=== PATIENT | male | born 1965 | race Caucasian/White ===

== ENCOUNTER 2016-05-02 14:04 | Inpatient (IN) | payer MEDICAID ==
[2016-05-02] VITALS (13 sets, daily range): BP systolic 73–164; BP diastolic 49–94
[~2016-05-02] VITALS: Ht 182.9 cm; Wt 73.3 kg
[~2016-05-02 14:04] MED LIST: ACID1TAB5 PO; ALB0.5V; ALPR.5T PO; ASPI-892; ASPI-933 PO; BACL20TA PO; BUDE6HFA IH; COLL30OI TOP; DOXY100C49 PO; FLC100T1 PO; FLDR.1T PO; FLUT1DIS27; FURO80TA; INSU100V6; LEVO500T69 PO; LEXAPRO; LNS30CCR; LNS30CCR PO; MELO-198 PO; METR500T PO; MULT-608; NF-METANX; NF-METANX PO; PIOG1TAB PO; ROSI1TAB; SITA100T PO; SLMFT1E; TIOT18CA; VITAMIN C; [UNRECOGNIZED DRUG - CODE]
[2016-05-02] MEDS ORDERED: NS IV 1000 ML 1,000 ML IV PRN (14:14)
[2016-05-02] MEDS ORDERED: PHARMACY TO DOSE IV SCH (14:15)
[2016-05-02] MEDS ORDERED: cefTRIAXone INJECTION 1,000 MG in NORMAL SALINE (BAXTER MINI) 50 ML IV SCH (14:30)
--- OUTSIDE RECORDS SUMMARY | 2016-05-02 14:31 | XMS REPORT | Continuity of Care Document ---
Author Author [facility] Organization [facility] Address Unknown Phone Unavailable Care Team Providers Care Soil Expert Name Role Phone CHELA PISANO DO PCP Insurance Providers Payer Name Policy Number Subscriber Name Relationship [facility] [employer] [id number] Abner Hancock 18 Self / Same As Patient Advance Directives Directive Response Recorded Date/Time Advance Directives No 06/30/10 7:08pm Health Care Power of Security Monitor No 06/30/10 7:08pm Organ Donor No 06/30/10 7:08pm Problems No known problems or medical conditions. Medications Medication Dose Route Sig Days/Qty Instructions Order Date Discontinued Date Status Insulin Glargine 08/14/08 01/10/09 Discontinued Salmeterol Xinafoate/Fluticasone 08/14/08 01/10/09 Discontinued Tiotropium [place] 08/14/08 09/02/08 Discontinued Albuterol 08/14/08 01/10/09 Discontinued Furosemide 08/14/08 09/02/08 Discontinued Papaverine Hcl 08/14/08 01/10/09 Discontinued Baclofen (Lioresal) 20 Mg PO THREE TIMES A DAY 08/14/08 Active Me-Cobalam/Lm-Folate/Pyridoxal 08/14/08 01/10/09 Discontinued Rosiglitazone/Metformin Hcl 08/14/08 01/10/09 Discontinued Aspirin 08/14/08 01/10/09 Discontinued Lansoprazole 08/14/08 09/02/08 Discontinued Alprazolam 1 Tab PO TWICE A DAY 30 Qty 08/14/08 Active Me-Cobalam/Lm-Folate/Pyridoxal 1 Tab PO 2XDAILY 09/02/08 Active Lansoprazole 30 Mg PO DAILY 09/02/08 Active Salmeterol Xinafoate/Fluticasone 09/02/08 01/10/09 Discontinued Tiotropium [place] 09/02/08 01/10/09 Discontinued [Lexapro] 09/02/08 01/10/09 Discontinued Doxycycline Hyclate 100 Mg PO bid 14 Qty 10/15/08 07/12/10 Discontinued Meloxicam (Mobic) 1 Each PO bidpc 10 Qty 10/15/08 07/12/10 Discontinued Multivitamins 01/10/09 06/30/10 Discontinued [Vitamin C] 01/10/09 06/30/10 Discontinued Rosiglitazone/Metformin Hcl 01/10/09 06/30/10 Discontinued Fludrocortisone Acetate 0.05 Mg PO DAILY 06/30/10 07/12/10 Discontinued Sitagliptin Phosphate 1 Each PO DAILY 06/30/10 Active Levofloxacin 1 Each PO DAILY STARTED ON 06/27/10 06/30/10 07/12/10 Discontinued Aspirin 81 Mg PO DAILY 06/30/10 Active Pioglitazone Hcl/Metformin Hcl 1 Each PO 06/30/10 Active Fluconazole 1 Each PO TWICE A DAY 10 Days 07/12/10 Active Metronidazole (Flagyl) 1 Each PO THREE TIMES A DAY 10 Days 07/12/10 Active Budesonide/Formoterol Fumarate 2 Puff IH TWICE A DAY 07/12/10 Active Collagenase 0 TOP TWICE A DAY 07/12/10 Active Acidophilus 2 Each PO TWICE A DAY 07/12/10 Active Social History No social history. Hospital Discharge Instructions No hospital discharge instructions. Plan of Care No plan of care. Functional Status No functional status results. Allergies, Adverse Reactions, Alerts Allergen Type Severity Reaction Status Last Updated Soap Allergy Unknown Active 05/25/08 povidone-iodine ([id number]) Allergy Unknown Active 05/25/08 Immunizations No immunization records. Vital Signs No known vital signs results. Results Laboratory Results Test Name Result Units Flags Reference Collection Date/Time Result Date/ Time Comments Urine Color YELLOW 07/15/2014 4:00pm 07/15/2014 5:06pm Urine Clarity SLIGHTLY CLOUDY 07/15/2014 4:00pm 07/15/2014 5:06pm Urine pH 6 5-9 07/15/2014 4:00pm 07/15/2014 5:06pm Urine Specific [place] 1.010 * 1.016-1.022 07/15/2014 4:00pm 2014 5:06pm Urine Protein NEGATIVE NEGATIVE 07/15/2014 4:00pm 07/15/2014 5:06pm Urine Glucose (UA) 3+ * NEGATIVE 07/15/2014 4:00pm 07/15/2014 5:06pm Urine RBC (Auto) 1+ * NEGATIVE 07/15/2014 4:00pm 07/15/2014 5:06pm Urine Ketones NEGATIVE NEGATIVE 07/15/2014 4:00pm 07/15/2014 5:06pm Urine Nitrite POSITIVE * NEGATIVE 07/15/2014 4:00pm 07/15/2014 5:06pm Urine Bilirubin NEGATIVE NEGATIVE 07/15/2014 4:00pm 07/15/2014 5: 06pm Urine Urobilinogen NORMAL MG/DL NORMAL 07/15/2014 4:00pm 07/15/2014 5: 06pm Urine Leukocyte Esterase 3+ * NEGATIVE 07/15/2014 4:00pm 07/15/2014 5: 06pm Urine RBC 2-5 /HPF * 07/15/2014 4:00pm 07/15/2014 5:06pm Urine WBC TNTC /HPF * 07/15/2014 4:00pm 07/15/2014 5:06pm Urine Bacteria LARGE /HPF * 07/15/2014 4:00pm 07/15/2014 5:06pm Urine Crystals NONE /LPF 07/15/2014 4:00pm 07/15/2014 5:06pm Urine Casts NONE /LPF 07/15/2014 4:00pm 07/15/2014 5:06pm Urine Mucus NEGATIVE /LPF 07/15/2014 4:00pm 07/15/2014 5:06pm Urine Culture Indicated YES 07/15/2014 4:00pm 07/15/2014 5:06pm Microbiology Results Procedure Source Result Collection Date/Time Result Date/Time Urine Culture Urine, Clean Catch ESCHERICHIA COLI 07/15/2014 4:00pm 2014 7:39am Procedures No known history of procedures. Encounters Encounter Location Date/Time Discharged Recurring [facility] 07/15/14 12:00pm Registered Clinic [facility] 07/08/14 12:01pm
[2016-05-02] MEDS ORDERED: FLUCONAZOLE 100 MG/50 ML 50 ML IV NR (14:44)
[2016-05-02] MEDS ORDERED: BISA10SU6 RC (15:03)
[2016-05-02] MEDS ORDERED: BACL20TA PO (15:03)
[2016-05-02] MEDS ORDERED: PIOG1TAB34 PO (15:03)
[2016-05-02] MEDS ORDERED: CIPR250T3 PO (15:03)
[2016-05-02] MEDS ORDERED: SITA100T12 PO (15:03)
[2016-05-02] MEDS ORDERED: ALPR0.5T7 PO (15:03)
--- NOTE | 2016-05-02 15:09 | Diagnostic Imaging Report ---
INDICATION: Sepsis. COMPARISON: 10/15/2008. FINDINGS: Air trapping is a symmetric chronic finding. Some mild prominence of the left lower lobe interstitial markings reflects a subtle change from the prior exam and the possibility of early changes of pneumonia could not be excluded. No effusion or pneumothorax. The heart size and vascularity are within normal limits and unchanged. IMPRESSION: While there are chronic features of COPD present, subtle increased parenchymal density in the left lower lobe has developed and the change itself raises the question of early subtle features of left lower lobe pneumonia. Dictated by: Dictated on workstation # [id number]
[2016-05-02] MEDS ORDERED: LACT1CAP61 PO (15:21)
[2016-05-02] MEDS ORDERED: ASCO-262 PO (15:21)
[2016-05-02] MEDS ORDERED: CRAN1CAP7 PO (15:21)
[2016-05-02] MEDS ORDERED: DOCU100C37 PO (15:21)
[2016-05-02] MEDS ORDERED: LANS30CA PO (15:21)
[2016-05-02 16:00] LABS: BASOPHILS % (AUTO) 0 % (0-10); EOSINOPHILS # (AUTO) 0.1 10^3/uL (0.0-0.3); EOSINOPHILS % (AUTO) 0 % (0-10); LYMPHOCYTES # (AUTO) 0.9 X 10^3 (1.0-4.0); LYMPHOCYTES % (AUTO) 5 % (12-44); MEAN CORPUSCULAR HEMOGLOBIN 28 PG (25-34); MEAN CORPUSCULAR HGB CONC 33 G/DL (32-36); MEAN CORPUSCULAR VOLUME 83 FL (80-99); MONOCYTES # (AUTO) 1.1 X 10^3 (0.0-1.0); MONOCYTES % (AUTO) 6 % (0-12); NEUTROPHILS # (AUTO) 15.6 X 10^3 (1.8-7.8); NEUTROPHILS % (AUTO) 89 % (42-75); PLATELET COUNT 174 10^3/uL (130-400); RED BLOOD COUNT 5.53 10^6/uL (4.35-5.85); RED CELL DISTRIBUTION WIDTH 14.9 % (10.0-14.5); WHITE BLOOD COUNT 17.7 10^3/uL (4.3-11.0)
[2016-05-02 16:18] LABS: ALANINE AMINOTRANSFERASE 18 U/L (0-55); ALBUMIN 4.2 G/DL (3.2-4.5); ANION GAP 14 MMOL/L (5-14); ASPARTATE AMINO TRANSFERASE 18 U/L (5-34); BAND NEUTROPHILS 1 %; BASOPHILS % (MANUAL) 0 %; BILIRUBIN,TOTAL 0.8 MG/DL (0.1-1.0); BLOOD UREA NITROGEN 10 MG/DL (7-18); BUN/CREATININE RATIO 14; CALCIUM 9.1 MG/DL (8.5-10.1); CARBON DIOXIDE 21 MMOL/L (21-32); CHLORIDE 103 MMOL/L (98-107); CREATININE SERUM 0.69 MG/DL (0.60-1.30); EOSINOPHILS % (MANUAL) 2 %; GFR ESTIMATED > 60; GLUCOSE 152 MG/DL (70-105); INR 1.1 (0.8-1.4); LYMPHOCYTES % (MANUAL) 6 %; METAMYELOCYTES % 1 %; NEUTROPHILS % (MANUAL) 84 %; POTASSIUM 3.8 MMOL/L (3.6-5.0); SODIUM 138 MMOL/L (135-145); TOTAL PROTEIN 7.8 G/DL (6.4-8.2)
[2016-05-02] MEDS: NS IV 1000 ML 1,000 ML IV SCH ×4 (16:39→21:32)
[2016-05-02] MEDS: NOREPINEPHRINE FOR DRIPS 4 MG in D5W 250 ML (IVPB) 250 ML IV SCH ×3 (16:40→22:37)
[2016-05-02] MEDS ORDERED: ACETAMINOPHEN 325 MG TABLET/CAPLET (TYLENOL) ONE (17:15)
[2016-05-02] MEDS ORDERED: ACETAMINOPHEN 325 MG TABLET/CAPLET (TYLENOL) PO PRN (17:30)
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
[2016-05-02] MEDS ORDERED: ACETAMINOPHEN 500 MG TAB (TYLENOL) PO PRN (19:00)
[2016-05-02] MEDS ORDERED: RT-ALBUTEROL/IPRATROPIUM 3 ML (DUONEB) VIAL INH PRN (20:45)
[2016-05-02] MEDS ORDERED: [UNRECOGNIZED DRUG - OTHER] PO SCH (21:00)
[2016-05-02] MEDS ORDERED: LACTOBACILLUS RHAMNOSUS R11 PO SCH (21:00)
[2016-05-02] MEDS ORDERED: METFORMIN HCL PO SCH (21:00)
[2016-05-02] MEDS ORDERED: NON-FORMULARY MEDICATION 1 EA EA (Baclofen 20 MG) PO SCH (21:00)
[2016-05-02] MEDS ORDERED: PIOGLITAZONE HCL PO SCH (21:00)
[2016-05-02] MEDS: RT-ALBUTEROL/IPRATROPIUM 3 ML (DUONEB) VIAL INH SCH (21:40)
[2016-05-02] MEDS: DOCUSATE SODIUM 100 MG (COLACE) CAP PO SCH (22:04)
[2016-05-02] MEDS: LACTOBACILLUS Acidoph/Bulgar (LACTINEX/FLORANEX) TAB PO SCH (22:04)
[2016-05-02] MEDS: BACLOFEN 10 MG (LIORESAL) TAB PO SCH (22:05)
[2016-05-03] VITALS (24 sets, daily range): BP systolic 88–147; BP diastolic 48–96
[2016-05-03] MEDS: NS IV 1000 ML 1,000 ML IV SCH ×6 (01:42→22:14)
[2016-05-03] MEDS: RT-ALBUTEROL/IPRATROPIUM 3 ML (DUONEB) VIAL INH SCH ×4 (02:36→19:54)
[2016-05-03] MEDS: NOREPINEPHRINE FOR DRIPS 4 MG in D5W 250 ML (IVPB) 250 ML IV SCH ×4 (03:34→23:34)
[2016-05-03 04:56] LABS: BASOPHILS % (AUTO) 0 % (0-10); EOSINOPHILS # (AUTO) 0.2 10^3/uL (0.0-0.3); EOSINOPHILS % (AUTO) 2 % (0-10); LYMPHOCYTES # (AUTO) 1.6 X 10^3 (1.0-4.0); LYMPHOCYTES % (AUTO) 10 % (12-44); MEAN CORPUSCULAR HEMOGLOBIN 28 PG (25-34); MEAN CORPUSCULAR HGB CONC 34 G/DL (32-36); MEAN CORPUSCULAR VOLUME 83 FL (80-99); MEAN PLATELET VOLUME 12.8 FL (7.4-10.4); MONOCYTES # (AUTO) 0.9 X 10^3 (0.0-1.0); MONOCYTES % (AUTO) 6 % (0-12); NEUTROPHILS # (AUTO) 12.4 X 10^3 (1.8-7.8); NEUTROPHILS % (AUTO) 82 % (42-75); PLATELET COUNT 175 10^3/uL (130-400); RED CELL DISTRIBUTION WIDTH 14.9 % (10.0-14.5); WHITE BLOOD COUNT 15.2 10^3/uL (4.3-11.0)
[2016-05-03 05:06] LABS: INR 1.2 (0.8-1.4); PROTHROMBIN TIME PATIENT 14.5 SEC (12.2-14.7)
[2016-05-03 05:16] LABS: ANION GAP 11 MMOL/L (5-14); BLOOD UREA NITROGEN 6 MG/DL (7-18); BUN/CREATININE RATIO 10; CARBON DIOXIDE 19 MMOL/L (21-32); CHLORIDE 111 MMOL/L (98-107); CREATININE SERUM 0.61 MG/DL (0.60-1.30); GFR ESTIMATED > 60; GLUCOSE 191 MG/DL (70-105); MAGNESIUM 1.7 MG/DL (1.8-2.4); PHOSPHORUS 2.5 MG/DL (2.3-4.7); POTASSIUM 3.3 MMOL/L (3.6-5.0); SODIUM 141 MMOL/L (135-145)
[2016-05-03 05:54] LABS: ALANINE AMINOTRANSFERASE 15 U/L (0-55); ALBUMIN 3.5 G/DL (3.2-4.5); ANION GAP 11 MMOL/L (5-14); ASPARTATE AMINO TRANSFERASE 14 U/L (5-34); BILIRUBIN,TOTAL 0.6 MG/DL (0.1-1.0); BLOOD UREA NITROGEN 6 MG/DL (7-18); BUN/CREATININE RATIO 10; CARBON DIOXIDE 19 MMOL/L (21-32); CHLORIDE 111 MMOL/L (98-107); CREATININE SERUM 0.62 MG/DL (0.60-1.30); GFR ESTIMATED > 60; GLUCOSE 194 MG/DL (70-105); POTASSIUM 3.2 MMOL/L (3.6-5.0); SODIUM 141 MMOL/L (135-145); TOTAL PROTEIN 6.6 G/DL (6.4-8.2)
[2016-05-03] MEDS: POTASSIUM CL 10MEQ/50ML IVPB 50 ML IV SCH (06:00)
[2016-05-03] MEDS: MAGNESIUM 1 GM/100 ML IVPB 100 ML IV SCH ×3 (06:00→08:58)
[2016-05-03] MEDS: KCL 20 MEQ TAB (K-DUR) PO SCH (06:00)
[2016-05-03] MEDS: metFORMIN 850 MG (GLUCOPHAGE) TAB PO SCH ×2 (06:51→17:38)
[2016-05-03] MEDS: PIOGLITAZONE 30MG (ACTOS) TAB PO SCH ×2 (06:51→17:39)
[2016-05-03] MEDS: sitaGLIPtin 50 MG (JANUVIA) TAB PO SCH (06:52)
[2016-05-03] MEDS: PANTOPRAZOLE 40 MG (PROTONIX) TAB PO SCH (06:52)
[2016-05-03] MEDS ORDERED: KCL 20 MEQ TAB (K-DUR) PO ONE ×2 (07:00→09:00)
[2016-05-03] MEDS ORDERED: MEROPENEM 1,000 MG in NORMAL SALINE (BAXTER MINI) 100 ML IV ONE (09:00)
[2016-05-03] MEDS ORDERED: NON-FORMULARY MEDICATION 1 EA EA (Sitagliptin Phosphate (Januvia) 100 MG) PO SCH (09:00)
--- NOTE | 2016-05-03 10:17 | Diagnostic Imaging Report ---
INDICATION: Dyspnea. TECHNIQUE: Single view chest at 4:51 a.m. CORRELATION STUDY: 05/02/2016. FINDINGS: The patient is significantly rotated on this study. There is also incomplete visualization of the left lung base. Given this, the heart size is enlarged. Vasculature is within normal limits. Mediastinum is mildly prominent. Incompletely visualized lung hernandez are overall clear. No infiltrate. Multiple wires over the lower cervical spine. IMPRESSION: 1. Cardiac enlargement without failure or otherwise acute findings of the chest. Dictated by: Dictated on workstation # [id number]
[2016-05-03] MEDS: BACLOFEN 10 MG (LIORESAL) TAB PO SCH ×3 (10:20→20:50)
[2016-05-03] MEDS: MEROPENEM 500 MG in NORMAL SALINE (BAXTER MINI) 100 ML IV SCH ×3 (10:21→20:50)
[2016-05-03] MEDS: FLUCONAZOLE 100 MG/50 ML 50 ML IV SCH (10:21)
--- NOTE | 2016-05-03 12:44 | CONSULTATION REPORT ---
DATE OF CONSULTATION: 05/03/2016 ATTENDING PHYSICIAN: Dr. Barrientos. SUMMARY: After reviewing the patient's record at the office and the hospital, this is a 50-year-old white man paraplegic that I had seen referred by Dr. Barrientos back in June of last year 2015 for recurrent UTI. He was wearing a [place] catheter. Quadriplegic but he had some function of his hands a little though. He has been having recurrent UTIs. At that time I put him on vitamin C daily and cranberry juice and/or tablet. We ordered a CT scan at that time. It was essentially negative except for mild distention of the bladder. We talked at that time about cystoscopy, but because of the difficulty ambulation of the patient and require him to do it in the hospital we held off at that time. He is being admitted by Dr. Barrientos because of UTI and sepsis and was found to have retention so catheter was inserted with recovery of large amount of fluid. It is being covered with proper antibiotic and has been responding well. His urine is clear. IMPRESSION: Neurogenic bladder with retention and history of urinary tract infection and with actual present infection and sepsis. PLAN: The patient said that when the nurse catheterized him she felt some me resistance so the patient may need a cystoscopy, which would be easier to do at the hospital, mostly what while he is here. We will talk to Dr. Barrientos and manage accordingly. This was fully explained to the patient. Job ID: [id number] Dictated Date: 05/03/2016 12:03:19 Efficiency Clerk Date: 05/03/2016 12:37:42/jose c
[2016-05-03] MEDS: DOCUSATE SODIUM 100 MG (COLACE) CAP PO SCH (20:50)
[2016-05-03] MEDS: BISACODYL 10 MG SUPP (DULCOLAX) RC PRN (20:50)
[2016-05-03] MEDS: LACTOBACILLUS Acidoph/Bulgar (LACTINEX/FLORANEX) TAB PO SCH (20:50)
[2016-05-04] VITALS (17 sets, daily range): BP systolic 95–149; BP diastolic 61–97
[2016-05-04] MEDS: NS IV 1000 ML 1,000 ML IV SCH ×3 (00:17→16:37)
[2016-05-04] MEDS: RT-ALBUTEROL/IPRATROPIUM 3 ML (DUONEB) VIAL INH SCH ×4 (02:48→20:20)
[2016-05-04] MEDS: MEROPENEM 500 MG in NORMAL SALINE (BAXTER MINI) 100 ML IV SCH ×4 (02:59→20:27)
[2016-05-04 04:00] LABS: INR 1.1 (0.8-1.4); PROTHROMBIN TIME PATIENT 14.1 SEC (12.2-14.7)
[2016-05-04 04:23] LABS: BASOPHILS # (AUTO) 0.1 10^3/uL (0.0-0.1); BASOPHILS % (AUTO) 1 % (0-10); EOSINOPHILS # (AUTO) 0.3 10^3/uL (0.0-0.3); EOSINOPHILS % (AUTO) 2 % (0-10); LYMPHOCYTES # (AUTO) 1.9 X 10^3 (1.0-4.0); LYMPHOCYTES % (AUTO) 18 % (12-44); MEAN CORPUSCULAR HEMOGLOBIN 28 PG (25-34); MEAN CORPUSCULAR HGB CONC 33 G/DL (32-36); MEAN CORPUSCULAR VOLUME 84 FL (80-99); MEAN PLATELET VOLUME 13.2 FL (7.4-10.4); MONOCYTES # (AUTO) 0.9 X 10^3 (0.0-1.0); MONOCYTES % (AUTO) 8 % (0-12); NEUTROPHILS # (AUTO) 7.6 X 10^3 (1.8-7.8); NEUTROPHILS % (AUTO) 71 % (42-75); PLATELET COUNT 184 10^3/uL (130-400); RED BLOOD COUNT 4.54 10^6/uL (4.35-5.85); WHITE BLOOD COUNT 10.7 10^3/uL (4.3-11.0)
[2016-05-04 04:49] LABS: ANION GAP 9 MMOL/L (5-14); BLOOD UREA NITROGEN 8 MG/DL (7-18); BUN/CREATININE RATIO 13; CALCIUM 8.1 MG/DL (8.5-10.1); CARBON DIOXIDE 18 MMOL/L (21-32); CHLORIDE 113 MMOL/L (98-107); CREATININE SERUM 0.62 MG/DL (0.60-1.30); GFR ESTIMATED > 60; GLUCOSE 148 MG/DL (70-105); MAGNESIUM 1.9 MG/DL (1.8-2.4); PHOSPHORUS 2.8 MG/DL (2.3-4.7); POTASSIUM 4.1 MMOL/L (3.6-5.0); SODIUM 140 MMOL/L (135-145)
[2016-05-04] MEDS: MAGNESIUM 1 GM/100 ML IVPB 100 ML IV SCH (05:00)
[2016-05-04] MEDS: KCL 20 MEQ TAB (K-DUR) PO SCH (05:00)
[2016-05-04] MEDS: POTASSIUM CL 10MEQ/50ML IVPB 50 ML IV SCH (05:00)
[2016-05-04 05:06] LABS: ALANINE AMINOTRANSFERASE 13 U/L (0-55); ALBUMIN 3.4 G/DL (3.2-4.5); ANION GAP 9 MMOL/L (5-14); ASPARTATE AMINO TRANSFERASE 11 U/L (5-34); BILIRUBIN,TOTAL 0.4 MG/DL (0.1-1.0); BLOOD UREA NITROGEN 8 MG/DL (7-18); BUN/CREATININE RATIO 13; CARBON DIOXIDE 18 MMOL/L (21-32); CHLORIDE 113 MMOL/L (98-107); CREATININE SERUM 0.61 MG/DL (0.60-1.30); GFR ESTIMATED > 60; GLUCOSE 148 MG/DL (70-105); POTASSIUM 4.1 MMOL/L (3.6-5.0); SODIUM 140 MMOL/L (135-145); TOTAL PROTEIN 6.4 G/DL (6.4-8.2)
[2016-05-04] MEDS: NOREPINEPHRINE FOR DRIPS 4 MG in D5W 250 ML (IVPB) 250 ML IV SCH (05:28)
[2016-05-04] MEDS: PIOGLITAZONE 30MG (ACTOS) TAB PO SCH ×2 (05:38→16:50)
[2016-05-04] MEDS: PANTOPRAZOLE 40 MG (PROTONIX) TAB PO SCH ×2 (05:39→20:27)
[2016-05-04] MEDS: sitaGLIPtin 50 MG (JANUVIA) TAB PO SCH (05:39)
[2016-05-04] MEDS: metFORMIN 850 MG (GLUCOPHAGE) TAB PO SCH ×2 (05:39→16:50)
--- NOTE | 2016-05-04 07:55 | Diagnostic Imaging Report ---
INDICATION: Followup. Sepsis. COMPARISON: 05/03/2016 FINDINGS: Single frontal radiographic view of the chest was obtained and demonstrates stable cardiac silhouette and pulmonary vasculature. There is minimal blunting of the lateral left costophrenic angle and minimal airspace disease in the left base. Appearance is similar compared to 05/02/2016. Right lung is relatively clear. No pneumothorax is seen on either side. Bony structures are stable. IMPRESSION: 1. Minimal left basilar airspace disease suspicious for effusion with atelectasis and/or infiltrate. Lateral view may be of benefit. 2. Persistent cardiomegaly, but no evidence of overt failure. Dictated by: Dictated on workstation # [id number]
[2016-05-04] MEDS: FLUCONAZOLE 100 MG/50 ML 50 ML IV SCH (08:31)
[2016-05-04] MEDS: BACLOFEN 10 MG (LIORESAL) TAB PO SCH ×3 (08:32→20:27)
--- NOTE | 2016-05-04 09:48 | Progress Note-Urology ---
Progress Note-Urology Progress Notes/Assess & Plan Progress/Assessment & Plan continue better, plan 1. keep you in when discharge 2. needs cysto either in hospital or office later on once UTI resolved plan office appointment in in 1 week Final Diagnosis Urine retention, neurogenic bladder, and UTI BECCA EVANS MD May 04, 2016 09:47
--- NOTE | 2016-05-04 11:34 | Progress Note (SOAP) ---
Subjective Subjective/Events-last exam Late entry for 05/03/16. Fwup UTI with Sepsis, hypotension, early pneumonia, diabetes mellitus type II, COPD, tobacco abuse. Gross Hematuria improved. Does admit to some recent cough. Wants to discuss possible indwelling catheter rather then [place] catheter with urology due to thinks not emptying bladder fully. Objective Exam Vital Signs Date Time Temp Pulse Resp B/P Pulse Ox O2 Delivery O2 Flow Rate FiO2 05/04/16 09:12 92 Room Air 05/04/16 08:00 98.7 Room Air 05/04/16 08:00 96 Room Air 05/04/16 06:00 67 128/72 95 NIV/CPAP 05/04/16 05:00 69 148/97 95 NIV/CPAP 05/04/16 04:05 98.1 05/04/16 04:00 94 Room Air 05/04/16 04:00 77 143/84 94 NIV/CPAP 05/04/16 03:00 87 109/69 95 NIV/CPAP 05/04/16 02:48 94 Room Air 05/04/16 02:00 68 108/77 93 NIV/CPAP 05/04/16 01:00 75 127/80 92 NIV/CPAP 05/04/16 01:00 76 05/04/16 00:00 99.8 80 114/80 94 NIV/CPAP 05/04/16 00:00 94 Room Air 05/03/16 23:00 73 106/70 95 Room Air 05/03/16 22:00 77 147/93 92 Room Air 05/03/16 21:00 82 123/96 92 Room Air 05/03/16 20:05 98.2 05/03/16 20:00 94 Room Air 05/03/16 20:00 78 109/68 99 Room Air 05/03/16 19:55 95 Room Air 05/03/16 19:00 73 92/56 93 Nasal Cannula 3.00 05/03/16 19:00 83 05/03/16 18:00 76 121/82 95 Nasal Cannula 3.00 05/03/16 17:00 77 118/71 95 Nasal Cannula 3.00 05/03/16 16:21 99.7 05/03/16 16:00 96 Room Air 05/03/16 16:00 80 114/76 93 Nasal Cannula 3.00 05/03/16 15:00 87 110/68 93 Nasal Cannula 3.00 05/03/16 14:23 95 Room Air 05/03/16 14:00 81 94/57 92 Nasal Cannula 3.00 05/03/16 13:00 80 88/48 93 Nasal Cannula 3.00 05/03/16 13:00 82 05/03/16 12:00 78 105/86 93 Nasal Cannula 3.00 05/03/16 12:00 98.0 05/03/16 12:00 96 Room Air I & O 05/04/16 07:00 Intake Total 5020 ml Output Total 5000 ml Balance 20 ml Capillary Refill : General Appearance: No Apparent Distress Neck: Supple Respiratory: Lungs Clear Decreased Breath Sounds Cardiovascular: Regular Rate, Rhythm Gallop/S3 Gastrointestinal: normal bowel sounds non tender soft Extremity: Non Tender No Calf Tenderness No Pedal Edema Neurologic/Psychiatric: Alert Oriented x3 Results Lab Laboratory Tests 05/03/16 15:28: Glucometer 177H 05/03/16 18:35: Glucometer 146H 05/04/16 03:24: Activated Partial Thromboplast Time 28, Alanine Aminotransferase (ALT/SGPT) 13, Albumin 3.4, Alkaline Phosphatase 59, Anion Gap 9, Aspartate Amino Transf (AST/ SGOT) 11, BUN/Creatinine Ratio 13, Basophils # (Auto) 0.1, Basophils (%) (Auto) 1, Blood Urea Nitrogen 8, Calcium Level 8.1L, Carbon Dioxide Level 18L, Chloride Level 113H, Creatinine 0.62, Eosinophils # (Auto) 0.3, Eosinophils (%) (Auto) 2, Estimat Glomerular Filtration Rate > 60, Glucose Level 148H, Hematocrit 38L, Hemoglobin 12.6L, INR Comment 1.1, Lymphocytes # (Auto) 1.9, Lymphocytes (%) (Auto) 18, Magnesium Level 1.9, Mean Corpuscular Hemoglobin 28, Mean Corpuscular Hemoglobin Concent 33, Mean Corpuscular Volume 84, Mean Platelet Volume 13.2H, Monocytes # (Auto) 0.9, Monocytes (%) (Auto) 8, Neutrophils # (Auto) 7.6, Neutrophils (%) (Auto) 71, Phosphorus Level 2.8, Platelet Count 184, Potassium Level 4.1, Prothrombin Time 14.1, Red Blood Count 4.54, Red Cell Distribution Width 15.0H, Sodium Level 140, Total Bilirubin 0.4, Total Protein 6.4, White Blood Count 10.7 Microbiology 05/02/16 Blood Culture - Preliminary, Resulted No growth 05/02/16 Gram Stain - Final, Resulted 05/02/16 Sputum Culture - Preliminary, Resulted Usual/normal walter isolated. 05/02/16 Urine Culture - Preliminary, Resulted Escherichia Coli Assessment/Plan Assessment/Plan Assess & Plan/Chief Complaint 1. UTI with Sepsis--growing out E. coli--hx of pseudomonas--continue merrem 2. Early Pneumonia--improving 3. Hypotension--improved 4. Diabetes mellitus--continue SSI 5. COPD--stable 6. Paraplegic with neurogenic bladder--urology consulted to discuss possible catheter change Diagnosis/Problems: Clinical Quality Measures DVT/VTE Risk/Contraindication: Risk Factor Score Per Nursin RFS Level Per Nursing on Admit: 4+=Very High CHELA PISANO DO May 04, 2016 11:34
--- NOTE | 2016-05-04 11:37 | Progress Note (SOAP) ---
Subjective Subjective/Events-last exam Fwup UTI with Sepsis, hypotension, early pneumonia, diabetes mellitus type II, COPD, tobacco abuse. Feeling better. Still with some sweats. Objective Exam Vital Signs Date Time Temp Pulse Resp B/P Pulse Ox O2 Delivery O2 Flow Rate FiO2 05/04/16 09:12 92 Room Air 05/04/16 08:00 98.7 Room Air 05/04/16 08:00 96 Room Air 05/04/16 06:00 67 128/72 95 NIV/CPAP 05/04/16 05:00 69 148/97 95 NIV/CPAP 05/04/16 04:05 98.1 05/04/16 04:00 94 Room Air 05/04/16 04:00 77 143/84 94 NIV/CPAP 05/04/16 03:00 87 109/69 95 NIV/CPAP 05/04/16 02:48 94 Room Air 05/04/16 02:00 68 108/77 93 NIV/CPAP 05/04/16 01:00 75 127/80 92 NIV/CPAP 05/04/16 01:00 76 05/04/16 00:00 99.8 80 114/80 94 NIV/CPAP 05/04/16 00:00 94 Room Air 05/03/16 23:00 73 106/70 95 Room Air 05/03/16 22:00 77 147/93 92 Room Air 05/03/16 21:00 82 123/96 92 Room Air 05/03/16 20:05 98.2 05/03/16 20:00 94 Room Air 05/03/16 20:00 78 109/68 99 Room Air 05/03/16 19:55 95 Room Air 05/03/16 19:00 73 92/56 93 Nasal Cannula 3.00 05/03/16 19:00 83 05/03/16 18:00 76 121/82 95 Nasal Cannula 3.00 05/03/16 17:00 77 118/71 95 Nasal Cannula 3.00 05/03/16 16:21 99.7 05/03/16 16:00 96 Room Air 05/03/16 16:00 80 114/76 93 Nasal Cannula 3.00 05/03/16 15:00 87 110/68 93 Nasal Cannula 3.00 05/03/16 14:23 95 Room Air 05/03/16 14:00 81 94/57 92 Nasal Cannula 3.00 05/03/16 13:00 80 88/48 93 Nasal Cannula 3.00 05/03/16 13:00 82 05/03/16 12:00 78 105/86 93 Nasal Cannula 3.00 05/03/16 12:00 98.0 05/03/16 12:00 96 Room Air I & O 05/04/16 07:00 Intake Total 5020 ml Output Total 5000 ml Balance 20 ml Capillary Refill : General Appearance: No Apparent Distress Neck: Supple Respiratory: Lungs Clear Decreased Breath Sounds Cardiovascular: Regular Rate, Rhythm Systolic Murmur Gallop/S3 Gastrointestinal: normal bowel sounds non tender soft Extremity: Non Tender No Calf Tenderness No Pedal Edema Neurologic/Psychiatric: Alert Oriented x3 Results Lab Laboratory Tests 05/03/16 15:28: Glucometer 177H 05/03/16 18:35: Glucometer 146H 05/04/16 03:24: Activated Partial Thromboplast Time 28, Alanine Aminotransferase (ALT/SGPT) 13, Albumin 3.4, Alkaline Phosphatase 59, Anion Gap 9, Aspartate Amino Transf (AST/ SGOT) 11, BUN/Creatinine Ratio 13, Basophils # (Auto) 0.1, Basophils (%) (Auto) 1, Blood Urea Nitrogen 8, Calcium Level 8.1L, Carbon Dioxide Level 18L, Chloride Level 113H, Creatinine 0.62, Eosinophils # (Auto) 0.3, Eosinophils (%) (Auto) 2, Estimat Glomerular Filtration Rate > 60, Glucose Level 148H, Hematocrit 38L, Hemoglobin 12.6L, INR Comment 1.1, Lymphocytes # (Auto) 1.9, Lymphocytes (%) (Auto) 18, Magnesium Level 1.9, Mean Corpuscular Hemoglobin 28, Mean Corpuscular Hemoglobin Concent 33, Mean Corpuscular Volume 84, Mean Platelet Volume 13.2H, Monocytes # (Auto) 0.9, Monocytes (%) (Auto) 8, Neutrophils # (Auto) 7.6, Neutrophils (%) (Auto) 71, Phosphorus Level 2.8, Platelet Count 184, Potassium Level 4.1, Prothrombin Time 14.1, Red Blood Count 4.54, Red Cell Distribution Width 15.0H, Sodium Level 140, Total Bilirubin 0.4, Total Protein 6.4, White Blood Count 10.7 Microbiology 05/02/16 Blood Culture - Preliminary, Resulted No growth 05/02/16 Gram Stain - Final, Resulted 05/02/16 Sputum Culture - Preliminary, Resulted Usual/normal walter isolated. 05/02/16 Urine Culture - Preliminary, Resulted Escherichia Coli Assessment/Plan Assessment/Plan Assess & Plan/Chief Complaint 1. UTI with Sepsis--growing out E. coli--hx of pseudomonas--continue merrem 2. Early Pneumonia--improving 3. Hypotension--improved 4. Diabetes mellitus--continue SSI 5. COPD--stable 6. Paraplegic with neurogenic bladder--urology consulted to discuss possible catheter change 7. Transfer to medical Diagnosis/Problems: Clinical Quality Measures DVT/VTE Risk/Contraindication: Risk Factor Score Per Nursin RFS Level Per Nursing on Admit: 4+=Very High CHELA PISANO DO May 04, 2016 11:37
--- NOTE | 2016-05-04 15:47 | Physical Therapy Evaluation ---
PT Evaluation-General Medical Diagnosis Admission Date May 02, 2016 at 14:27 Medical Diagnosis: sepsis/UTI Onset Date: May 02, 2016 Therapy Diagnosis Therapy Diagnosis: decreased ROM Height/Weight Height (Feet): 6 Height (Inches): 0.00 Weight (Pounds): 161 Weight (Ounces): 9.0 Precautions Precautions/Isolations: Fall Prevention, Standard Precautions, Pressure Ulcer Referral Physician: Floyd Reason for Referral: Evaluation/Treatment Medical History Pertinent Medical History: COPD, DM, Smoking Additional Medical History paraplegic with neurogenic bladder and chronic UTI's Current History sudden onset hematuria with c/o chills and diaphoresis and hypotensive Reviewed History: Yes Social History Home: Single Level Current Living Status: Spouse Entry Into Home: Ramp uses arash lift Prior/Core FIM Prior Level of Function Functional [place] Measure 0=Not Assessed/NA 4=Minimal Assistance 1=Total Assistance 5=Supervision or Setup 2=Maximal Assistance 6=Modified [place] 3=Moderate Assistance 7=Complete [place] Bed Mobility: 1 Transfers (B,C,W/C) (FIM): 1 arash lift and power chair PT Evaluation-Current Subjective Patient states, "I just need ROM!" Pain Numeric Pain Scale: 0-No Pain Location: No Pain Reported Objective Patient Orientation: Normal For Age Problem Solving: Good Attachments: SCD's, IV ROM/Strength ROM Lower Extremities limited ROM bilateral ankles and hips due to tone and clonus Strenght Lower Extremities NA Neuromuscular (Tone, Coordination, Reflexes) noted clonus bilateral LE and extension tone with movement Sensory Vision: Functional Hearing: Functional Sensation Right Lower Extremit: Impaired Sensation Left Lower Extremity: Impaired Transfers Functional [place] Measure 0=Not Assessed/NA 4=Minimal Assistance 1=Total Assistance 5=Supervision or Setup 2=Maximal Assistance 6=Modified [place] 3=Moderate Assistance 7=Complete [place] Treatment bilateral LE PROM all planes in supine x 15 min Assessment/Needs 50 y.o. male, paraplegic, will benefit from short term skilled PT to address ROM bilateral LE to prevent further diminished function. Patient uses a Arash lift for transfers PLOF. Nursing to perform this task as it is not a skilled function. Rehab Potential: Fair Post Rehab Potential-Barriers: chronic UTIs PT Short Term Goals Short Term Goals Time Frame: May 09, 2016 Additional Short Term Goals bilateral LE PROM all planes PT Plan Problem List Problem List: ROM Treatment/Plan Treatment Plan: Continue Plan of Care Treatment Plan: Education, Other (ROM) Treatment Duration: May 09, 2016 # of days/week 5 Visits Per Week: 5 Pt/Family Agrees w/Plan: Yes Safety Risks/Education Patient Education: Disease Process Teaching Recipient: Patient Teaching Methods: Discussion Response to Teaching: Verbalize Understanding Time/GCodes Time In: 1520 Time Out: 1535 Total Billed Treatment Time: 15 Total Billed Treatment 1 visit [facility] 15 min G Codes Necessary: ERMELINDA Owens PT May 04, 2016 15:47
[2016-05-04] MEDS: LACTOBACILLUS Acidoph/Bulgar (LACTINEX/FLORANEX) TAB PO SCH (20:27)
[2016-05-04] MEDS: ACETAMINOPHEN 325 MG TABLET/CAPLET (TYLENOL) PO PRN (20:27)
[2016-05-04] MEDS: BISACODYL 10 MG SUPP (DULCOLAX) RC PRN (20:27)
[2016-05-04] MEDS: DOCUSATE SODIUM 100 MG (COLACE) CAP PO SCH (20:29)
[2016-05-05] VITALS: BP 100/69
[2016-05-05] MEDS: RT-ALBUTEROL/IPRATROPIUM 3 ML (DUONEB) VIAL INH SCH ×4 (03:14→19:32)
[2016-05-05] MEDS: MEROPENEM 500 MG in NORMAL SALINE (BAXTER MINI) 100 ML IV SCH ×4 (03:53→20:19)
[2016-05-05 04:00] VITALS: BP 146/86
[2016-05-05] MEDS: NS IV 1000 ML 1,000 ML IV SCH ×2 (04:09→08:17)
[2016-05-05 05:34] LABS: BASOPHILS # (AUTO) 0.1 10^3/uL (0.0-0.1); BASOPHILS % (AUTO) 1 % (0-10); EOSINOPHILS # (AUTO) 0.3 10^3/uL (0.0-0.3); EOSINOPHILS % (AUTO) 3 % (0-10); LYMPHOCYTES # (AUTO) 1.4 X 10^3 (1.0-4.0); LYMPHOCYTES % (AUTO) 14 % (12-44); MEAN CORPUSCULAR HEMOGLOBIN 28 PG (25-34); MEAN CORPUSCULAR HGB CONC 34 G/DL (32-36); MEAN CORPUSCULAR VOLUME 84 FL (80-99); MEAN PLATELET VOLUME 12.1 FL (7.4-10.4); MONOCYTES # (AUTO) 0.8 X 10^3 (0.0-1.0); MONOCYTES % (AUTO) 8 % (0-12); NEUTROPHILS # (AUTO) 7.5 X 10^3 (1.8-7.8); NEUTROPHILS % (AUTO) 74 % (42-75); PLATELET COUNT 205 10^3/uL (130-400); RED BLOOD COUNT 4.74 10^6/uL (4.35-5.85); RED CELL DISTRIBUTION WIDTH 14.9 % (10.0-14.5); WHITE BLOOD COUNT 10.1 10^3/uL (4.3-11.0)
[2016-05-05 05:41] LABS: INR 1.1 (0.8-1.4); PROTHROMBIN TIME PATIENT 13.5 SEC (12.2-14.7)
[2016-05-05 05:49] LABS: ALANINE AMINOTRANSFERASE 12 U/L (0-55); ALBUMIN 3.7 G/DL (3.2-4.5); ANION GAP 11 MMOL/L (5-14); ASPARTATE AMINO TRANSFERASE 13 U/L (5-34); BILIRUBIN,TOTAL 0.5 MG/DL (0.1-1.0); BLOOD UREA NITROGEN 7 MG/DL (7-18); BUN/CREATININE RATIO 12; CALCIUM 8.8 MG/DL (8.5-10.1); CARBON DIOXIDE 21 MMOL/L (21-32); CHLORIDE 111 MMOL/L (98-107); CREATININE SERUM 0.57 MG/DL (0.60-1.30); GFR ESTIMATED > 60; GLUCOSE 126 MG/DL (70-105); POTASSIUM 3.9 MMOL/L (3.6-5.0); SODIUM 143 MMOL/L (135-145); TOTAL PROTEIN 6.8 G/DL (6.4-8.2)
[2016-05-05] MEDS: KCL 20 MEQ TAB (K-DUR) PO SCH (06:00)
[2016-05-05] MEDS: MAGNESIUM 1 GM/100 ML IVPB 100 ML IV SCH (06:00)
[2016-05-05] MEDS: POTASSIUM CL 10MEQ/50ML IVPB 50 ML IV SCH (06:00)
[2016-05-05 06:07] LABS: ANION GAP 11 MMOL/L (5-14); BLOOD UREA NITROGEN 6 MG/DL (7-18); BUN/CREATININE RATIO 11; CALCIUM 8.9 MG/DL (8.5-10.1); CARBON DIOXIDE 21 MMOL/L (21-32); CHLORIDE 111 MMOL/L (98-107); CREATININE SERUM 0.57 MG/DL (0.60-1.30); GFR ESTIMATED > 60; GLUCOSE 126 MG/DL (70-105); MAGNESIUM 1.8 MG/DL (1.8-2.4); PHOSPHORUS 3.8 MG/DL (2.3-4.7); POTASSIUM 3.9 MMOL/L (3.6-5.0); SODIUM 143 MMOL/L (135-145)
[2016-05-05] MEDS: sitaGLIPtin 50 MG (JANUVIA) TAB PO SCH (06:46)
[2016-05-05] MEDS: metFORMIN 850 MG (GLUCOPHAGE) TAB PO SCH ×2 (06:46→17:00)
[2016-05-05] MEDS: PIOGLITAZONE 30MG (ACTOS) TAB PO SCH ×2 (06:46→17:00)
[2016-05-05 08:00] VITALS: BP 150/89
[2016-05-05] MEDS: FLUCONAZOLE 100 MG/50 ML 50 ML IV SCH (08:17)
[2016-05-05] MEDS: PANTOPRAZOLE 40 MG (PROTONIX) TAB PO SCH ×2 (09:35→20:19)
[2016-05-05] MEDS: BACLOFEN 10 MG (LIORESAL) TAB PO SCH ×3 (09:35→20:19)
--- NOTE | 2016-05-05 09:45 | Physical Therapy Daily Note ---
PT Daily Note-Current Subjective Patient in bed pre tx, agrees to ROM of legs. Nursing apparently would like to get him into a room with a ceiling lift to make it easier to angel luis him into his wheelchair. Pain Numeric Pain Scale: 0-No Pain Appearance Patient in bed post tx with nurse call, phone, tray, all needs met. Mental Status Patient Orientation: Normal For Age Attachments: Sánchez Catheter, IV Transfers Functional [place] Measure 0=Not Assessed/NA 4=Minimal Assistance 1=Total Assistance 5=Supervision or Setup 2=Maximal Assistance 6=Modified [place] 3=Moderate Assistance 7=Complete IndependenceIRFPAI Quality Coding Scale 6 Independent with activity with or without an assistive device 5 Patient requires set up or clean up by helper. Patient completes activity by themselves 4 Supervision or touching assist (CGA). [place] provide cues , steadying assist 3 The helper provides less than half the effort to complete the activity 2 The helper provides more than half the effort to complete the activity 1 Dependent. The helper does all the effort to complete an activity 7 Patient refused to complete or attempt activity 9 The patient did not perform the activity before the current illness or injury 88 Not attempted due to Medical conditions or safety concerns Exercises bilateral lower extremity ROM in all planes Treatments ROM, repositioning Assessment Patient has bilateral knee contractures, he can get about 20 degrees from full knee extension bilaterally PT Short Term Goals Short Term Goals Time Frame: May 09, 2016 PT Plan Problem List Problem List: Activity Tolerance, Functional Strength, Safety, Balance, Transfer, Bed Mobility, ROM Treatment/Plan Treatment Plan: Continue Plan of Care Treatment Plan: Bed Mobility, Education, Functional Activity Yvonne, Other (ROM) , Therapeutic Exercise Treatment Duration: May 09, 2016 Visits Per Week: 5 Safety Risks/Education Patient Education: Correct Positioning Teaching Recipient: Patient Teaching Methods: Demonstration, Discussion Response to Teaching: Reinforcement Needed Time/GCodes Time In: 915 Time Out: 930 Total Billed Treatment Time: 15 Total Billed Treatment 1 visit EX 15 min ZURDO CHONG PT May 05, 2016 09:45
--- NOTE | 2016-05-05 09:58 | Progress Note (SOAP) ---
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 HE HAS UROSEPSIS, CHRONIC [place] CATHETER. HE HAD URINARY RETENTION AND DR. EVANS IS CONSULTED ON THE PATIENT. PT REPORTS THAT HE IS FEELING BETTER TODAY, STILL HAS SOME SYMPTOMS OF INTERMITTENT ELEVATED TEMPERATURE, BUT HE DOES FEEL BETTER THAN ON ADMISSION. Review of Systems General: Fatigue HEENT: No Head Aches Pulmonary: No Dyspnea, No Cough Cardiovascular: No: Chest Pain, Palpitations Gastrointestinal: : Other (PT DOES REPORTS HE PASSES GAS ON HIS OWN, BUT REQURIES SUPPOSITORIES OR RECTAL STIMULATION FOR BOWEL MOVEMENTS)No: Abdominal Pain, Constipation, Nausea Neurological: : WeaknessNo: Confusion Objective Exam Vital Signs Date Time Temp Pulse Resp B/P Pulse Ox O2 Delivery O2 Flow Rate FiO2 05/05/16 08:00 99.8 72 18 150/89 95 Room Air 05/05/16 07:48 94 Room Air 05/05/16 04:02 98.3 05/05/16 04:00 97.9 63 20 146/86 95 Room Air 05/05/16 03:14 92 Room Air 05/05/16 00:00 99.4 77 18 100/69 95 Room Air 05/04/16 20:30 Room Air 05/04/16 20:23 96 Room Air 05/04/16 20:10 98.5 75 20 121/62 95 Room Air 05/04/16 16:15 99.2 82 20 95/66 93 Room Air 05/04/16 16:00 98.5 Room Air 05/04/16 16:00 96 Room Air 05/04/16 15:00 77 119/70 93 Room Air 05/04/16 14:58 94 Room Air 05/04/16 14:00 99/75 91 Room Air 05/04/16 13:00 69 05/04/16 13:00 97/74 94 Room Air 05/04/16 12:00 98.0 Room Air 05/04/16 12:00 70 119/76 93 Room Air 05/04/16 12:00 96 Room Air 05/04/16 11:00 122/73 93 Room Air I & O 05/05/16 07:00 Intake Total 2600 ml Output Total 5800 ml Balance -3200 ml Capillary Refill : General Appearance: No Apparent Distress WD/WN HEENT: PERRL/EOMI Pharynx Normal Neck: Full Range of Motion Respiratory: Chest Non Tender Decreased Breath Sounds (AT BASES) Cardiovascular: Regular Rate, Rhythm Gastrointestinal: normal bowel sounds non tender soft no organomegaly no pulsatile mass Extremity: No Pedal Edema Neurologic/Psychiatric: Alert Oriented x3 Other (PARAPLEGIA - UNABLE TO CONTROL LOWER LEGS, CAN CONTROL ARMS, BUT FINGERS/HANDS ARE NOT MOBILE, CONTRACTED FINGERS) Skin: Warm/Dry Results Lab Laboratory Tests 05/04/16 18:04: Glucometer 174H 05/05/16 05:17: Alanine Aminotransferase (ALT/SGPT) 12, Albumin 3.7, Alkaline Phosphatase 67, Anion Gap 11, Aspartate Amino Transf (AST/SGOT) 13, BUN/Creatinine Ratio 11, Basophils # (Auto) 0.1, Basophils (%) (Auto) 1, Blood Urea Nitrogen 6L, Calcium Level 8.9, Carbon Dioxide Level 21, Chloride Level 111H, Creatinine 0.57L, Eosinophils # (Auto) 0.3, Eosinophils (%) (Auto) 3, Estimat Glomerular Filtration Rate > 60, Glucose Level 126H, Hematocrit 40, Hemoglobin 13.3, Lymphocytes # (Auto) 1.4, Lymphocytes (%) (Auto) 14, Magnesium Level 1.8, Mean Corpuscular Hemoglobin 28, Mean Corpuscular Hemoglobin Concent 34, Mean Corpuscular Volume 84, Mean Platelet Volume 12.1H, Monocytes # (Auto) 0.8, Monocytes (%) (Auto) 8, Neutrophils # (Auto) 7.5, Neutrophils (%) (Auto) 74, Phosphorus Level 3.8, Platelet Count 205, Potassium Level 3.9, Red Blood Count 4.74, Red Cell Distribution Width 14.9H, Sodium Level 143, Total Bilirubin 0.5, Total Protein 6.8, White Blood Count 10.1 05/05/16 05:18: Activated Partial Thromboplast Time 28, INR Comment 1.1, Prothrombin Time 13.5 05/05/16 05:19: Glucometer 122H Microbiology 05/02/16 Blood Culture - Preliminary, Resulted No growth 05/02/16 Gram Stain - Final, Complete 05/02/16 Sputum Culture - Final, Complete Usual/normal walter isolated. 05/02/16 Urine Culture - Preliminary, Resulted Escherichia Coli Probable Coag Negative Staph Yeast Species Assessment/Plan Assessment/Plan Assess & Plan/Chief Complaint ECOLI URINARY TRACT INFECTION NEUROGENIC BLADDER PARAPLEGIA PNEUMONIA DIABETES MELLITUS COPD Diagnosis/Problems: Clinical Quality Measures DVT/VTE Risk/Contraindication: Risk Factor Score Per Nursin RFS Level Per Nursing on Admit: 4+=Very High JOSLYN INIGUEZ MD May 05, 2016 09:58
[2016-05-05 12:00] VITALS: BP 148/84
[2016-05-05 16:00] VITALS: BP 110/60
[2016-05-05 20:00] VITALS: BP 114/62
[2016-05-05] MEDS: LACTOBACILLUS Acidoph/Bulgar (LACTINEX/FLORANEX) TAB PO SCH (20:19)
[2016-05-05] MEDS: DOCUSATE SODIUM 100 MG (COLACE) CAP PO SCH (20:19)
[2016-05-05] MEDS: BISACODYL 10 MG SUPP (DULCOLAX) RC PRN (22:08)
[2016-05-06] VITALS: BP 153/87
[2016-05-06] MEDS: NS IV 1000 ML 1,000 ML IV SCH ×2 (01:46→14:42)
[2016-05-06] MEDS: MEROPENEM 500 MG in NORMAL SALINE (BAXTER MINI) 100 ML IV SCH ×4 (03:46→21:50)
[2016-05-06] MEDS: ALPRAZolam 0.5 MG (XANAX) TAB PO PRN (04:40)
[2016-05-06 05:28] LABS: BASOPHILS # (AUTO) 0.1 10^3/uL (0.0-0.1); BASOPHILS % (AUTO) 1 % (0-10); EOSINOPHILS # (AUTO) 0.3 10^3/uL (0.0-0.3); EOSINOPHILS % (AUTO) 3 % (0-10); LYMPHOCYTES # (AUTO) 1.6 X 10^3 (1.0-4.0); LYMPHOCYTES % (AUTO) 15 % (12-44); MEAN CORPUSCULAR HEMOGLOBIN 28 PG (25-34); MEAN CORPUSCULAR HGB CONC 34 G/DL (32-36); MEAN CORPUSCULAR VOLUME 83 FL (80-99); MEAN PLATELET VOLUME 12.2 FL (7.4-10.4); MONOCYTES # (AUTO) 0.8 X 10^3 (0.0-1.0); MONOCYTES % (AUTO) 7 % (0-12); NEUTROPHILS # (AUTO) 8.3 X 10^3 (1.8-7.8); NEUTROPHILS % (AUTO) 75 % (42-75); PLATELET COUNT 222 10^3/uL (130-400); RED BLOOD COUNT 5.01 10^6/uL (4.35-5.85); RED CELL DISTRIBUTION WIDTH 14.9 % (10.0-14.5); WHITE BLOOD COUNT 11.2 10^3/uL (4.3-11.0)
[2016-05-06 05:50] LABS: INR 1.1 (0.8-1.4); PROTHROMBIN TIME PATIENT 13.6 SEC (12.2-14.7)
[2016-05-06] MEDS: POTASSIUM CL 10MEQ/50ML IVPB 50 ML IV SCH (06:00)
[2016-05-06] MEDS: KCL 20 MEQ TAB (K-DUR) PO SCH (06:00)
[2016-05-06] MEDS: MAGNESIUM 1 GM/100 ML IVPB 100 ML IV SCH (06:00)
[2016-05-06 06:09] LABS: ALANINE AMINOTRANSFERASE 14 U/L (0-55); ALBUMIN 3.7 G/DL (3.2-4.5); ANION GAP 12 MMOL/L (5-14); ASPARTATE AMINO TRANSFERASE 12 U/L (5-34); BILIRUBIN,TOTAL 0.5 MG/DL (0.1-1.0); BLOOD UREA NITROGEN 8 MG/DL (7-18); BUN/CREATININE RATIO 13; CALCIUM 8.9 MG/DL (8.5-10.1); CARBON DIOXIDE 22 MMOL/L (21-32); CHLORIDE 107 MMOL/L (98-107); CREATININE SERUM 0.64 MG/DL (0.60-1.30); GFR ESTIMATED > 60; GLUCOSE 155 MG/DL (70-105); POTASSIUM 3.8 MMOL/L (3.6-5.0); SODIUM 141 MMOL/L (135-145)
[2016-05-06] MEDS: sitaGLIPtin 50 MG (JANUVIA) TAB PO SCH (06:18)
[2016-05-06] MEDS: PIOGLITAZONE 30MG (ACTOS) TAB PO SCH ×2 (06:19→16:31)
[2016-05-06] MEDS: metFORMIN 850 MG (GLUCOPHAGE) TAB PO SCH ×2 (06:19→16:31)
[2016-05-06 06:25] LABS: ANION GAP 13 MMOL/L (5-14); BLOOD UREA NITROGEN 8 MG/DL (7-18); BUN/CREATININE RATIO 13; CARBON DIOXIDE 22 MMOL/L (21-32); CHLORIDE 107 MMOL/L (98-107); CREATININE SERUM 0.64 MG/DL (0.60-1.30); GFR ESTIMATED > 60; GLUCOSE 155 MG/DL (70-105); MAGNESIUM 1.6 MG/DL (1.8-2.4); POTASSIUM 3.8 MMOL/L (3.6-5.0); SODIUM 142 MMOL/L (135-145)
[2016-05-06] MEDS: RT-ALBUTEROL/IPRATROPIUM 3 ML (DUONEB) VIAL INH SCH ×3 (07:30→20:20)
[2016-05-06 08:00] VITALS: BP 128/83
[2016-05-06] MEDS: FLUCONAZOLE 100 MG/50 ML 50 ML IV SCH (08:57)
[2016-05-06] MEDS: BACLOFEN 10 MG (LIORESAL) TAB PO SCH ×3 (08:59→21:50)
[2016-05-06] MEDS: PANTOPRAZOLE 40 MG (PROTONIX) TAB PO SCH ×2 (08:59→21:51)
--- NOTE | 2016-05-06 10:08 | Progress Note (SOAP) ---
Subjective Subjective/Events-last exam PT IS A 50 Y/O MALE WHO IS A CLINIC PATIENT OF DR. 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 THE PATIENT REPORTS THAT HIS SUPPOSITORIES FROM THE HOSPITAL ARE NOT NETTING THE GI RESULTS THAT HE IS USED TO FROM HIS HOME SUPPOSITORIES AND IS WONDERING ABOUT USING HIS HOME MEDICATION FOR BETTER RESULTS. Review of Systems General: Fatigue Malaise Gastrointestinal: : Constipation Genitourinary: Incontinence Retention Neurological: : Weakness Objective Exam Vital Signs Date Time Temp Pulse Resp B/P Pulse Ox O2 Delivery O2 Flow Rate FiO2 05/06/16 08:00 98.0 77 20 128/83 92 Room Air 05/06/16 07:30 92 Room Air 05/06/16 00:00 98.4 72 20 153/87 95 Room Air 05/05/16 20:05 Room Air 05/05/16 20:00 98.7 76 20 114/62 94 Room Air 05/05/16 19:32 95 NIV CPAP 21 05/05/16 16:00 99.4 82 20 110/60 94 Room Air 05/05/16 15:57 96 05/05/16 15:49 96 Room Air 05/05/16 12:00 99.3 70 20 148/84 93 Room Air I & O 05/06/16 07:00 Intake Total 2610 ml Output Total 4575 ml Balance -1965 ml Capillary Refill : General Appearance: WD/WN HEENT: PERRL/EOMI Pharynx Normal Neck: Full Range of Motion Supple Respiratory: Chest Non Tender Decreased Breath Sounds Cardiovascular: Regular Rate, Rhythm Gastrointestinal: normal bowel sounds soft Neurologic/Psychiatric: Alert Oriented x3 Skin: Warm/Dry Lymphatic: No Adenopathy Results Lab Laboratory Tests 05/05/16 11:04: Glucometer 153H 05/05/16 16:20: Glucometer 180H 05/05/16 20:45: Glucometer 130H 05/06/16 05:10: Activated Partial Thromboplast Time 30, Alanine Aminotransferase (ALT/SGPT) 14, Albumin 3.7, Alkaline Phosphatase 67, Anion Gap 13, Aspartate Amino Transf (AST/ SGOT) 12, BUN/Creatinine Ratio 13, Basophils # (Auto) 0.1, Basophils (%) (Auto) 1, Blood Urea Nitrogen 8, Calcium Level 9.0, Carbon Dioxide Level 22, Chloride Level 107, Creatinine 0.64, Eosinophils # (Auto) 0.3, Eosinophils (%) (Auto) 3, Estimat Glomerular Filtration Rate > 60, Glucose Level 155H, Hematocrit 42, Hemoglobin 13.9, INR Comment 1.1, Lymphocytes # (Auto) 1.6, Lymphocytes (%) ( Auto) 15, Magnesium Level 1.6L, Mean Corpuscular Hemoglobin 28, Mean Corpuscular Hemoglobin Concent 34, Mean Corpuscular Volume 83, Mean Platelet Volume 12.2H, Monocytes # (Auto) 0.8, Monocytes (%) (Auto) 7, Neutrophils # ( Auto) 8.3H, Neutrophils (%) (Auto) 75, Phosphorus Level 4.0, Platelet Count 222 , Potassium Level 3.8, Prothrombin Time 13.6, Red Blood Count 5.01, Red Cell Distribution Width 14.9H, Sodium Level 142, Total Bilirubin 0.5, Total Protein 7.0, White Blood Count 11.2H Microbiology 05/02/16 Blood Culture - Preliminary, Resulted No growth 05/02/16 Gram Stain - Final, Complete 05/02/16 Sputum Culture - Final, Complete Usual/normal walter isolated. 05/02/16 Urine Culture - Final, Complete Escherichia Coli Staph, Coag Neg ([facility]) Yeast Species Assessment/Plan Assessment/Plan Assess & Plan/Chief Complaint ECOLI URINARY TRACT INFECTION - PT ON MEROPENEM - CONTINUE WITH CURRENT TREATMENT - DR. EVANS TO SEE PT TOMORROW FOR FURTHER WORK-UP RECOMMENDATIONS. NEUROGENIC BLADDER - FRANKLIN IN PLACE PARAPLEGIA PNEUMONIA - CONTINUE WITH MEROPENEM DIABETES MELLITUS - MONITOR FSBS, ADJUST MEDICATIONS IF NEEDED FOR APPROPRIATE GLUCOSE CONTROL COPD - PT SMOKES, CONTINUE WITH EDUCATION AND SUPPORTIVE CARE. CHRONIC CONSTIPATION DUE TO PARAPLEGIA - DULCOLAX SUPPOSITORIES. Diagnosis/Problems: Clinical Quality Measures DVT/VTE Risk/Contraindication: Risk Factor Score Per Nursin RFS Level Per Nursing on Admit: 4+=Very High JOSLYN INIGUEZ MD May 06, 2016 10:08
[2016-05-06] MEDS ORDERED: BISACODYL 10 MG SUPP (DULCOLAX) PR SCH (14:00)
[2016-05-06] MEDS ORDERED: BISACODYL 10 MG SUPP (DULCOLAX) PR PRN (14:30)
[2016-05-06 16:00] VITALS: BP 95/61
[2016-05-06] MEDS: LACTOBACILLUS Acidoph/Bulgar (LACTINEX/FLORANEX) TAB PO SCH (21:50)
[2016-05-06] MEDS: DOCUSATE SODIUM 100 MG (COLACE) CAP PO SCH (21:51)
[2016-05-07] VITALS: BP 129/71
[2016-05-07] MEDS: MEROPENEM 500 MG in NORMAL SALINE (BAXTER MINI) 100 ML IV SCH ×4 (02:50→21:37)
[2016-05-07 05:17] LABS: BASOPHILS # (AUTO) 0.1 10^3/uL (0.0-0.1); BASOPHILS % (AUTO) 0 % (0-10); EOSINOPHILS # (AUTO) 0.2 10^3/uL (0.0-0.3); EOSINOPHILS % (AUTO) 2 % (0-10); LYMPHOCYTES # (AUTO) 1.7 X 10^3 (1.0-4.0); LYMPHOCYTES % (AUTO) 14 % (12-44); MEAN CORPUSCULAR HEMOGLOBIN 28 PG (25-34); MEAN CORPUSCULAR HGB CONC 34 G/DL (32-36); MEAN CORPUSCULAR VOLUME 83 FL (80-99); MEAN PLATELET VOLUME 12.2 FL (7.4-10.4); MONOCYTES % (AUTO) 8 % (0-12); NEUTROPHILS # (AUTO) 9.8 X 10^3 (1.8-7.8); NEUTROPHILS % (AUTO) 76 % (42-75); PLATELET COUNT 213 10^3/uL (130-400); RED BLOOD COUNT 4.62 10^6/uL (4.35-5.85); RED CELL DISTRIBUTION WIDTH 14.7 % (10.0-14.5); WHITE BLOOD COUNT 12.8 10^3/uL (4.3-11.0)
[2016-05-07 05:27] LABS: INR 1.1 (0.8-1.4); PROTHROMBIN TIME PATIENT 13.5 SEC (12.2-14.7)
[2016-05-07 05:38] LABS: ALANINE AMINOTRANSFERASE 14 U/L (0-55); ALBUMIN 3.6 G/DL (3.2-4.5); ANION GAP 14 MMOL/L (5-14); ASPARTATE AMINO TRANSFERASE 11 U/L (5-34); BILIRUBIN,TOTAL 0.4 MG/DL (0.1-1.0); BLOOD UREA NITROGEN 7 MG/DL (7-18); BUN/CREATININE RATIO 11; CALCIUM 8.8 MG/DL (8.5-10.1); CARBON DIOXIDE 21 MMOL/L (21-32); CHLORIDE 106 MMOL/L (98-107); CREATININE SERUM 0.63 MG/DL (0.60-1.30); GFR ESTIMATED > 60; GLUCOSE 153 MG/DL (70-105); MAGNESIUM 1.7 MG/DL (1.8-2.4); PHOSPHORUS 3.7 MG/DL (2.3-4.7); POTASSIUM 3.5 MMOL/L (3.6-5.0); SODIUM 141 MMOL/L (135-145); TOTAL PROTEIN 6.8 G/DL (6.4-8.2)
[2016-05-07] MEDS: KCL 20 MEQ TAB (K-DUR) PO SCH (06:00)
[2016-05-07] MEDS: MAGNESIUM 1 GM/100 ML IVPB 100 ML IV SCH (06:00)
[2016-05-07] MEDS: POTASSIUM CL 10MEQ/50ML IVPB 50 ML IV SCH (06:00)
[2016-05-07] MEDS: PIOGLITAZONE 30MG (ACTOS) TAB PO SCH ×2 (06:09→16:25)
[2016-05-07] MEDS: metFORMIN 850 MG (GLUCOPHAGE) TAB PO SCH ×2 (06:09→16:25)
[2016-05-07] MEDS: sitaGLIPtin 50 MG (JANUVIA) TAB PO SCH (06:10)
--- NOTE | 2016-05-07 07:05 | Progress Note-Urology ---
Progress Note-Urology Progress Notes/Assess & Plan Progress/Assessment & Plan cysto tomorrow bedside, local Final Diagnosis urine retention BECCA EVANS MD May 07, 2016 07:05
[2016-05-07] MEDS: RT-ALBUTEROL/IPRATROPIUM 3 ML (DUONEB) VIAL INH SCH ×3 (07:15→22:43)
[2016-05-07 08:00] VITALS: BP 143/63
[2016-05-07] MEDS: FLUCONAZOLE 100 MG/50 ML 50 ML IV SCH (08:05)
[2016-05-07] MEDS: PANTOPRAZOLE 40 MG (PROTONIX) TAB PO SCH ×2 (08:06→21:36)
[2016-05-07] MEDS: NS IV 1000 ML 1,000 ML IV SCH (08:06)
[2016-05-07] MEDS: BACLOFEN 10 MG (LIORESAL) TAB PO SCH ×3 (08:06→21:37)
--- NOTE | 2016-05-07 08:51 | Progress Note (SOAP) ---
Subjective Subjective/Events-last exam Fwup UTI with Sepsis, hypotension, early pneumonia, diabetes mellitus type II, COPD, tobacco abuse. Some congestion in the morning but otherwise feeling good. No further sweats. Objective Exam Vital Signs Date Time Temp Pulse Resp B/P Pulse Ox O2 Delivery O2 Flow Rate FiO2 05/07/16 07:15 94 Room Air 05/07/16 00:00 98.7 80 20 129/71 93 Room Air 05/06/16 20:20 94 Room Air 05/06/16 20:05 Room Air 05/06/16 16:00 97.2 86 20 95/61 94 Room Air 05/06/16 15:19 93 Room Air I & O 05/07/16 07:00 Intake Total 3770 ml Output Total 3550 ml Balance 220 ml Capillary Refill : General Appearance: No Apparent Distress Neck: Supple Respiratory: Lungs Clear Decreased Breath Sounds Cardiovascular: Regular Rate, Rhythm Systolic Murmur Gallop/S3 Gastrointestinal: normal bowel sounds non tender soft Extremity: Non Tender No Calf Tenderness No Pedal Edema Neurologic/Psychiatric: Alert Oriented x3 Results Lab Laboratory Tests 05/06/16 11:08: Glucometer 139H 05/06/16 15:38: Glucometer 194H 05/06/16 20:15: Glucometer 126H 05/07/16 04:40: Activated Partial Thromboplast Time 31, Alanine Aminotransferase (ALT/SGPT) 14, Albumin 3.6, Alkaline Phosphatase 68, Anion Gap 14, Aspartate Amino Transf (AST/ SGOT) 11, BUN/Creatinine Ratio 11, Basophils # (Auto) 0.1, Basophils (%) (Auto) 0, Blood Urea Nitrogen 7, Calcium Level 8.8, Carbon Dioxide Level 21, Chloride Level 106, Creatinine 0.63, Eosinophils # (Auto) 0.2, Eosinophils (%) (Auto) 2, Estimat Glomerular Filtration Rate > 60, Glucose Level 153H, Hematocrit 38L, Hemoglobin 12.9L, INR Comment 1.1, Lymphocytes # (Auto) 1.7, Lymphocytes (%) ( Auto) 14, Magnesium Level 1.7L, Mean Corpuscular Hemoglobin 28, Mean Corpuscular Hemoglobin Concent 34, Mean Corpuscular Volume 83, Mean Platelet Volume 12.2H, Monocytes # (Auto) 1.0, Monocytes (%) (Auto) 8, Neutrophils # ( Auto) 9.8H, Neutrophils (%) (Auto) 76H, Phosphorus Level 3.7, Platelet Count 213 , Potassium Level 3.5L, Prothrombin Time 13.5, Red Blood Count 4.62, Red Cell Distribution Width 14.7H, Sodium Level 141, Total Bilirubin 0.4, Total Protein 6.8, White Blood Count 12.8H Microbiology 05/02/16 Blood Culture - Preliminary, Resulted No growth 05/02/16 Gram Stain - Final, Complete 05/02/16 Sputum Culture - Final, Complete Usual/normal walter isolated. 05/02/16 Urine Culture - Final, Complete Escherichia Coli Staph, Coag Neg ([facility]) Yeast Species Assessment/Plan Assessment/Plan Assess & Plan/Chief Complaint 1. UTI with Sepsis--growing out E. coli--hx of pseudomonas--continue merrem, repeat UA due to elevating WBC count 2. Early Pneumonia--improving clinically, will check 2 view CXR 3. Hypotension--improved 4. Diabetes mellitus--continue SSI 5. COPD--stable 6. Paraplegic with neurogenic bladder--urology consulted to discuss possible catheter change Diagnosis/Problems: Clinical Quality Measures DVT/VTE Risk/Contraindication: Risk Factor Score Per Nursin RFS Level Per Nursing on Admit: 4+=Very High CHELA PISANO DO May 07, 2016 08:51
--- NOTE | 2016-05-07 10:04 | Physical Therapy Daily Note ---
PT Daily Note-Current Subjective Patient agrees to ROM bilateral LE Pain Numeric Pain Scale: 0-No Pain Location: No Pain Reported Mental Status Patient Orientation: Normal For Age Attachments: IV Transfers Functional [place] Measure 0=Not Assessed/NA 4=Minimal Assistance 1=Total Assistance 5=Supervision or Setup 2=Maximal Assistance 6=Modified [place] 3=Moderate Assistance 7=Complete IndependenceIRFPAI Quality Coding Scale 6 Independent with activity with or without an assistive device 5 Patient requires set up or clean up by helper. Patient completes activity by themselves 4 Supervision or touching assist (CGA). [place] provide cues , steadying assist 3 The helper provides less than half the effort to complete the activity 2 The helper provides more than half the effort to complete the activity 1 Dependent. The helper does all the effort to complete an activity 7 Patient refused to complete or attempt activity 9 The patient did not perform the activity before the current illness or injury 88 Not attempted due to Medical conditions or safety concerns Transfers (B, C, W/C) (FIM): 1 Scootin Exercises Supine Ex: Ankle pumps, Heel Slides, Straight leg raise, Hip abd/add in supine x 15 min all planes Assessment Patient tolerated treatment and will dismiss to home this week. PT Short Term Goals Short Term Goals Time Frame: May 09, 2016 PT Plan Treatment/Plan Treatment Plan: Continue Plan of Care Treatment Plan: Bed Mobility, Education, Functional Activity Yvonne, Other (ROM) , Therapeutic Exercise Treatment Duration: May 09, 2016 Visits Per Week: 5 Time/GCodes Time In: 915 Time Out: 930 Total Billed Treatment Time: 15 Total Billed Treatment 1 visit EX 15 min ERMELINDA ASCENCIO PT May 07, 2016 10:04
--- NOTE | 2016-05-07 10:19 | Diagnostic Imaging Report ---
CLINICAL INDICATION: Patient with congestion and cough. Patient admitted for UTI. EXAM: Chest x-ray, PA and lateral views. COMPARISON: Chest x-ray dated 05/04/2016. FINDINGS: LUNGS/PLEURA: Again seen is left basilar atelectasis versus infiltrate. There is no pleural effusion. The remaining lungs are clear. There is no pleural effusion. MEDIASTINUM: Unremarkable. PULMONARY VASCULATURE: Unremarkable. HEART: Unremarkable. BONES/EXTRATHORACIC SOFT TISSUE: There are degenerative spurs seen throughout the spine. IMPRESSION: Stable chest x-ray exam with mild left basilar atelectasis versus infiltrate. Dictated by: Dictated on workstation # [id number]
[2016-05-07 11:45] VITALS: BP 100/50
[2016-05-07 12:00] VITALS: BP 90/63
[2016-05-07 12:03] LABS: BILIRUBIN,URINE NEGATIVE (NEGATIVE); KETONES,URINE NEGATIVE (NEGATIVE); LEUKOCYTE ESTERASE ,URINE 3+ (NEGATIVE); NITRITE,URINE NEGATIVE (NEGATIVE); PH,URINE 7 (5-9); PROTEIN,URINE NEGATIVE (NEGATIVE); UROBILINOGEN,URINE NORMAL (NORMAL)
[2016-05-07] MEDS: ACETAMINOPHEN 325 MG TABLET/CAPLET (TYLENOL) PO PRN (12:37)
[2016-05-07] MEDS: ALPRAZolam 0.5 MG (XANAX) TAB PO PRN (14:58)
[2016-05-07 15:56] VITALS: BP 86/56
[2016-05-07 16:00] VITALS: BP 96/62
[2016-05-07] MEDS: LACTOBACILLUS Acidoph/Bulgar (LACTINEX/FLORANEX) TAB PO SCH (21:36)
[2016-05-07] MEDS: DOCUSATE SODIUM 100 MG (COLACE) CAP PO SCH (21:36)
[2016-05-08] VITALS: BP 120/81
[2016-05-08] MEDS: MEROPENEM 500 MG in NORMAL SALINE (BAXTER MINI) 100 ML IV SCH (03:05)
[2016-05-08] MEDS: POTASSIUM CL 10MEQ/50ML IVPB 50 ML IV SCH (06:00)
[2016-05-08] MEDS: KCL 20 MEQ TAB (K-DUR) PO SCH (06:00)
[2016-05-08] MEDS: MAGNESIUM 1 GM/100 ML IVPB 100 ML IV SCH (06:00)
[2016-05-08 06:03] LABS: BASOPHILS # (AUTO) 0.1 10^3/uL (0.0-0.1); BASOPHILS % (AUTO) 1 % (0-10); EOSINOPHILS # (AUTO) 0.3 10^3/uL (0.0-0.3); EOSINOPHILS % (AUTO) 3 % (0-10); LYMPHOCYTES # (AUTO) 1.8 X 10^3 (1.0-4.0); LYMPHOCYTES % (AUTO) 16 % (12-44); MEAN CORPUSCULAR HEMOGLOBIN 28 PG (25-34); MEAN CORPUSCULAR HGB CONC 33 G/DL (32-36); MEAN CORPUSCULAR VOLUME 83 FL (80-99); MEAN PLATELET VOLUME 12.5 FL (7.4-10.4); MONOCYTES # (AUTO) 0.8 X 10^3 (0.0-1.0); MONOCYTES % (AUTO) 8 % (0-12); NEUTROPHILS # (AUTO) 7.9 X 10^3 (1.8-7.8); NEUTROPHILS % (AUTO) 73 % (42-75); PLATELET COUNT 233 10^3/uL (130-400); RED BLOOD COUNT 4.87 10^6/uL (4.35-5.85); RED CELL DISTRIBUTION WIDTH 14.7 % (10.0-14.5); WHITE BLOOD COUNT 10.8 10^3/uL (4.3-11.0)
[2016-05-08] MEDS: sitaGLIPtin 50 MG (JANUVIA) TAB PO SCH (06:06)
[2016-05-08] MEDS: PIOGLITAZONE 30MG (ACTOS) TAB PO SCH (06:06)
[2016-05-08] MEDS: metFORMIN 850 MG (GLUCOPHAGE) TAB PO SCH (06:06)
[2016-05-08 06:16] LABS: INR 1.1 (0.8-1.4); PROTHROMBIN TIME PATIENT 13.4 SEC (12.2-14.7)
[2016-05-08 06:24] LABS: ALANINE AMINOTRANSFERASE 15 U/L (0-55); ANION GAP 13 MMOL/L (5-14); ASPARTATE AMINO TRANSFERASE 16 U/L (5-34); BILIRUBIN,TOTAL 0.4 MG/DL (0.1-1.0); BLOOD UREA NITROGEN 9 MG/DL (7-18); BUN/CREATININE RATIO 13; CALCIUM 9.3 MG/DL (8.5-10.1); CARBON DIOXIDE 22 MMOL/L (21-32); CHLORIDE 106 MMOL/L (98-107); GFR ESTIMATED > 60; GLUCOSE 153 MG/DL (70-105); MAGNESIUM 1.9 MG/DL (1.8-2.4); PHOSPHORUS 3.4 MG/DL (2.3-4.7); POTASSIUM 3.8 MMOL/L (3.6-5.0); SODIUM 141 MMOL/L (135-145); TOTAL PROTEIN 7.9 G/DL (6.4-8.2)
--- NOTE | 2016-05-08 07:12 | Progress Note-Post Operative ---
Post-Operative Progess Note Pre-Operative Diagnosis urine retention Post-Operative Diagnosis same Post-Op Procedure Note Date of Procedure: May 08, 2016 Name of Procedure: cysto Anesthesia Type local BECCA EVANS MD May 08, 2016 07:12
--- NOTE | 2016-05-08 07:12 | Progress Note-Pre Operative ---
Pre-Operative Progress Note H&P Reviewed The H&P was reviewed, patient examined and no changes noted. Date H&P Reviewed: May 08, 2016 Time H&P Reviewed: 07:12 Pre-Operative Diagnosis: urine retention BECCA EVANS MD May 08, 2016 07:12
[2016-05-08] MEDS ORDERED: LIDOCAINE UROJET 2% GEL 10 ML PKG ONE (07:16)
[2016-05-08 08:00] VITALS: BP 170/87
[2016-05-08] MEDS: RT-ALBUTEROL/IPRATROPIUM 3 ML (DUONEB) VIAL INH SCH (08:02)
[2016-05-08] MEDS: BACLOFEN 10 MG (LIORESAL) TAB PO SCH (08:43)
[2016-05-08] MEDS: PANTOPRAZOLE 40 MG (PROTONIX) TAB PO SCH (08:43)
--- NOTE | 2016-05-08 09:33 | Progress Note-Post Operative ---
Post-Operative Progess Note Pre-Operative Diagnosis urine retention Post-Operative Diagnosis same Post-Op Procedure Note Name of Procedure: cysto Anesthesia Type local CRISTINABECCA Chin MD May 08, 2016 09:33
[2016-05-08] MEDS ORDERED: NITR-65 PO (09:36)
--- NOTE | 2016-05-08 09:48 | Discharge Inst-Simple/Standard ---
Discharge Inst-Standard Discharge Medications New, Converted or Re-Newed RX: Transmitted to Pharmacy Patient Instructions/Follow Up Plan of Care/Instructions/FU: Fwup 2 weeks Activity as Tolerated: Yes Discharge Diet: ADA Diet, Cardiac Diet CHELA PISANO DO May 08, 2016 9:48 am
[2016-05-08 11:39] VITALS: BP 170/87
--- NOTE | 2016-05-08 13:40 | OPERATIVE REPORT ---
PROCEDURE PHYSICIAN: BECCA EVANS DATE OF PROCEDURE: 05/08/2016 PREOPERATIVE DIAGNOSIS: Urinary retention and neurogenic bladder. POSTOPERATIVE DIAGNOSIS: Urinary retention and neurogenic bladder. OPERATION: Cystoscopy. SURGEON: Dereck. ANESTHESIA: Local. COMPLICATIONS: None. PROCEDURE: With the patient supine in his bed, after removing the Sánchez catheter, the genitalia were prepped and draped in usual sterile fashion. The lidocaine jelly was applied. A penile clamp as well and this was then removed. Flexible cystoscopy introduced under vision. The anterior urethra was normal. Just distal to the Veru and the sphincter there was a false passage which seems to be healing or healed. The prostate was nonobstructing. The bladder neck was opened. The bladder revealed trabeculation, catheter cystitis. No foreign body, bladder tumor or stone visualized. Ureteric orifice is normal with clear effluxes. Cystoscopy was confirmed in antegrade fashion and the cystoscope was removed. Rectal exam revealed a flat, benign, nontender, elastic prostate. PLAN: Options were discussed with the patient: 1. Resume [place] catheter. Continue the vitamin C and cranberry tablet and put him on Macrodantin 100 mg at bedtime for now with supper until I see him back in the office in 4 weeks. 2. Suprapubic cystostomy tube which by itself could invite infection but could be another alternative. 3. Indwelling Sánchez catheter would be the worst situation. The patient elected to have option one, which I agreed with him so we will repeat the [place] catheter. Nurse will call a Macrodantin prescriptions to the pharmacy and get him an appointment in 4 weeks with me. Job ID: [id number] Dictated Date: 05/08/2016 09:30:34 [employer] Drm Consultant Date: 05/08/2016 13:32:35 / jose c
--- NOTE | 2016-05-31 20:05 | Discharge Summary ---
Diagnosis/Chief Complaint Date of Admission May 02, 2016 at 14:27 Date of Discharge May 08, 2016 at 11:39 Discharge Date: May 08, 2016 Admission Diagnosis Admission Diagnosis 1. Acute UTI with Sepsis--admit to ICU and start sepsis protocol with IV rocephin, will also cover with diflucan as patient has a history of fungal septicemia in past as well 2. Hypotension--aggressive hydration and monitor 3. Diabetes mellitus--start ICU sliding scale 4. COPD--MAT protocol 5. Tobacco Abuse--chronic 6. Paraplegic with neurogenic bladder and recurrent infections--consult urology Discharge Diagnosis 1. UTI with Sepsis--growing out E. coli, Coag neg Staph and Yeast 2. Early Pneumonia 3. Hypotension 4. Diabetes mellitus 5. COPD 6. Paraplegic with neurogenic bladder Reason Hospital Visit This is a 50 year old male who is paraplegic with neurogenic bladder with chronic you catheter and a history of recurrent UTIs who presented to my office with sudden onset of gross hematuria with accompanying chills and diaphoresis. He was hypotensive in my office with faint pulses. He has a history of UTI with sepsis so it was decided to directly admit him for evaluation. Discharge Summary Hospital Course Hospital Course This is a 50 year old male who is paraplegic with neurogenic bladder with chronic you catheter and a history of recurrent UTIs who presented to my office with sudden onset of gross hematuria with accompanying chills and diaphoresis. He was hypotensive in my office with faint pulses. He has a history of UTI with sepsis so it was decided to directly admit him for evaluation. He was initially admitted to the ICU on sepsis protocol. He was initially given IV rocephin and fluconazole due to a history of yeast with IV antibiotics. However, due to a history of pseudomonas, his antibiotic was switched to meropenem. He did require a short time on a norepinephrine drip due to ongoing hypotension but this quickly resolved and his blood pressure stabilized with aggessive IVFs. His urine culture came back growing out E. coli , Coag neg Staph and yeast species so it was decided he should be continued on meropenem with diflucan for a full seven days. His blood cultures were negative. Once his blood pressure stabilized, he was transferred to the medical floor. Dr. Harden was consulted and the patient did undergo a cystoscopy on 05/08/16. His blood sugars were stable during his hospital stay. By the time of discharge, he was feeling much improved and it was decided he could go home on prophylactic macrobid per urology recommendaitons and followup with me in 1 week and urology in 2 weeks. Procedures Cystoscope Consultations Dr. Harden Discharge Physical Examination Allergies: Coded Allergies: Povidone-Iodine (Verified Allergy, Unknown, 05/25/08) Soap (Verified Allergy, Unknown, 05/25/08) General Appearance: Alert, Oriented X3, Cooperative, No Acute Distress Respiratory: Clear to Auscultation Cardiovascular: Regular Rate Abdominal: Normal Bowel Sounds, Soft, No Tenderness Neuro: Other (paraplegia) Psych/Mental Status: Mental Status NL, Mood NL Discharge Home Medications Reviewed and agree with Discharge Medication list on patient's Discharge Instruction sheet Instructions to Patient/Family Please see electonic discharge instructions given to patient. Clinical Quality Measures DVT/VTE Risk/Contraindication: Risk Factor Score Per Nursin RFS Level Per Nursing on Admit: 4+=Very High CHELA PISANO DO May 31, 2016 20:05
== END 2016-05-08 11:39 | disposition home or self-care (01) | DRG 871 ==
LOC: ICU 14:27 → 4TH 05-04 17:35
PROVIDERS: ADMIT Family Medicine; ATTEND Family Medicine
PROC: 0TJD8ZZ Inspection of Urethra, Via Natural or Artificial Opening Endoscopic (ICD-10-PCS; 2016-05-08)
PROC: 0TJB8ZZ Inspection of Bladder, Via Natural or Artificial Opening Endoscopic (ICD-10-PCS; principal; 2016-05-08 08:44)
DX: A41.51 Sepsis due to Escherichia coli [E. coli] (principal); N39.0 Urinary tract infection, site not specified; J44.0 Chronic obstructive pulmonary disease with (acute) lower respiratory infection; J18.9 Pneumonia, unspecified organism; G82.20 Paraplegia, unspecified; I95.9 Hypotension, unspecified; E11.9 Type 2 diabetes mellitus without complications; F17.210 Nicotine dependence, cigarettes, uncomplicated; N31.9 Neuromuscular dysfunction of bladder, unspecified; R33.9 Retention of urine, unspecified; K59.09 Other constipation
CPT/HCPCS: 36415; 71010; 71020; 80048; 80053; 81000; 82962; 83605; 83735; 84100; 85007; 85025; 85027; 85610; 85730; 87040; 87070; 87077; 87088; 87186; 87205; 94640; 94760

== ENCOUNTER → 2016-11-07 | Outpatient (CLI) | payer MEDICAID ==
[~2016-11-07] MED LIST changes: +ALPR0.5T7 PO; +ASCO-262 PO; +BISA10SU6 RC; +CIPR250T3 PO; +CRAN1CAP7 PO; +DOCU100C37 PO; +LACT1CAP61 PO; +LANS30CA PO; +NITR-65 PO; +PIOG1TAB34 PO; +SITA100T12 PO
[2016-11-07 11:48] LABS: BASOPHILS # (AUTO) 0.1 10^3/uL (0.0-0.1); BASOPHILS % (AUTO) 1 % (0-10); EOSINOPHILS # (AUTO) 0.3 10^3/uL (0.0-0.3); EOSINOPHILS % (AUTO) 3 % (0-10); LYMPHOCYTES # (AUTO) 1.4 X 10^3 (1.0-4.0); LYMPHOCYTES % (AUTO) 13 % (12-44); MEAN CORPUSCULAR HEMOGLOBIN 27 PG (25-34); MEAN CORPUSCULAR HGB CONC 33 G/DL (32-36); MEAN CORPUSCULAR VOLUME 81 FL (80-99); MEAN PLATELET VOLUME 12.8 FL (7.4-10.4); MONOCYTES # (AUTO) 0.8 X 10^3 (0.0-1.0); MONOCYTES % (AUTO) 8 % (0-12); NEUTROPHILS # (AUTO) 8.3 X 10^3 (1.8-7.8); NEUTROPHILS % (AUTO) 76 % (42-75); PLATELET COUNT 182 10^3/uL (130-400); RED BLOOD COUNT 5.75 10^6/uL (4.35-5.85); RED CELL DISTRIBUTION WIDTH 16.5 % (10.0-14.5)
[2016-11-07 12:05] LABS: ALANINE AMINOTRANSFERASE 23 U/L (0-55); ALBUMIN 4.2 GM/DL (3.2-4.5); ANION GAP 12 MMOL/L (5-14); ASPARTATE AMINO TRANSFERASE 15 U/L (5-34); BILIRUBIN,TOTAL 0.4 MG/DL (0.1-1.0); BLOOD UREA NITROGEN 16 MG/DL (7-18); BUN/CREATININE RATIO 21; CALCIUM 9.7 MG/DL (8.5-10.1); CARBON DIOXIDE 22 MMOL/L (21-32); CHLORIDE 102 MMOL/L (98-107); CHOLESTEROL 169 MG/DL (< 200); CREATININE SERUM 0.78 MG/DL (0.60-1.30); DIRECT LDL 110 MG/DL (1-129); GFR ESTIMATED > 60; GLUCOSE 184 MG/DL (70-105); POTASSIUM 4.6 MMOL/L (3.6-5.0); SODIUM 136 MMOL/L (135-145); TOTAL PROTEIN 8.3 GM/DL (6.4-8.2); TRIGLYCERIDES 195 MG/DL (<150); VLDL CHOLESTEROL 39 MG/DL (5-40)
[2016-11-07 12:25] LABS: THYROID STIMULATING HORMONE 0.99 UIU/ML (0.35-4.94)
== END ==
LOC: LAB 11:11
PROVIDERS: ATTEND Family Medicine
DX: E11.9 Type 2 diabetes mellitus without complications (principal); E78.2 Mixed hyperlipidemia
CPT/HCPCS: 36415; 80053; 80061; 83036; 84443; 85025

== ENCOUNTER 2018-07-12 08:13 | Inpatient (IN) | payer MEDICAID ==
[~2018-07-12] VITALS: Ht 182.9 cm; Wt 86.3 kg
[2018-07-12] VITALS (11 sets, daily range): BP systolic 75–118; BP diastolic 38–79
[~2018-07-12 08:13] MED LIST changes: +PIOG1TAB18 PO; -PIOG1TAB34 PO
[2018-07-12 08:47] LABS: BASOPHILS % (AUTO) 0 % (0-10); EOSINOPHILS % (AUTO) 0 % (0-10); HEMATOCRIT 38 % (40-54); HEMOGLOBIN 12.7 G/DL (13.3-17.7); LYMPHOCYTES # (AUTO) 0.7 X 10^3 (1.0-4.0); LYMPHOCYTES % (AUTO) 3 % (12-44); MEAN CORPUSCULAR HEMOGLOBIN 27 PG (25-34); MEAN CORPUSCULAR HGB CONC 33 G/DL (32-36); MEAN CORPUSCULAR VOLUME 80 FL (80-99); MEAN PLATELET VOLUME 11.8 FL (7.4-10.4); MONOCYTES # (AUTO) 1.1 X 10^3 (0.0-1.0); MONOCYTES % (AUTO) 5 % (0-12); NEUTROPHILS # (AUTO) 19.3 X 10^3 (1.8-7.8); NEUTROPHILS % (AUTO) 91 % (42-75); PLATELET COUNT 224 10^3/uL (130-400); WHITE BLOOD COUNT 21.1 10^3/uL (4.3-11.0)
[2018-07-12 08:56] LABS: INR 1.1 (0.8-1.4)
[2018-07-12 09:03] LABS: ALANINE AMINOTRANSFERASE 22 U/L (0-55); ALKALINE PHOSPHATASE 59 U/L (40-136); BILIRUBIN,TOTAL 0.6 MG/DL (0.1-1.0); BUN/CREATININE RATIO 21; CALCIUM 9.1 MG/DL (8.5-10.1); CARBON DIOXIDE 18 MMOL/L (21-32); CHLORIDE 103 MMOL/L (98-107); CREATININE SERUM 0.81 MG/DL (0.60-1.30); GFR ESTIMATED > 60; GLUCOSE 209 MG/DL (70-105); POTASSIUM 4.1 MMOL/L (3.6-5.0); SODIUM 135 MMOL/L (135-145); TOTAL PROTEIN 7.2 GM/DL (6.4-8.2)
[2018-07-12 09:08] LABS: BILIRUBIN,URINE NEGATIVE (NEGATIVE); CLARITY,URINE VERY CLOUDY; COLOR,URINE YELLOW; GLUCOSE, URINE (UA) 2+ (NEGATIVE); KETONES,URINE NEGATIVE (NEGATIVE); LEUKOCYTE ESTERASE ,URINE 3+ (NEGATIVE); NITRITE,URINE NEGATIVE (NEGATIVE); PH,URINE 6 (5-9); PROTEIN,URINE 3+ (NEGATIVE); UROBILINOGEN,URINE NORMAL (NORMAL)
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
[2018-07-12 09:18] LABS: BACTERIA,URINE NEGATIVE /HPF; RBC,URINE TNTC /HPF; WBC,URINE TNTC /HPF
[2018-07-12 09:26] LABS: ANISOCYTOSIS SLIGHT; BAND NEUTROPHILS 3 %; BASOPHILS % (MANUAL) 0 %; EOSINOPHILS % (MANUAL) 0 %; LYMPHOCYTES % (MANUAL) 5 %; MONOCYTES % (MANUAL) 4 %; NEUTROPHILS % (MANUAL) 88 %
[2018-07-12] MEDS ORDERED: MEROPENEM 1,000 MG in WATER (STERILE) FOR INJECTION 20 ML IV ONE (09:45)
--- NOTE | 2018-07-12 10:00 | NUR ---
Pt's low blood pressure at this time is due to pt having arm contracted. Cuff and arm repositioned and BP retaken.
--- NOTE | 2018-07-12 10:25 | NUR ---
Pt's temperature 100.[address] Murcia notified.
[2018-07-12] MEDS ORDERED: NS IV 1000 ML 1,000 ML ONE (10:31)
[2018-07-12] MEDS ORDERED: ACETAMINOPHEN 500 MG TAB (TYLENOL) ONE (10:45)
--- NOTE | 2018-07-12 11:00 | NUR ---
pt's bp 76/51 due to contracture of arm. arm and cuff repositioned.
--- NOTE | 2018-07-12 11:42 | NUR ---
pharmacy called for med rec. message left
[2018-07-12] MEDS ORDERED: VANCOMYCIN 1,750 MG/NS 500 ML IVPB IV NR ×2 (12:00)
[2018-07-12] MEDS: NS IV 1000 ML 1,000 ML IV SCH ×2 (12:28→20:47)
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
[2018-07-12] MEDS ORDERED: ONDANSETRON 4 MG (ZOFRAN) ORAL DISSOLVE TAB PO PRN (13:00)
[2018-07-12] MEDS ORDERED: LOPERAMIDE 2 MG (IMODIUM) CAP PO PRN (13:00)
[2018-07-12] MEDS ORDERED: ONDANSETRON 4 MG/2 ML (SDV) Z0FRAN IVP PRN (13:00)
[2018-07-12] MEDS ORDERED: ALPRAZolam 0.25 MG (XANAX) TAB PO PRN (13:00)
[2018-07-12] MEDS ORDERED: CALCIUM CARBONATE 500 MG (TUMS) TAB.CHEW PO PRN (13:00)
[2018-07-12] MEDS ORDERED: fentaNYL INJECTION 100 MCG/2 ML AMP IVP PRN (13:00)
[2018-07-12] MEDS ORDERED: ACETAMINOPHEN 500 MG TAB (TYLENOL) PO PRN (13:00)
[2018-07-12] MEDS ORDERED: DOCUSATE SODIUM 100 MG (COLACE) CAP PO PRN (13:00)
[2018-07-12] MEDS ORDERED: diphenhydrAMINE 25 MG TAB (BENADRYL) PO PRN (13:00)
[2018-07-12] MEDS ORDERED: MELATONIN 3 MG TABLET PO PRN (13:00)
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
[2018-07-12] MEDS: MEROPENEM 500 MG/SWFI 10 ML IV PUSH IV SCH ×4 (18:11→23:53)
[2018-07-12] MEDS: POLYETHYLENE GLYCOL 17 GM (MIRALAX) PACK PO SCH (20:29)
[2018-07-12] MEDS: DIAZEPAM 2 MG (VALIUM) TAB PO PRN (20:47)
[2018-07-12] MEDS: VANCOMYCIN 1250 MG/NS 250 ML IVPB IV SCH ×2 (23:53)
[2018-07-12] MEDS: ACETAMINOPHEN 325 MG TABLET PO PRN (23:53)
[2018-07-13] VITALS (15 sets, daily range): BP systolic 82–138; BP diastolic 51–111
[2018-07-13 03:31] LABS: BASOPHILS % (AUTO) 0 % (0-10); EOSINOPHILS % (AUTO) 0 % (0-10); HEMATOCRIT 34 % (40-54); HEMOGLOBIN 11.3 G/DL (13.3-17.7); LYMPHOCYTES # (AUTO) 1.2 X 10^3 (1.0-4.0); LYMPHOCYTES % (AUTO) 7 % (12-44); MEAN CORPUSCULAR HEMOGLOBIN 27 PG (25-34); MEAN CORPUSCULAR HGB CONC 33 G/DL (32-36); MEAN CORPUSCULAR VOLUME 81 FL (80-99); MEAN PLATELET VOLUME 12.1 FL (7.4-10.4); MONOCYTES # (AUTO) 1.1 X 10^3 (0.0-1.0); MONOCYTES % (AUTO) 6 % (0-12); NEUTROPHILS # (AUTO) 15.1 X 10^3 (1.8-7.8); NEUTROPHILS % (AUTO) 87 % (42-75); PLATELET COUNT 186 10^3/uL (130-400); RED CELL DISTRIBUTION WIDTH 15.6 % (10.0-14.5); WHITE BLOOD COUNT 17.5 10^3/uL (4.3-11.0)
[2018-07-13 03:46] LABS: BUN/CREATININE RATIO 13; CALCIUM 8.6 MG/DL (8.5-10.1); CARBON DIOXIDE 18 MMOL/L (21-32); CHLORIDE 107 MMOL/L (98-107); CREATININE SERUM 0.79 MG/DL (0.60-1.30); GFR ESTIMATED > 60; GLUCOSE 227 MG/DL (70-105); MAGNESIUM 1.4 MG/DL (1.8-2.4); PHOSPHORUS 2.7 MG/DL (2.3-4.7); POTASSIUM 3.8 MMOL/L (3.6-5.0); SODIUM 136 MMOL/L (135-145)
--- NOTE | 2018-07-13 04:40 | Pulmonary Progress Note ---
Subjective Time Seen by a Provider: 04:40 Subjective/Events-last exam Pt has had hypotension through the night and fevers. Sepsis Event Evaluation Height, Weight, BMI Height: 6'0" Weight: 184lbs. 9.0oz. 83.622712ng; 24.7 BMI Method:Stated Focused Exam Lactate Level 07/12/18 08:30: Lactic Acid Level 4.02*H 07/12/18 10:30: Lactic Acid Level 3.50*H 07/13/18 03:19: Lactic Acid Level 1.83 Lactic Acid Level Laboratory Tests Test 07/13/18 03:19 Lactic Acid Level 1.83 MMOL/L (0.50-2.00) Exam Exam Vital Signs Date Time Temp Pulse Resp B/P (MAP) Pulse Ox O2 Delivery O2 Flow Rate FiO2 07/13/18 04:00 66 18 99/63 (75) 94 NIV CPAP 07/13/18 03:24 98.6 07/13/18 03:00 76 17 90/59 (69) 95 NIV CPAP 07/13/18 02:00 82 15 94/63 (73) 96 NIV CPAP 07/13/18 01:00 81 18 82/51 (61) 95 NIV CPAP 07/13/18 01:00 81 07/13/18 00:41 101.0 07/13/18 00:41 101.0 07/13/18 00:00 NIV CPAP 07/13/18 00:00 86 18 98/60 (73) 93 NIV CPAP 07/12/18 23:53 101.4 07/12/18 23:52 101.4 07/12/18 23:00 78 18 95/61 (72) 94 NIV CPAP 07/12/18 22:05 NIV CPAP 07/12/18 22:00 77 16 86/70 (75) 92 Room Air 07/12/18 21:00 74 15 79/39 (52) 94 Room Air 07/12/18 20:00 Room Air 07/12/18 20:00 99.7 07/12/18 20:00 93 96/77 (83) 95 Room Air 07/12/18 19:00 90 07/12/18 19:00 95 118/66 (83) 96 Room Air 07/12/18 18:00 82 21 113/79 (90) 96 Room Air 3/16/19 17:00 85 19 100/67 (78) 96 Room Air 07/12/18 16:00 89 15 78/55 (63) 95 Room Air 07/12/18 15:15 88/50 (63) 07/12/18 15:00 95 6 95 Room Air 07/12/18 14:00 80 14 103/38 (59) 94 Room Air 07/12/18 13:00 97 28 103/38 (59) 97 Room Air 07/12/18 12:45 90 07/12/18 11:15 100.9 74 18 95/61 (72) 96 Room Air 07/12/18 08:15 101.1 97 18 142/100 (114) 96 Room Air I & O 07/13/18 07:00 Intake Total 3110.0 ml Output Total 2575 ml Balance 535.0 ml Height & Weight Height: 6'0" Weight: 184lbs. 9.0oz. 83.500147of; 24.7 BMI Method:Stated General Appearance: WD/WN, Chronically ill, Mild Distress HEENT: PERRL/EOMI, Normal ENT Inspection, Pharynx Normal, Moist Mucous Membranes Neck: Full Range of Motion, Normal Inspection, Non Tender Respiratory: Chest Non Tender, Lungs Clear, Normal Breath Sounds, No Accessory Muscle Use, No Respiratory Distress Cardiovascular: Regular Rate, Rhythm, No Edema, No Gallop, No JVD, No Murmur, Normal Peripheral Pulses Capillary Refill: Less Than 3 Seconds Gastrointestinal: other (obese, soft, no pain to palpation) Extremity: Normal Capillary Refill, Normal Inspection, Normal Range of Motion, Non Tender, No Calf Tenderness, No Pedal Edema Neurologic/Psychiatric: Alert, Oriented x3, No Motor/Sensory Deficits (except lower leg paralysis), Normal Mood/Affect Skin: Normal Color, Warm/Dry Lymphatic: No Adenopathy Results Lab Laboratory Tests 07/12/18 08:36 07/13/18 03:19 Assessment/Plan Assessment/Plan Severe sepsis secondary to UTI -Continue Merrem and Vanco -Aggressive IVF -Staples cultures -check influenza Metabolic lactic acidosis -IVF -Lactic acid improved Hypotension -IVF -Monitor Hypomagnesemia -Replace Paraplegia LIBIA MANRIQUE DO Jul 13, 2018 04:40
[2018-07-13] MEDS: MEROPENEM 500 MG/SWFI 10 ML IV PUSH IV SCH ×10 (05:48→23:41)
[2018-07-13] MEDS: NS IV 1000 ML 1,000 ML IV SCH ×3 (05:48→18:43)
--- NOTE | 2018-07-13 08:58 | Diagnostic Imaging Report ---
INDICATION: Shortness of breath. Portable chest 4:17 AM FINDINGS: Heart size and pulmonary vascularity are normal. Lungs are clear. There are no effusions or pneumothoraces. IMPRESSION: Negative chest. Dictated by: Dictated on workstation # [id number]
[2018-07-13] MEDS: POLYETHYLENE GLYCOL 17 GM (MIRALAX) PACK PO SCH ×2 (09:13→20:36)
--- NOTE | 2018-07-13 11:30 | NUR ---
Report received from TRAE Davis from ICU at 10:50. Patient arrived to unit at 11:30 via Bed to room 411, accompanied by TRAE Davis. Patient transferred to room bed x 3 assist. Care assumed at this time.
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
[2018-07-13] MEDS: VANCOMYCIN 1250 MG/NS 250 ML IVPB IV SCH ×4 (13:07→23:41)
[2018-07-13] MEDS: ACETAMINOPHEN 325 MG TABLET PO PRN ×2 (13:07→19:01)
[2018-07-13] MEDS: DIAZEPAM 2 MG (VALIUM) TAB PO PRN (23:41)
[2018-07-14] VITALS (7 sets, daily range): BP systolic 102–150; BP diastolic 50–84
[2018-07-14] MEDS: NS IV 1000 ML 1,000 ML IV SCH ×3 (03:42→21:29)
[2018-07-14] MEDS: MEROPENEM 500 MG/SWFI 10 ML IV PUSH IV SCH ×4 (05:07→11:50)
[2018-07-14 05:49] LABS: BASOPHILS # (AUTO) 0.1 10^3/uL (0.0-0.1); BASOPHILS % (AUTO) 1 % (0-10); EOSINOPHILS # (AUTO) 0.3 10^3/uL (0.0-0.3); EOSINOPHILS % (AUTO) 2 % (0-10); HEMATOCRIT 36 % (40-54); HEMOGLOBIN 11.9 G/DL (13.3-17.7); LYMPHOCYTES # (AUTO) 1.8 X 10^3 (1.0-4.0); LYMPHOCYTES % (AUTO) 14 % (12-44); MEAN CORPUSCULAR HEMOGLOBIN 27 PG (25-34); MEAN CORPUSCULAR HGB CONC 33 G/DL (32-36); MEAN CORPUSCULAR VOLUME 81 FL (80-99); MEAN PLATELET VOLUME 11.9 FL (7.4-10.4); MONOCYTES # (AUTO) 0.9 X 10^3 (0.0-1.0); MONOCYTES % (AUTO) 7 % (0-12); NEUTROPHILS # (AUTO) 9.6 X 10^3 (1.8-7.8); NEUTROPHILS % (AUTO) 76 % (42-75); PLATELET COUNT 199 10^3/uL (130-400); RED CELL DISTRIBUTION WIDTH 15.8 % (10.0-14.5); WHITE BLOOD COUNT 12.6 10^3/uL (4.3-11.0)
[2018-07-14 06:12] LABS: BUN/CREATININE RATIO 13; CALCIUM 8.9 MG/DL (8.5-10.1); CARBON DIOXIDE 18 MMOL/L (21-32); CHLORIDE 108 MMOL/L (98-107); CREATININE SERUM 0.71 MG/DL (0.60-1.30); GFR ESTIMATED > 60; GLUCOSE 188 MG/DL (70-105); MAGNESIUM 1.6 MG/DL (1.8-2.4); POTASSIUM 3.8 MMOL/L (3.6-5.0); SODIUM 138 MMOL/L (135-145)
[2018-07-14] MEDS ORDERED: ASPI-983 PO (08:52)
--- NOTE | 2018-07-14 08:54 | NUR ---
WENT OVER THE EXT MED HX WITH THE PATIENT AND HE VERIFIED HOW HE TAKES THEM, HE ALSO VERIFIED HIS OTC MEDS.
[2018-07-14] MEDS: POLYETHYLENE GLYCOL 17 GM (MIRALAX) PACK PO SCH ×2 (09:02→22:12)
[2018-07-14] MEDS ORDERED: TROUGH ORDER-PHARMACY XX NR (11:00)
[2018-07-14] MEDS: ACETAMINOPHEN 325 MG TABLET PO PRN (12:19)
[2018-07-14] MEDS: DIAZEPAM 2 MG (VALIUM) TAB PO PRN (12:24)
[2018-07-14] MEDS ORDERED: NON-FORMULARY MEDICATION 1 EA EA (Lansoprazole 30 MG) PO PRN (12:45)
[2018-07-14] MEDS ORDERED: PANTOPRAZOLE 40 MG (PROTONIX) TAB PO PRN (12:45)
[2018-07-14] MEDS ORDERED: NON-FORMULARY MEDICATION 1 EA EA (Baclofen 20 MG) PO SCH (13:00)
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
[2018-07-14] MEDS: BACLOFEN 10 MG (LIORESAL) TAB PO SCH ×2 (13:44→19:50)
--- NOTE | 2018-07-14 15:11 | Pulmonary Progress Note ---
Subjective Time Seen by a Provider: 15:10 Subjective/Events-last exam Pt is doing much better. Sepsis Event Evaluation Height, Weight, BMI Height: 6'0" Weight: 201lbs. 4.0oz. 91.954638as; 24.7 BMI Method:Stated Focused Exam Lactate Level 07/12/18 08:30: Lactic Acid Level 4.02*H 07/12/18 10:30: Lactic Acid Level 3.50*H 07/13/18 03:19: Lactic Acid Level 1.83 Exam Exam Vital Signs Date Time Temp Pulse Resp B/P (MAP) Pulse Ox O2 Delivery O2 Flow Rate FiO2 07/14/18 12:20 99.6 89 20 104/51 (68) 95 Room Air 07/14/18 09:00 Room Air 07/14/18 08:30 98.5 86 20 150/63 (92) 94 Room Air 07/14/18 03:40 99.5 87 16 140/66 (90) 96 Room Air 07/14/18 00:00 99.5 93 18 142/66 (91) 96 Room Air 07/13/18 21:35 99.5 07/13/18 20:33 Room Air 07/13/18 20:30 99.9 80 18 136/62 (86) 94 Room Air 07/13/18 19:01 100.4 07/13/18 16:10 99.7 88 20 113/70 (84) 94 Room Air I & O 07/14/18 07:00 Intake Total 2982.5 ml Output Total 4575 ml Balance -1592.5 ml Height & Weight Height: 6'0" Weight: 201lbs. 4.0oz. 91.113201na; 24.7 BMI Method:Stated General Appearance: No Apparent Distress, WD/WN, Chronically ill HEENT: PERRL/EOMI, Normal ENT Inspection, Pharynx Normal, Moist Mucous Membranes Neck: Full Range of Motion, Normal Inspection, Non Tender Respiratory: Chest Non Tender, Lungs Clear, Normal Breath Sounds, No Accessory Muscle Use, No Respiratory Distress Cardiovascular: Regular Rate, Rhythm, No Edema, No Gallop, No JVD, No Murmur, Normal Peripheral Pulses Capillary Refill: Less Than 3 Seconds Gastrointestinal: other (obese, soft, no pain to palpation) Extremity: Normal Capillary Refill, Normal Inspection, Normal Range of Motion, Non Tender, No Calf Tenderness, No Pedal Edema Neurologic/Psychiatric: Alert, Oriented x3, No Motor/Sensory Deficits (except lower leg paralysis), Normal Mood/Affect Skin: Normal Color, Warm/Dry Lymphatic: No Adenopathy Results Lab Laboratory Tests 07/13/18 03:19 07/14/18 05:00 Assessment/Plan Assessment/Plan Severe sepsis secondary to UTI - with lord sensitive Ecoli - Merrem - Change to -Aggressive IVF -Lord cultures Metabolic lactic acidosis - improving -IVF -Lactic acid improved Paraplegia DM PT is on RA and has no respiratory problems. I am going to sign off. LIBIA SIMONS DO Jul 14, 2018 15:11
[2018-07-14] MEDS ORDERED: cefTRIAXone FOR IV USE 1,000 MG in WATER (STERILE) FOR INJECTION 10 ML IV SCH (15:30)
[2018-07-14] MEDS: PIOGLITAZONE 30MG (ACTOS) TAB PO SCH (16:34)
[2018-07-14] MEDS: metFORMIN 850 MG (GLUCOPHAGE) TAB PO SCH (16:35)
--- NOTE | 2018-07-14 18:49 | Progress Note (SOAP) ---
Subjective Date Seen by a Provider: Jul 14, 2018 Time Seen by a Provider: 12:20 Subjective/Events-last exam Fwup UTI with sepsis, DM II, GERD, paraplegia with muscle spasms. C/O muscles spasms in abdomen and legs. Focused Exam Lactate Level 07/12/18 08:30: Lactic Acid Level 4.02*H 07/12/18 10:30: Lactic Acid Level 3.50*H 07/13/18 03:19: Lactic Acid Level 1.83 Objective Exam Vital Signs Date Time Temp Pulse Resp B/P (MAP) Pulse Ox O2 Delivery O2 Flow Rate FiO2 07/14/18 15:49 98.0 76 20 102/50 (67) 95 Room Air 07/14/18 12:20 99.6 89 20 104/51 (68) 95 Room Air 07/14/18 09:00 Room Air 07/14/18 08:30 98.5 86 20 150/63 (92) 94 Room Air 07/14/18 03:40 99.5 87 16 140/66 (90) 96 Room Air 07/14/18 00:00 99.5 93 18 142/66 (91) 96 Room Air 07/13/18 21:35 99.5 07/13/18 20:33 Room Air 07/13/18 20:30 99.9 80 18 136/62 (86) 94 Room Air 07/13/18 19:01 100.4 I & O 07/14/18 07:00 Intake Total 2982.5 ml Output Total 4575 ml Balance -1592.5 ml Capillary Refill : Less Than 3 Seconds General Appearance: No Apparent Distress Neck: Supple Respiratory: Lungs Clear Cardiovascular: Regular Rate, Rhythm Gastrointestinal: normal bowel sounds, non tender, soft Extremity: Non Tender, No Calf Tenderness, No Pedal Edema Neurologic/Psychiatric: Alert, Oriented x3 Skin: Warm/Dry Results Lab Laboratory Tests 07/14/18 05:00: White Blood Count 12.6H, Red Blood Count 4.42, Hemoglobin 11.9L, Hematocrit 36L , Mean Corpuscular Volume 81, Mean Corpuscular Hemoglobin 27, Mean Corpuscular Hemoglobin Concent 33, Red Cell Distribution Width 15.8H, Platelet Count 199, Mean Platelet Volume 11.9H, Neutrophils (%) (Auto) 76H, Lymphocytes (%) (Auto) 14, Monocytes (%) (Auto) 7, Eosinophils (%) (Auto) 2, Basophils (%) (Auto) 1, Neutrophils # (Auto) 9.6H, Lymphocytes # (Auto) 1.8, Monocytes # (Auto) 0.9, Eosinophils # (Auto) 0.3, Basophils # (Auto) 0.1, Sodium Level 138, Potassium Level 3.8, Chloride Level 108H, Carbon Dioxide Level 18L, Anion Gap 12, Blood Urea Nitrogen 9, Creatinine 0.71, Estimat Glomerular Filtration Rate > 60, BUN/ Creatinine Ratio 13, Glucose Level 188H, Calcium Level 8.9, Phosphorus Level 3.0 , Magnesium Level 1.6L Microbiology 07/12/18 Blood Culture - Preliminary, Resulted No growth 07/12/18 Influenza Types A,B Antigen (LUZ) - Final, Complete 07/12/18 Urine Culture - Final, Complete Escherichia coli Assessment/Plan Assessment/Plan Assess & Plan/Chief Complaint 1. UTI with Sepsis--on rocephin 2. DM II--resume home meds, continue accuchecks with SSI 3. GERD--start protonix 4. Paraplegia with muscle spasms--resume baclofen and start PT for ROM CHELA PISANO DO Jul 14, 2018 18:49
[2018-07-14] MEDS ORDERED: NON-FORMULARY MEDICATION 1 EA EA (Docusate Sodium 100 MG) PO SCH (19:00)
[2018-07-14] MEDS ORDERED: DOCUSATE SODIUM 100 MG (COLACE) CAP PO SCH (19:00)
[2018-07-14] MEDS ORDERED: METFORMIN HCL PO SCH (21:00)
[2018-07-14] MEDS ORDERED: [UNRECOGNIZED DRUG - OTHER] PO SCH (21:00)
[2018-07-14] MEDS ORDERED: ASPIRIN E.C. 81 MG (ECOTRIN) TAB PO SCH (21:00)
[2018-07-14] MEDS ORDERED: PIOGLITAZONE HCL PO SCH (21:00)
[2018-07-14] MEDS ORDERED: FLEET ENEMA ADULT 1 EA BTL PR ONE (22:45)
[2018-07-14] MEDS ORDERED: FLEET ENEMA ADULT 1 EA BTL ONE (22:54)
--- NOTE | 2018-07-14 23:59 | NUR ---
PT REQUESTED AN ENEMA TO HAVE A BOWEL MOVEMENT AND STAY ON SCHEDULE. CALLED DR PISANO AND GOT TELEPHONE ORDER FOR A FLEET ENEMA ONE TIME DOSE.
--- NOTE | 2018-07-15 00:30 | NUR ---
PT DECIDED HE WANTED TO TAKE PREVIOUSLY REFUSED MIRILAX THAT WAS SCHEDULED FOR 07/14/18 AT 2100.
[2018-07-15] MEDS: HYDROcodone/APAP 5 MG/325 MG (LORTAB) TAB PO PRN ×2 (01:48→06:04)
[2018-07-15 04:29] VITALS: BP 90/55
[2018-07-15] MEDS: NS IV 1000 ML 1,000 ML IV SCH ×2 (05:56→14:01)
[2018-07-15] MEDS: metFORMIN 850 MG (GLUCOPHAGE) TAB PO SCH ×2 (06:00→17:52)
[2018-07-15] MEDS: PIOGLITAZONE 30MG (ACTOS) TAB PO SCH ×2 (06:00→17:51)
[2018-07-15 06:38] LABS: BASOPHILS # (AUTO) 0.1 10^3/uL (0.0-0.1); BASOPHILS % (AUTO) 1 % (0-10); EOSINOPHILS # (AUTO) 0.2 10^3/uL (0.0-0.3); EOSINOPHILS % (AUTO) 3 % (0-10); HEMATOCRIT 35 % (40-54); HEMOGLOBIN 11.2 G/DL (13.3-17.7); LYMPHOCYTES # (AUTO) 1.3 X 10^3 (1.0-4.0); LYMPHOCYTES % (AUTO) 13 % (12-44); MEAN CORPUSCULAR HEMOGLOBIN 26 PG (25-34); MEAN CORPUSCULAR HGB CONC 32 G/DL (32-36); MEAN CORPUSCULAR VOLUME 82 FL (80-99); MEAN PLATELET VOLUME 12.3 FL (7.4-10.4); MONOCYTES # (AUTO) 0.7 X 10^3 (0.0-1.0); MONOCYTES % (AUTO) 7 % (0-12); NEUTROPHILS # (AUTO) 7.5 X 10^3 (1.8-7.8); NEUTROPHILS % (AUTO) 77 % (42-75); PLATELET COUNT 228 10^3/uL (130-400); RED CELL DISTRIBUTION WIDTH 15.4 % (10.0-14.5); WHITE BLOOD COUNT 9.8 10^3/uL (4.3-11.0)
[2018-07-15 06:58] LABS: BUN/CREATININE RATIO 14; CALCIUM 8.7 MG/DL (8.5-10.1); CARBON DIOXIDE 18 MMOL/L (21-32); CHLORIDE 107 MMOL/L (98-107); CREATININE SERUM 0.71 MG/DL (0.60-1.30); GFR ESTIMATED > 60; GLUCOSE 233 MG/DL (70-105); MAGNESIUM 1.3 MG/DL (1.8-2.4); PHOSPHORUS 3.5 MG/DL (2.3-4.7); POTASSIUM 3.9 MMOL/L (3.6-5.0); SODIUM 136 MMOL/L (135-145)
[2018-07-15] MEDS ORDERED: LINAGLIPTIN (TRADJENTA) 5 MG TABLET PO SCH (07:00)
[2018-07-15 08:00] VITALS: BP 102/56
[2018-07-15] MEDS: BACLOFEN 10 MG (LIORESAL) TAB PO SCH ×2 (08:02→13:09)
[2018-07-15] MEDS: POLYETHYLENE GLYCOL 17 GM (MIRALAX) PACK PO SCH (08:02)
[2018-07-15] MEDS ORDERED: NON-FORMULARY MEDICATION 1 EA EA (Sitagliptin Phosphate (Januvia) 100 MG) PO SCH (09:00)
[2018-07-15] MEDS ORDERED: BISACODYL 10 MG SUPP (DULCOLAX) RC SCH (09:00)
--- NOTE | 2018-07-15 10:41 | Physical Therapy Daily Note ---
PT Daily Note-Current Subjective Patient agrees to PT. Transfers Therapy Code Descriptions/Definitions Functional Elbert Measure: 0=Not Assessed/NA 4=Minimal Assistance 1=Total Assistance 5=Supervision or Setup 2=Maximal Assistance 6=Modified Elbert 3=Moderate Assistance 7=Complete Elbert Therapy Quality Codes: 6 Independent with activity with or without an assistive device 5 Patient requires set up or clean up by helper. Patient completes activity by themselves 4 Supervision or touching assist (CGA). [place] provide cues , steadying assist 3 The helper provides less than half the effort to complete the activity 2 The helper provides more than half the effort to complete the activity 1 Dependent. The helper does all the effort to complete an activity 7 Patient refused to complete or attempt activity 9 The patient did not perform the activity before the current illness or injury 88 Not attempted due to Medical conditions or safety concerns Exercises Supine Ex: Ankle pumps, Lower trunk rotation, Knee to chest, Straight leg raise , Hip abd/add Supine Reps: 25 (PROM ) Assessment PT to dismiss patient from services and nursing to continue with ROM PRN for maintenance. PT Short Term Goals Short Term Goals Time Frame: Jul 16, 2018 PT Plan Treatment/Plan Treatment Plan: Discontinue PT, goals met Treatment Plan: Therapeutic Exercise, Other Treatment Duration: Jul 16, 2018 Frequency: 2 times per week Estimated Hrs Per Day: .25 hour per day Patient and/or Family Agrees t: Yes Time/GCodes Time In: 1001 Time Out: 1009 Total Billed Treatment Time: 8 Total Billed Treatment 1 visit EX 8 min ERMELINDA ASCENCIO PT Jul 15, 2018 10:41
[2018-07-15 12:00] VITALS: BP 116/79
[2018-07-15] MEDS ORDERED: SULF1TAB35 PO (12:52)
[2018-07-15] MEDS ORDERED: MAGN400C PO (12:52)
--- NOTE | 2018-07-15 12:53 | Discharge Inst-Simple/Standard ---
Discharge Inst-Standard Discharge Medications New, Converted or Re-Newed RX: Transmitted to Pharmacy Patient Instructions/Follow Up Plan of Care/Instructions/FU: Fwup with me in 10 days Activity as Tolerated: Yes Discharge Diet: ADA Diet, Cardiac Diet CHELA PISANO DO Jul 15, 2018 12:53
[2018-07-15] MEDS ORDERED: cefTRIAXone FOR IV USE 1,000 MG in WATER (STERILE) FOR INJECTION 10 ML IV ONE (13:00)
[2018-07-15] MEDS: MAGNESIUM 1 GM/100 ML IVPB 100 ML IV SCH ×2 (13:09→15:45)
--- NOTE | 2018-07-15 14:24 | Physician Query Clarification ---
PQ-Link Infection to Dev/Proc Admission/Discharge Admission Date: Jul 12, 2018 at 09:51 Discharge Date: The medical record reflects the following clinical scenario: History/Risk Factors: Severe Sepsis Paralysis/Wheelchair dependent [place] catheter Clinical Findings:Urine culture- 40,000 CFU/ML E coli. Treatment:IV Meropenem, IV Vancomycin. Question: Can you specify if the Sepsis/UTI is due to/associated with [place] Catheter? Please document a response below. PHYSICIAN RESPONSE Specify if infection: Yes,due to/associated with device In responding to this query, please exercise your independent professional judgment. The purpose of this communication is to more accurately reflect the complexity of your patients condition. The fact that a question is asked does not imply that any particular answer is desired or expected. Thank you for your timely response to this clarification. Requestors name: Ellie Vieira [facility] Phone # ext [phone] or [phone] THIS PHYSICIAN QUERY FORM IS A PERMANENT PART OF THE MEDICAL RECORD ELLIE VIEIRA Jul 15, 2018 14:24 YODIT THOMPSON DO Jul 15, 2018 19:34
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
--- NOTE | 2018-07-15 15:49 | NUR ---
[employer] HAS WORKED ALL AFTERNOON TO ASSIST PT GETTING HOME. OFFERING EMS, AND PT DECLINING. OFFERING PUBLIC TRANSPORT BUT PT DOES NOT HAVE W/C MANUAL. PT STATES HE NEEDS TO JUST GET HOME AND HIS CAN PUT HIM IN HIS POWERED CHAIR. PT ONLY NEEDS A MANUAL CHAIR TO GET THERE. [facility], HOUSE SUP, OFFERED TO ALLOW PT TO BORROW A HOSPITAL W/C IF HEADING AND PRIMING TOOL SETTER BRINGS IT RIGHT BACK. PT AND CG AGREED. [place] CATH REMOVED PT USES CATH CONDOM. NEW BAG APPLIED. IV D/C'D.
--- NOTE | 2018-07-15 16:04 | NUR ---
ELEANOR/NATHANIEL arranged transportation with [employer], trip # [phone]. They will transport between window of 4-7pm. Patient and family will borrow manual wheelchair from hospital and then return it to the hospital. Patient and RNing updated. Addendum: 07/15/18 at 1606 by LISBETH WALTERS [employer] (formerly [employer]) transportation # [phone]
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
--- NOTE | 2018-07-15 18:44 | NUR ---
REPOSITIONED PT MULTIPLE TIMES THIS PAST HOUR; PT COMPLAINING OF THE W/C HE IS USING THAT HOSPITAL IS PROVIDING FOR HIM TO BE ABLE TO GET HOME. ADVISED HIM THAT THIS IS IT AND IT HAS TO WORK FOR HIM IF HE IS GOING HOME. ONCE TRANSPORT RETURNS W CORRECT VEHICLE THIS WILL ALL BE DONE. ADVISED HIM TO GET HIS OWN MANUAL W/C IN CASE ANYTHING LIKE THIS HAPPENS AGAIN AND HE HAS TO BE IN HOSPITAL THAT WAY HE DOES NOT HAVE TO WAIT ON THINGS SO MUCH SINCE HE IS SO DIS-SATISFIED WITH WHAT THE HOSPITAL IS HELPING HIM WITH. REMINDED HIM TO HAVE HIS CAREGIVER RETURN THE W/C WE ARE LETTING HIM BORROW TO GET HOME. HE VOICED HE WILL HAVE HIM BRING IT BACK RIGHT AWAY.
== END 2018-07-15 19:15 | disposition home or self-care (01) | DRG 698 ==
LOC: EDUNIT# 08:13 → ER 08:14 → ICU 09:51 → 4TH 07-13 11:37
PROVIDERS: ADMIT Internal Medicine; ATTEND Internal Medicine
DX: T83.518A Infection and inflammatory reaction due to other urinary catheter, initial encounter (principal); A41.51 Sepsis due to Escherichia coli [E. coli]; R65.20 Severe sepsis without septic shock; N30.01 Acute cystitis with hematuria; G82.20 Paraplegia, unspecified; E87.2 Acidosis; N31.9 Neuromuscular dysfunction of bladder, unspecified; R32 Unspecified urinary incontinence; M43.6 Torticollis; K21.9 Gastro-esophageal reflux disease without esophagitis; G47.30 Sleep apnea, unspecified; J44.9 Chronic obstructive pulmonary disease, unspecified; E11.9 Type 2 diabetes mellitus without complications; I95.9 Hypotension, unspecified; E83.42 Hypomagnesemia; M62.838 Other muscle spasm; M62.551 Muscle wasting and atrophy, not elsewhere classified, right thigh; M62.552 Muscle wasting and atrophy, not elsewhere classified, left thigh; M62.561 Muscle wasting and atrophy, not elsewhere classified, right lower leg; M62.562 Muscle wasting and atrophy, not elsewhere classified, left lower leg; M54.9 Dorsalgia, unspecified; M19.91 Primary osteoarthritis, unspecified site; Z87.891 Personal history of nicotine dependence; Z99.3 Dependence on wheelchair; Z16.12 Extended spectrum beta lactamase (ESBL) resistance
CPT/HCPCS: 36415; 51702; 71045; 80048; 80053; 81000; 83605; 83735; 84100; 85007; 85025; 85027; 85610; 87040; 87077; 87081; 87088; 87186; 87804; 96361; 96365

== ENCOUNTER → 2018-09-11 | Outpatient (CLI) | payer MEDICAID ==
[~2018-09-11] MED LIST changes: +ASPI-983 PO; +MAGN400C PO; +SULF1TAB35 PO
== END ==
LOC: LAB FS 14:37
PROVIDERS: ATTEND Family Medicine
DX: E11.621 Type 2 diabetes mellitus with foot ulcer (principal); L89.523 Pressure ulcer of left ankle, stage 3
CPT/HCPCS: 87070; 87075; 87077; 87186; 87205

== ENCOUNTER → 2018-10-10 | Outpatient (CLI) | payer MEDICAID ==
[~2018-10-10] MED LIST changes: +AMOX-355 PO; +Bethanechol Chl PO; +FLUC100T6 PO; +TAMS0.4C98 PO
[2018-10-10 18:27] LABS: BILIRUBIN,URINE NEGATIVE (NEGATIVE); CLARITY,URINE VERY CLOUDY; COLOR,URINE YELLOW; GLUCOSE, URINE (UA) NEGATIVE (NEGATIVE); KETONES,URINE NEGATIVE (NEGATIVE); LEUKOCYTE ESTERASE ,URINE 3+ (NEGATIVE); NITRITE,URINE NEGATIVE (NEGATIVE); PH,URINE 7 (5-9); PROTEIN,URINE 1+ (NEGATIVE); UROBILINOGEN,URINE NORMAL (NORMAL)
[2018-10-10 18:35] LABS: WBC,URINE TNTC /HPF
[2018-10-10 18:36] LABS: BACTERIA,URINE LARGE /HPF
== END ==
LOC: LAB 18:19
PROVIDERS: ATTEND Family Medicine
DX: R30.0 Dysuria (principal)
CPT/HCPCS: 81000; 87077; 87088; 87186

== ENCOUNTER 2018-10-11 14:05 | Inpatient (IN) | payer MEDICAID ==
[~2018-10-11] VITALS: Ht 182.9 cm; Wt 89.1 kg
[2018-10-11] VITALS (8 sets, daily range): BP systolic 67–92; BP diastolic 45–61
[~2018-10-11 14:05] MED LIST changes: -AMOX-355 PO; -Bethanechol Chl PO; -FLUC100T6 PO; -TAMS0.4C98 PO
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
[2018-10-11] MEDS ORDERED: LIDOCAINE UROJET 2% GEL 10 ML PKG ONE (14:16)
--- NOTE | 2018-10-11 14:25 | NUR ---
18F FRANKLIN PLACED BY ALMAS LARKIN. PT CLEANED UP AFTER, NEW SHEETS ET GOWN TO PT.
[2018-10-11] MEDS ORDERED: NS IV 1000 ML 1,000 ML ONE (14:34)
[2018-10-11] MEDS ORDERED: ONDANSETRON 4 MG/2 ML (SDV) Z0FRAN ONE (14:38)
--- NOTE | 2018-10-11 14:38 | NUR ---
PT PRESENTLY HYPOTENSIVE. DR POLLOCK AWARE. FLUIDS ORDERED.
[2018-10-11] MEDS ORDERED: cefTRIAXone FOR IV USE 2,000 MG in WATER (STERILE) FOR INJECTION 20 ML IV ONE (14:45)
[2018-10-11] MEDS ORDERED: NS IV 1000 ML 1,000 ML IV ONE (14:45)
[2018-10-11] MEDS ORDERED: ONDANSETRON 4 MG/2 ML (SDV) Z0FRAN IVP ONE (14:45)
[2018-10-11 14:47] LABS: BILIRUBIN,URINE NEGATIVE (NEGATIVE); CLARITY,URINE SLIGHTLY CLOUDY; COLOR,URINE YELLOW; GLUCOSE, URINE (UA) NEGATIVE (NEGATIVE); KETONES,URINE NEGATIVE (NEGATIVE); LEUKOCYTE ESTERASE ,URINE 3+ (NEGATIVE); NITRITE,URINE NEGATIVE (NEGATIVE); PH,URINE 7 (5-9); PROTEIN,URINE 2+ (NEGATIVE); UROBILINOGEN,URINE NORMAL (NORMAL)
[2018-10-11 14:55] LABS: BACTERIA,URINE MODERATE /HPF; WBC,URINE 25-50 /HPF
[2018-10-11 15:15] LABS: BASOPHILS % (AUTO) 1 % (0-10); EOSINOPHILS # (AUTO) 0.1 10^3/uL (0.0-0.3); EOSINOPHILS % (AUTO) 3 % (0-10); HEMATOCRIT 37 % (40-54); LYMPHOCYTES # (AUTO) 0.6 X 10^3 (1.0-4.0); LYMPHOCYTES % (AUTO) 17 % (12-44); MEAN CORPUSCULAR HEMOGLOBIN 26 PG (25-34); MEAN CORPUSCULAR HGB CONC 33 G/DL (32-36); MEAN CORPUSCULAR VOLUME 79 FL (80-99); MEAN PLATELET VOLUME 12.3 FL (7.4-10.4); MONOCYTES % (AUTO) 1 % (0-12); NEUTROPHILS # (AUTO) 2.6 X 10^3 (1.8-7.8); NEUTROPHILS % (AUTO) 79 % (42-75); PLATELET COUNT 247 10^3/uL (130-400); RED CELL DISTRIBUTION WIDTH 15.4 % (10.0-14.5); WHITE BLOOD COUNT 3.2 10^3/uL (4.3-11.0)
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
--- NOTE | 2018-10-11 15:24 | NUR ---
PT C/O CONSTANT SHAKING. DR POLLOCK AWARE, ORDERS PLACED
[2018-10-11 15:27] LABS: ALANINE AMINOTRANSFERASE 20 U/L (0-55); ALKALINE PHOSPHATASE 71 U/L (40-136); BILIRUBIN,TOTAL 0.5 MG/DL (0.1-1.0); BUN/CREATININE RATIO 14; CALCIUM 9.2 MG/DL (8.5-10.1); CARBON DIOXIDE 20 MMOL/L (21-32); CHLORIDE 100 MMOL/L (98-107); CREATININE SERUM 0.78 MG/DL (0.60-1.30); GFR ESTIMATED > 60; GLUCOSE 125 MG/DL (70-105); POTASSIUM 4.3 MMOL/L (3.6-5.0); SODIUM 135 MMOL/L (135-145); TOTAL PROTEIN 7.4 GM/DL (6.4-8.2)
[2018-10-11] MEDS ORDERED: NS IV 1000 ML 1,000 ML IV SCH ×3 (15:30→23:30)
[2018-10-11] MEDS ORDERED: LORazepam INJ 2 MG/ML (ATIVAN) VIAL IVP ONE (15:30)
[2018-10-11 15:41] LABS: ERYTHROCYTE SEDIMENTATION RATE 43 MM/HR (0-30)
[2018-10-11] MEDS ORDERED: ACETAMINOPHEN 500 MG TAB (TYLENOL) PO ONE (15:45)
[2018-10-11] MEDS ORDERED: VANCOMYCIN INJECTION 1,000 MG in NS (IVPB) 250 ML IV SCH (16:00)
[2018-10-11] MEDS ORDERED: LIDOCAINE UROJET 2% GEL 10 ML PKG TOP ONE (16:15)
[2018-10-11] MEDS: MEROPENEM 500 MG in WATER (STERILE) FOR INJECTION 10 ML IV SCH ×2 (16:16→22:52)
--- NOTE | 2018-10-11 16:24 | Diagnostic Imaging Report ---
INDICATION: Sepsis, hypotension. EXAMINATION: Single view of the chest was obtained. FINDINGS: Given the apical lordotic orientation, cardiomediastinal contour is not grossly abnormal. There is air trapping and COPD, chronic. The heart size is upper limits but stable. No acute infiltrate, effusion or pneumothorax. IMPRESSION: No acute appearing abnormality. Dictated by: Dictated on workstation # [id number]
[2018-10-11] MEDS ORDERED: NOREPINEPHRINE 4 MG in NS (IVPB) 250 ML IV SCH (20:41)
[2018-10-11] MEDS ORDERED: ACETAMINOPHEN 500 MG TAB (TYLENOL) PO PRN (20:45)
[2018-10-11] MEDS ORDERED: MEROPENEM 500 MG VIAL (MERREM) IV ONE (22:28)
[2018-10-11] MEDS ORDERED: WATER (STERILE) FOR INJECTION 10 ML ONE (22:28)
--- NOTE | 2018-10-11 22:50 | NUR ---
PATIENT CONTINUES TO BE HYPOTENSIVE AFTER IV BOLUS INFUSION AND VANCO ADMINISTERED. CONSENT FOR CENTRAL LINE PLACEMENT OBTAINED. DR. KHAN TO BEDSIDE. PATIENT TOLERATED WELL. 0007-RECEIVED CALL FROM DR. KHAN INFORMING THIS RN THAT CENTRAL LINE CAN BE USED PER CHEST X-RAY.
[2018-10-11] MEDS: NS IV 1000 ML 1,000 ML IV SCH (22:55)
[2018-10-11] MEDS ORDERED: VASOPRESSIN INJECTION 20 UNIT in NS (IVPB) 100 ML IV SCH (23:45)
[2018-10-11] MEDS: NOREPINEPHRINE 4 MG in NS (IVPB) 250 ML IV SCH (23:47)
[2018-10-12] VITALS (25 sets, daily range): BP systolic 74–204; BP diastolic 50–124
[2018-10-12 03:42] LABS: BASOPHILS % (AUTO) 0 % (0-10); EOSINOPHILS % (AUTO) 0 % (0-10); HEMATOCRIT 30 % (40-54); HEMOGLOBIN 9.6 G/DL (13.3-17.7); LYMPHOCYTES # (AUTO) 0.4 X 10^3 (1.0-4.0); LYMPHOCYTES % (AUTO) 2 % (12-44); MEAN CORPUSCULAR HEMOGLOBIN 25 PG (25-34); MEAN CORPUSCULAR HGB CONC 32 G/DL (32-36); MEAN CORPUSCULAR VOLUME 80 FL (80-99); MEAN PLATELET VOLUME 11.7 FL (7.4-10.4); MONOCYTES % (AUTO) 6 % (0-12); NEUTROPHILS # (AUTO) 15.7 X 10^3 (1.8-7.8); NEUTROPHILS % (AUTO) 92 % (42-75); PLATELET COUNT 208 10^3/uL (130-400); RED CELL DISTRIBUTION WIDTH 15.6 % (10.0-14.5); WHITE BLOOD COUNT 17.1 10^3/uL (4.3-11.0)
[2018-10-12 04:01] LABS: BUN/CREATININE RATIO 11; CALCIUM 7.9 MG/DL (8.5-10.1); CARBON DIOXIDE 20 MMOL/L (21-32); CHLORIDE 107 MMOL/L (98-107); CREATININE SERUM 0.75 MG/DL (0.60-1.30); GFR ESTIMATED > 60; GLUCOSE 179 MG/DL (70-105); PHOSPHORUS 2.5 MG/DL (2.3-4.7); POTASSIUM 4.1 MMOL/L (3.6-5.0); SODIUM 139 MMOL/L (135-145)
[2018-10-12] MEDS ORDERED: MEROPENEM 500 MG VIAL (MERREM) IV ONE (04:07)
[2018-10-12] MEDS ORDERED: WATER (STERILE) FOR INJECTION 10 ML ONE (04:08)
[2018-10-12 04:13] LABS: BAND NEUTROPHILS 10 %; LYMPHOCYTES % (MANUAL) 1 %; MICROCYTOSIS SLIGHT; MONOCYTES % (MANUAL) 3 %; NEUTROPHILS % (MANUAL) 86 %
[2018-10-12] MEDS: MEROPENEM 500 MG in WATER (STERILE) FOR INJECTION 10 ML IV SCH ×4 (04:31→23:45)
[2018-10-12] MEDS: NS IV 1000 ML 1,000 ML IV SCH ×6 (04:31→20:26)
[2018-10-12] MEDS: MAGNESIUM 1 GM/100 ML IVPB 100 ML IV SCH ×7 (04:35→08:13)
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
[2018-10-12] MEDS: ENOXAPARIN 40 MG/0.4 ML (LOVENOX) SYR SC SCH (06:07)
[2018-10-12] MEDS: POTASSIUM CL 10MEQ/50ML IVPB 50 ML IV SCH (06:08)
[2018-10-12] MEDS: KCL 20 MEQ TAB (K-DUR) PO SCH (06:21)
[2018-10-12] MEDS: HYDROCORTISONE 100 MG/2 ML (Solu-CORTEF) VIAL IV SCH ×3 (06:24→22:00)
--- NOTE | 2018-10-12 07:37 | Diagnostic Imaging Report ---
INDICATION: Central line placement. Compared with study earlier this same date. Right IJ catheter at the SVC. No pneumothorax. Given mediastinal fat and somewhat apical lordotic orientation mediastinal contours are within normal limits and stable. The heart size upper limits but stable. No effusion. IMPRESSION: Central line at the upper SVC. No pneumothorax. No other change. Dictated by: Dictated on workstation # [id number]
[2018-10-12] MEDS: PANTOPRAZOLE 40 MG (PROTONIX) VIAL IV SCH (08:12)
[2018-10-12] MEDS: VANCOMYCIN 1500 MG/NS 500 ML IVPB IV SCH ×4 (08:13→20:25)
--- NOTE | 2018-10-12 09:30 | NUR ---
BP trending up. Levophed placed on hold at this time
[2018-10-12 13:09] LABS: BUN/CREATININE RATIO 8; CALCIUM 7.7 MG/DL (8.5-10.1); CARBON DIOXIDE 19 MMOL/L (21-32); CHLORIDE 108 MMOL/L (98-107); CREATININE SERUM 0.75 MG/DL (0.60-1.30); GFR ESTIMATED > 60; GLUCOSE 259 MG/DL (70-105); MAGNESIUM 2.2 MG/DL (1.8-2.4); PHOSPHORUS 1.7 MG/DL (2.3-4.7); POTASSIUM 4.2 MMOL/L (3.6-5.0); SODIUM 137 MMOL/L (135-145)
--- NOTE | 2018-10-12 13:15 | NUR ---
Notified Dr. Lee of repeat labs after mg replacement. New orders received.
--- NOTE | 2018-10-12 13:16 | CONSULTATION REPORT ---
DATE OF SERVICE: 10/12/2018 ATTENDING PHYSICIAN: Dr. Destin Barrientos. SUMMARY: A 53-year-old paraplegic known to me before with neurogenic bladder and history of UTIs. I had seen him in consultation back in April of 2016. I did a cystoscopy on him which revealed no major obstruction from the prostate. At that time, he was using a [place] catheter. I gave him the option between continuing that and had a vitamin C and Cranberry tablets and Macrodantin 100 mg daily versus a suprapubic tube versus Sánchez catheter. He elected the option one. Yesterday, he was seen by the home health care nurse and he was catheterized for retention of about 700 mL of urine apparently. Then the nurse came back the following day to remove the catheter and somehow when she pulled it out, clots came out and hematuria. He was subsequently sent to the emergency room where diagnosis of possible sepsis with leukopenia and today leukocytosis and elevation of lactic acid. He was started on antibiotics pending the results of the cultures. He is feeling better. His urine is clear. IMPRESSION: 1. Neurogenic bladder, now with retention. 2. History of urinary tract infections. PLAN: We will go ahead and start him on Flomax and Urecholine if it is okay with Dr. Gonzalez to boost his emptying of his bladder and no need for catheterizations. Thank you for letting me to participate in the care of this patient. We will follow with you. Job ID: [id number] DocumentID: [id number] Dictated Date: 10/12/2018 10:16:46 School Vocational Educator Date: 10/12/2018 13:16:01 Dictated By: BECCA EVANS MD
[2018-10-12] MEDS ORDERED: NS IV 1000 ML 1,000 ML IV SCH (13:30)
[2018-10-12] MEDS ORDERED: BACLOFEN 10 MG (LIORESAL) TAB ONE (14:28)
[2018-10-12] MEDS: ASCORBIC ACID (VIT C) 500 MG TABLET PO SCH (14:37)
[2018-10-12] MEDS: LINAGLIPTIN (TRADJENTA) 5 MG TABLET PO SCH (14:37)
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
--- NOTE | 2018-10-12 15:24 | NUR ---
BPs trending down. Restarted levophed gtt
[2018-10-12] MEDS: NOREPINEPHRINE 4 MG in NS (IVPB) 250 ML IV SCH (16:18)
[2018-10-12] MEDS: BETHANECHOL 25 MG (URECHOLINE) TAB PO SCH ×2 (16:18→20:26)
[2018-10-12] MEDS: TAMSULOSIN 0.4 MG (FLOMAX) CAP PO SCH (17:41)
[2018-10-12] MEDS: DOCUSATE SODIUM 100 MG (COLACE) CAP PO SCH (17:42)
[2018-10-12] MEDS: PIOGLITAZONE 30MG (ACTOS) TAB PO SCH (20:26)
[2018-10-12] MEDS: ASPIRIN E.C. 81 MG (ECOTRIN) TAB PO SCH (20:26)
[2018-10-12] MEDS: BACLOFEN 10 MG (LIORESAL) TAB PO SCH (20:27)
[2018-10-12] MEDS: metFORMIN 850 MG (GLUCOPHAGE) TAB PO SCH (20:38)
[2018-10-12] MEDS ORDERED: POLYETHYLENE GLYCOL 17 GM (MIRALAX) PACK PO PRN (20:45)
[2018-10-12] MEDS ORDERED: [UNRECOGNIZED DRUG - OTHER] PO SCH (21:00)
[2018-10-12] MEDS ORDERED: PIOGLITAZONE HCL PO SCH (21:00)
[2018-10-12] MEDS ORDERED: METFORMIN HCL PO SCH (21:00)
[2018-10-13] VITALS (11 sets, daily range): BP systolic 99–131; BP diastolic 59–81
[2018-10-13] MEDS ORDERED: BISACODYL 10 MG SUPP (DULCOLAX) ONE (02:01)
[2018-10-13] MEDS: BISACODYL 10 MG SUPP (DULCOLAX) RC SCH (02:16)
[2018-10-13 03:51] LABS: BASOPHILS % (AUTO) 0 % (0-10); EOSINOPHILS % (AUTO) 0 % (0-10); HEMATOCRIT 29 % (40-54); HEMOGLOBIN 9.4 G/DL (13.3-17.7); LYMPHOCYTES # (AUTO) 0.7 X 10^3 (1.0-4.0); LYMPHOCYTES % (AUTO) 4 % (12-44); MEAN CORPUSCULAR HEMOGLOBIN 26 PG (25-34); MEAN CORPUSCULAR HGB CONC 33 G/DL (32-36); MEAN CORPUSCULAR VOLUME 81 FL (80-99); MEAN PLATELET VOLUME 12.2 FL (7.4-10.4); MONOCYTES # (AUTO) 0.7 X 10^3 (0.0-1.0); MONOCYTES % (AUTO) 5 % (0-12); NEUTROPHILS # (AUTO) 14.2 X 10^3 (1.8-7.8); NEUTROPHILS % (AUTO) 91 % (42-75); PLATELET COUNT 170 10^3/uL (130-400); RED CELL DISTRIBUTION WIDTH 15.7 % (10.0-14.5); WHITE BLOOD COUNT 15.5 10^3/uL (4.3-11.0)
[2018-10-13 04:08] LABS: BUN/CREATININE RATIO 8; CALCIUM 7.8 MG/DL (8.5-10.1); CARBON DIOXIDE 19 MMOL/L (21-32); CHLORIDE 108 MMOL/L (98-107); CREATININE SERUM 0.71 MG/DL (0.60-1.30); GFR ESTIMATED > 60; GLUCOSE 309 MG/DL (70-105); MAGNESIUM 1.8 MG/DL (1.8-2.4); PHOSPHORUS 1.4 MG/DL (2.3-4.7); POTASSIUM 4.3 MMOL/L (3.6-5.0); SODIUM 136 MMOL/L (135-145)
[2018-10-13] MEDS: MAGNESIUM 1 GM/100 ML IVPB 100 ML IV SCH (04:49)
[2018-10-13] MEDS: KCL 20 MEQ TAB (K-DUR) PO SCH (04:49)
[2018-10-13] MEDS: NS IV 1000 ML 1,000 ML IV SCH (05:11)
[2018-10-13] MEDS ORDERED: PHOS-NAK PACKET (NON-FORMULARY) PO ONE (05:15)
[2018-10-13] MEDS: ENOXAPARIN 40 MG/0.4 ML (LOVENOX) SYR SC SCH (06:06)
[2018-10-13] MEDS: MEROPENEM 500 MG in WATER (STERILE) FOR INJECTION 10 ML IV SCH ×3 (06:06→17:23)
[2018-10-13] MEDS: HYDROCORTISONE 100 MG/2 ML (Solu-CORTEF) VIAL IV SCH (06:06)
[2018-10-13] MEDS: BETHANECHOL 25 MG (URECHOLINE) TAB PO SCH ×4 (06:06→21:22)
[2018-10-13] MEDS: POTASSIUM CL 10MEQ/50ML IVPB 50 ML IV SCH (06:07)
--- NOTE | 2018-10-13 06:27 | Pulmonary Progress Note ---
Subjective Time Seen by a Provider: 06:27 Subjective/Events-last exam PT is doing much better. He is off Levophed. Sepsis Event Evaluation Height, Weight, BMI Height: 6'0.00" Weight: 196lbs. 6.0oz. 89.268989hw; 26.6 BMI Method:Stated Focused Exam Lactate Level 10/12/18 12:43: Lactic Acid Level 2.53*H 10/12/18 17:37: Lactic Acid Level 1.09 10/13/18 03:40: Lactic Acid Level 2.00 Lactic Acid Level Laboratory Tests Test 10/13/18 03:40 Lactic Acid Level 2.00 MMOL/L (0.50-2.00) Exam Exam Vital Signs Date Time Temp Pulse Resp B/P (MAP) Pulse Ox O2 Delivery O2 Flow Rate FiO2 10/13/18 06:00 67 17 131/74 (93) 93 Room Air 10/13/18 05:00 65 12 123/79 (94) 95 NIV CPAP 10/13/18 04:15 63 13 117/74 (88) 94 NIV CPAP 10/13/18 04:00 97 NIV CPAP 10/13/18 03:00 71 22 120/75 (90) 96 NIV CPAP 10/13/18 02:00 68 13 110/63 (79) 96 NIV CPAP 10/13/18 01:00 65 10/13/18 01:00 65 11 99/64 (76) 95 NIV CPAP 10/13/18 00:00 69 9 116/70 (85) 96 NIV CPAP 10/13/18 00:00 96 NIV CPAP 10/12/18 23:15 69 11 101/61 (74) 95 NIV CPAP 10/12/18 22:30 79 17 131/80 (97) 97 NIV CPAP 10/12/18 22:15 71 15 121/72 (88) 92 NIV CPAP 3.00 10/12/18 22:10 73 12 91 NIV CPAP 3.00 10/12/18 22:00 NIV CPAP 3.00 10/12/18 21:00 79 22 109/74 (86) Nasal Cannula 3.00 10/12/18 20:30 80 13 100/62 (75) Nasal Cannula 3.00 10/12/18 20:00 93 Nasal Cannula 2.00 10/12/18 19:00 75 22 155/98 (117) 92 Nasal Cannula 3.00 10/12/18 19:00 75 10/12/18 18:00 86 12 143/87 (105) 90 NIV CPAP 5.00 10/12/18 17:00 66 12 204/124 (150) 91 NIV CPAP 5.00 10/12/18 16:00 80 12 151/89 (109) 92 NIV CPAP 5.00 10/12/18 16:00 92 NIV CPAP 2.00 10/12/18 15:00 71 26 89/59 (69) 91 NIV CPAP 5.00 10/12/18 14:00 73 9 82/50 (61) 91 NIV CPAP 5.00 10/12/18 13:00 77 10/12/18 13:00 70 13 74/69 (71) 91 NIV CPAP 5.00 10/12/18 12:00 97.5 10/12/18 12:00 92 NIV CPAP 2.00 10/12/18 12:00 69 14 112/96 (101) 91 NIV CPAP 5.00 10/12/18 11:00 77 38 101/59 (73) 89 NIV CPAP 5.00 10/12/18 10:00 75 28 126/88 (101) 90 NIV CPAP 8.00 10/12/18 09:00 78 26 129/53 (78) 91 NIV CPAP 8.00 10/12/18 08:00 77 28 117/64 (81) 92 NIV CPAP 8.00 10/12/18 08:00 97.8 10/12/18 08:00 92 NIV CPAP 2.00 10/12/18 08:00 98.8 77 28 117/64 (81) 92 NIV CPAP 2.00 2.00 10/12/18 07:00 86 26 110/60 (77) 91 NIV CPAP 8.00 10/12/18 07:00 78 I & O 10/13/18 07:00 Intake Total 6621.5 ml Output Total 4900 ml Balance 1721.5 ml Height & Weight Height: 6'0.00" Weight: 196lbs. 6.0oz. 89.867681my; 26.6 BMI Method:Stated General Appearance: No Apparent Distress, WD/WN, Chronically ill, Obese HEENT: PERRL/EOMI, Normal ENT Inspection, Pharynx Normal, Moist Mucous Membranes Neck: Full Range of Motion, Normal Inspection, Non Tender Respiratory: Chest Non Tender, Lungs Clear, Normal Breath Sounds, No Accessory Muscle Use, No Respiratory Distress Cardiovascular: Regular Rate, Rhythm, No Edema, No Gallop, No JVD, No Murmur, Normal Peripheral Pulses Capillary Refill: Less Than 3 Seconds Gastrointestinal: non tender Extremity: Normal Capillary Refill, Normal Inspection, Non Tender, No Calf Tenderness, No Pedal Edema, Other (paraplegia) Neurologic/Psychiatric: Alert, Oriented x3, No Motor/Sensory Deficits, Normal Mood/Affect Skin: Normal Color, Warm/Dry Lymphatic: No Adenopathy Results Lab Laboratory Tests 10/11/18 14:13 10/12/18 03:30 10/12/18 12:43 10/13/18 03:40 Assessment/Plan Assessment/Plan UTI with severe sepsis -Continue Merrem and Vanco -Await lord cultures atelectasis with hypoxia -IS -Monitor Hypotension- resolved Anemia -monitor Paraplegic with chronic you Hypomag -replace and repeat JUAN with obesity -currently on home CPAP Will transfer to 4th floor. LIBIA SIMONS DO Oct 13, 2018 06:27
[2018-10-13] MEDS: inSUlin ASPART (NovoLOG) 1 UNIT/0.01 ML (CHARGE PER UNIT) SC SCH ×4 (06:40→21:22)
--- NOTE | 2018-10-13 06:48 | Diagnostic Imaging Report ---
Clinical indication: Patient with dyspnea. Exam: Portable chest x-ray upright view. Comparisons: Chest x-ray dated 10/11/2018. Findings: Again seen right IJ central line with tip in the proximal superior vena cava, stable. There is mild left basilar atelectasis which has slightly progressed. Otherwise, lungs are clear. The bilateral costophrenic angles are not completely imaged inferiorly. There is no definite pleural effusion. Stable cardiomegaly. There is no significant pulmonary vascular congestion. Again seen cerclage wires overlying the lower cervical spine. The remainder of this exam shows no significant interval change compared to the prior study of comparison. Impression: 1: Interval development of mild left lung base atelectasis. 2: Stable cardiomegaly with no significant pulmonary vascular congestion. Dictated by: Dictated on workstation # [id number]
--- NOTE | 2018-10-13 08:00 | NUR ---
RECEIVED FROM ICU PER BED, ALERT, FRANKLIN PATENT WITH CLEAR YELLOW URINE, IJ RIGHT NECK WITHOUT REDNESS OR SWELLING, SCD'S ON, HEEL PROTECTORS ON, DENIES PAIN AT THIS TIME, CALL LIGHT WITHIN REACH, PATIENT ON AIR BED
[2018-10-13] MEDS ORDERED: NON-FORMULARY MEDICATION 1 EA EA (Cranberry Conc/Ascorbic Acid (Cranberry Plus Vitamin C S PO SCH (09:00)
[2018-10-13] MEDS ORDERED: PANTOPRAZOLE 40 MG (PROTONIX) TAB PO PRN (09:00)
--- NOTE | 2018-10-13 10:17 | Progress Note-Urology ---
Progress Note-Urology Progress Notes/Assess & Plan Progress/Assessment & Plan FEELING BETTER. URINE CLEAR Final Diagnosis URINE RETENTION AND HEMATURIA BECCA EVANS MD Oct 13, 2018 10:17
[2018-10-13] MEDS: PANTOPRAZOLE 40 MG (PROTONIX) VIAL IV SCH (10:33)
[2018-10-13] MEDS: PIOGLITAZONE 30MG (ACTOS) TAB PO SCH ×2 (10:33→21:21)
[2018-10-13] MEDS: ASCORBIC ACID (VIT C) 500 MG TABLET PO SCH (10:34)
[2018-10-13] MEDS: BACLOFEN 10 MG (LIORESAL) TAB PO SCH ×3 (10:34→21:21)
[2018-10-13] MEDS: LINAGLIPTIN (TRADJENTA) 5 MG TABLET PO SCH (10:34)
[2018-10-13] MEDS: metFORMIN 850 MG (GLUCOPHAGE) TAB PO SCH ×2 (10:35→21:22)
[2018-10-13] MEDS ORDERED: SODIUM PHOSPHATE INJ 30 MM in NS (IVPB) 250 ML IV ONE (14:45)
[2018-10-13] MEDS: TAMSULOSIN 0.4 MG (FLOMAX) CAP PO SCH (17:23)
[2018-10-13] MEDS: DOCUSATE SODIUM 100 MG (COLACE) CAP PO SCH (18:51)
--- NOTE | 2018-10-13 20:30 | Progress Note (SOAP) ---
Subjective Date Seen by a Provider: Oct 13, 2018 Time Seen by a Provider: 12:20 Subjective/Events-last exam Fwup UTI with sepsis, paraplegia with neurogenic bladder, DM II. Feeling better--no further chills. Focused Exam Lactate Level 10/12/18 12:43: Lactic Acid Level 2.53*H 10/12/18 17:37: Lactic Acid Level 1.09 10/13/18 03:40: Lactic Acid Level 2.00 Objective Exam Vital Signs Date Time Temp Pulse Resp B/P (MAP) Pulse Ox O2 Delivery O2 Flow Rate FiO2 10/13/18 19:59 97.9 64 20 101/59 (73) 96 Room Air 10/13/18 19:44 64 10/13/18 15:31 97.5 58 20 115/75 (88) 97 Room Air 10/13/18 08:00 96 NIV CPAP 10/13/18 08:00 67 10 109/81 (90) 96 Room Air 10/13/18 07:00 86 14 107/80 (89) 96 Room Air 10/13/18 07:00 86 10/13/18 06:00 67 17 131/74 (93) 93 Room Air 10/13/18 05:00 65 12 123/79 (94) 95 NIV CPAP 10/13/18 04:15 63 13 117/74 (88) 94 NIV CPAP 10/13/18 04:00 98.8 10/13/18 04:00 97 NIV CPAP 10/13/18 03:00 71 22 120/75 (90) 96 NIV CPAP 10/13/18 02:00 68 13 110/63 (79) 96 NIV CPAP 10/13/18 01:00 65 10/13/18 01:00 65 11 99/64 (76) 95 NIV CPAP 10/13/18 00:00 98.7 10/13/18 00:00 69 9 116/70 (85) 96 NIV CPAP 10/13/18 00:00 96 NIV CPAP 10/12/18 23:15 69 11 101/61 (74) 95 NIV CPAP 10/12/18 22:30 79 17 131/80 (97) 97 NIV CPAP 10/12/18 22:15 71 15 121/72 (88) 92 NIV CPAP 3.00 10/12/18 22:10 73 12 91 NIV CPAP 3.00 10/12/18 22:00 NIV CPAP 3.00 10/12/18 21:00 79 22 109/74 (86) Nasal Cannula 3.00 10/12/18 20:30 80 13 100/62 (75) Nasal Cannula 3.00 I & O0 10/13/18 06:59 Intake Total 7436.5 ml Output Total 4900 ml Balance 2536.5 ml Capillary Refill : Less Than 3 Seconds General Appearance: No Apparent Distress Neck: Supple Respiratory: Lungs Clear Cardiovascular: Regular Rate, Rhythm Gastrointestinal: normal bowel sounds, non tender, soft Extremity: Non Tender, No Calf Tenderness, No Pedal Edema Neurologic/Psychiatric: Alert, Oriented x3 Skin: Warm/Dry Results Lab Laboratory Tests 10/13/18 03:40: White Blood Count 15.5H, Red Blood Count 3.57L, Hemoglobin 9.4L, Hematocrit 29L, Mean Corpuscular Volume 81, Mean Corpuscular Hemoglobin 26, Mean Corpuscular Hemoglobin Concent 33, Red Cell Distribution Width 15.7H, Platelet Count 170, Mean Platelet Volume 12.2H, Neutrophils (%) (Auto) 91H, Lymphocytes (%) (Auto) 4L, Monocytes (%) (Auto) 5, Eosinophils (%) (Auto) 0, Basophils (%) (Auto) 0, Neutrophils # (Auto) 14.2H, Lymphocytes # (Auto) 0.7L, Monocytes # (Auto) 0.7, Eosinophils # (Auto) 0.0, Basophils # (Auto) 0.0, Sodium Level 136, Potassium Level 4.3, Chloride Level 108H, Carbon Dioxide Level 19L, Anion Gap 9, Blood Urea Nitrogen 6L, Creatinine 0.71, Estimat Glomerular Filtration Rate > 60, BUN/Creatinine Ratio 8, Glucose Level 309H, Lactic Acid Level 2.00, Calcium Level 7.8L, Phosphorus Level 1.4L, Magnesium Level 1.8 10/13/18 06:29: Glucometer 273H 10/13/18 12:45: Glucometer 316H 10/13/18 16:41: Glucometer 202H Microbiology 10/11/18 Blood Culture - Preliminary, Resulted No growth 10/11/18 MRSA Screen - Final, Complete MRSA not isolated 10/11/18 Urine Culture - Final, Complete Proteus mirabilis Assessment/Plan Assessment/Plan Assess & Plan/Chief Complaint 1. Acute UTI with Sepsis--on IV meropenem 2. Paraplegia with Neurogenic Bladder--you catheter in place, urology consulted 3. Diabetes mellitus II--back on home meds as well as SSI Clinical Quality Measures DVT/VTE Risk/Contraindication: Risk Factor Score Per Nursin RFS Level Per Nursing on Admit: 4+=Very High CHELA PISANO DO Oct 13, 2018 20:30
--- NOTE | 2018-10-13 20:51 | Wound Care Assessment ---
Wound Care Assessment Date Seen by Provider: Oct 13, 2018 Time Seen by Provider: 18:20 Chief Complaint The patient is a 53 year old male with a Stage 3 pressure ulcer of the L lateral ankle, present on admission, in a setting of long-standing quadriplegia. He states that this is improving, that he is going home soon, and that his takes good care of his skin issues. Availability of consultation in the [facility]ound Center is offered. Current off-loading and dressing are acceptable. Will see again as needed. Smoking Status: Unknown if Ever Smoked Recreational Drug Use: No Alcohol Use: Denies Use Exam Vital Signs Date Time Temp Pulse Resp B/P (MAP) Pulse Ox O2 Delivery O2 Flow Rate FiO2 10/13/18 19:59 97.9 64 20 101/59 (73) 96 Room Air 10/12/18 22:15 3.00 Capillary Refill : Less Than 3 Seconds Results Laboratory Tests 10/13/18 03:40: White Blood Count 15.5H, Red Blood Count 3.57L, Hemoglobin 9.4L, Hematocrit 29L, Mean Corpuscular Volume 81, Mean Corpuscular Hemoglobin 26, Mean Corpuscular Hemoglobin Concent 33, Red Cell Distribution Width 15.7H, Platelet Count 170, Mean Platelet Volume 12.2H, Neutrophils (%) (Auto) 91H, Lymphocytes (%) (Auto) 4L, Monocytes (%) (Auto) 5, Eosinophils (%) (Auto) 0, Basophils (%) (Auto) 0, Neutrophils # (Auto) 14.2H, Lymphocytes # (Auto) 0.7L, Monocytes # (Auto) 0.7, Eosinophils # (Auto) 0.0, Basophils # (Auto) 0.0, Sodium Level 136, Potassium Level 4.3, Chloride Level 108H, Carbon Dioxide Level 19L, Anion Gap 9, Blood Urea Nitrogen 6L, Creatinine 0.71, Estimat Glomerular Filtration Rate > 60, BUN/Creatinine Ratio 8, Glucose Level 309H, Lactic Acid Level 2.00, Calcium Level 7.8L, Phosphorus Level 1.4L, Magnesium Level 1.8 10/13/18 06:29: Glucometer 273H 10/13/18 12:45: Glucometer 316H 10/13/18 16:41: Glucometer 202H Microbiology 10/11/18 Blood Culture - Preliminary, Resulted No growth 10/11/18 MRSA Screen - Final, Complete MRSA not isolated 10/11/18 Urine Culture - Final, Complete Proteus mirabilis LUNA ALFARO MD Oct 13, 2018 20:51
[2018-10-13] MEDS: ASPIRIN E.C. 81 MG (ECOTRIN) TAB PO SCH (21:21)
[2018-10-13] MEDS: TEMAZEPAM 15 MG (RESTORIL) CAP PO PRN (21:22)
[2018-10-14] VITALS (7 sets, daily range): BP systolic 94–135; BP diastolic 52–91
[2018-10-14] MEDS: MEROPENEM 500 MG in WATER (STERILE) FOR INJECTION 10 ML IV SCH ×2 (00:58→05:52)
--- NOTE | 2018-10-14 05:46 | Pulmonary Progress Note ---
Subjective Time Seen by a Provider: 05:45 Subjective/Events-last exam Pt appears to be improving Sepsis Event Evaluation Height, Weight, BMI Height: 6'0.00" Weight: 196lbs. 6.0oz. 89.566596ai; 26.6 BMI Method:Stated Focused Exam Lactate Level 10/12/18 17:37: Lactic Acid Level 1.09 10/13/18 03:40: Lactic Acid Level 2.00 10/14/18 02:10: Lactic Acid Level 1.84 Lactic Acid Level Laboratory Tests Test 10/14/18 02:10 Lactic Acid Level 1.84 MMOL/L (0.50-2.00) Exam Exam Vital Signs Date Time Temp Pulse Resp B/P (MAP) Pulse Ox O2 Delivery O2 Flow Rate FiO2 10/14/18 04:24 99.0 62 16 94/60 (71) 94 Room Air 10/14/18 01:00 55 10/14/18 00:06 98.6 70 18 105/67 (80) 96 Room Air 10/13/18 20:00 Nasal Cannula 2.00 10/13/18 19:59 97.9 64 20 101/59 (73) 96 Room Air 10/13/18 19:44 64 10/13/18 15:31 97.5 58 20 115/75 (88) 97 Room Air 10/13/18 08:00 96 NIV CPAP 10/13/18 08:00 67 10 109/81 (90) 96 Room Air 10/13/18 07:00 86 14 107/80 (89) 96 Room Air 10/13/18 07:00 86 10/13/18 06:00 67 17 131/74 (93) 93 Room Air I & O 10/14/18 07:00 Intake Total 1790 ml Output Total 1300 ml Balance 490 ml Height & Weight Height: 6'0.00" Weight: 196lbs. 6.0oz. 89.783861dn; 26.6 BMI Method:Stated General Appearance: No Apparent Distress HEENT: PERRL/EOMI, Normal ENT Inspection, Pharynx Normal, Moist Mucous Membranes Neck: Supple Respiratory: Lungs Clear Cardiovascular: Regular Rate, Rhythm Capillary Refill: Less Than 3 Seconds Gastrointestinal: normal bowel sounds, non tender, soft Extremity: Non Tender, No Calf Tenderness, No Pedal Edema Neurologic/Psychiatric: Alert, Oriented x3 Skin: Warm/Dry Lymphatic: No Adenopathy Results Lab Laboratory Tests 10/12/18 12:43 10/13/18 03:40 Assessment/Plan Assessment/Plan UTI with proteus-- improving -Merrem -- can be switched to PO -Await lord cultures atelectasis with hypoxia -IS -Monitor Anemia -monitor Paraplegic with chronic you JUAN with obesity -currently on home CPAP Pt is feeling better. He is wanting to go home today. From pulmonary standpoint he is ok for discharge. He is currently on RA. LIIBA SIMONS DO Oct 14, 2018 05:46
[2018-10-14] MEDS: BETHANECHOL 25 MG (URECHOLINE) TAB PO SCH ×4 (05:51→21:56)
[2018-10-14] MEDS: inSUlin ASPART (NovoLOG) 1 UNIT/0.01 ML (CHARGE PER UNIT) SC SCH ×4 (05:52→21:33)
[2018-10-14] MEDS: ENOXAPARIN 40 MG/0.4 ML (LOVENOX) SYR SC SCH (05:52)
[2018-10-14 06:09] LABS: BASOPHILS % (AUTO) 0 % (0-10); EOSINOPHILS # (AUTO) 0.1 10^3/uL (0.0-0.3); EOSINOPHILS % (AUTO) 1 % (0-10); HEMATOCRIT 28 % (40-54); HEMOGLOBIN 8.9 G/DL (13.3-17.7); LYMPHOCYTES # (AUTO) 1.7 X 10^3 (1.0-4.0); LYMPHOCYTES % (AUTO) 12 % (12-44); MEAN CORPUSCULAR HEMOGLOBIN 25 PG (25-34); MEAN CORPUSCULAR HGB CONC 32 G/DL (32-36); MEAN CORPUSCULAR VOLUME 79 FL (80-99); MEAN PLATELET VOLUME 11.8 FL (7.4-10.4); MONOCYTES % (AUTO) 7 % (0-12); NEUTROPHILS # (AUTO) 11.8 X 10^3 (1.8-7.8); NEUTROPHILS % (AUTO) 81 % (42-75); PLATELET COUNT 194 10^3/uL (130-400); RED CELL DISTRIBUTION WIDTH 15.8 % (10.0-14.5); WHITE BLOOD COUNT 14.6 10^3/uL (4.3-11.0)
[2018-10-14 06:30] LABS: BUN/CREATININE RATIO 11; CALCIUM 8.1 MG/DL (8.5-10.1); CARBON DIOXIDE 22 MMOL/L (21-32); CHLORIDE 109 MMOL/L (98-107); CREATININE SERUM 0.64 MG/DL (0.60-1.30); GFR ESTIMATED > 60; GLUCOSE 147 MG/DL (70-105); MAGNESIUM 1.6 MG/DL (1.8-2.4); PHOSPHORUS 3.3 MG/DL (2.3-4.7); POTASSIUM 3.8 MMOL/L (3.6-5.0); SODIUM 140 MMOL/L (135-145)
--- NOTE | 2018-10-14 08:07 | Diagnostic Imaging Report ---
INDICATION: Dyspnea. COMPARISON: 10/13/2018. FINDINGS: Stable right IJ central venous catheter. Unchanged enlargement of cardiac silhouette. Left basilar linear opacities have improved but persist. Persistent blunting of the lateral left costophrenic angle could relate to trace pleural effusion or subpleural atelectasis. No pneumothorax. IMPRESSION: 1. Improved aeration of left lung base with a small amount of residual atelectasis. 2. No adverse development. Dictated by: Dictated on workstation # [id number]
[2018-10-14] MEDS: PIOGLITAZONE 30MG (ACTOS) TAB PO SCH ×2 (08:39→21:56)
[2018-10-14] MEDS: BACLOFEN 10 MG (LIORESAL) TAB PO SCH ×3 (08:39→21:56)
[2018-10-14] MEDS: ASCORBIC ACID (VIT C) 500 MG TABLET PO SCH (08:39)
[2018-10-14] MEDS: metFORMIN 850 MG (GLUCOPHAGE) TAB PO SCH ×2 (08:39→21:56)
[2018-10-14] MEDS: cefTRIAXone 1,000 MG/SWFI 10 ML IV PUSH IV SCH ×2 (08:39)
[2018-10-14] MEDS: PANTOPRAZOLE 40 MG (PROTONIX) VIAL IV SCH (08:39)
[2018-10-14] MEDS: LINAGLIPTIN (TRADJENTA) 5 MG TABLET PO SCH (08:40)
[2018-10-14] MEDS: BISACODYL 10 MG SUPP (DULCOLAX) RC SCH (08:43)
--- NOTE | 2018-10-14 09:00 | NUR ---
REFUSED SUPP. STATES HE HAD GOOD BM YESTERDAY, FRANKLIN PATENT WITH CLEAR YELLOW URINE, HEEL PROTECTORS ON, ALLEYVN DRESSING DRY AND INTACT TO LEFT OUTER ANKLE
[2018-10-14] MEDS ORDERED: MAGNESIUM 1 GM/100 ML IVPB 100 ML IV NR (10:15)
--- NOTE | 2018-10-14 10:41 | Physician Query Clarification ---
PQ-Link Infection to Dev/Proc Admission/Discharge Admission Date: Oct 11, 2018 at 16:11 Discharge Date: The medical record reflects the following clinical scenario: History/Risk Factors: Paraplegic Chronic you catheter Neurogenic bladder Clinical Findings: Urine culture final-Protus mirabilis, Hematuria. Treatment: IV Rocephin, IV Vancomycin HCI and IV Meropenem. Question: Can you specify if the Severe sepsis/UTI is due to/associated with chronic you catheter? Please document a response in Progress Note or Discharge Summary. 1. Yes - [infection] is due to/associated with [device or procedure]. 2. No - [infection] is not due to/associated with [device or procedure]. 3. Other, with explanation of the clinical findings. 4. Clinically undetermined, no explanation for the clinical findings. PHYSICIAN RESPONSE Specify if infection: 1 Please remember a lack of response to the above will prompt a phone page by [facility]/Coding staff. In responding to this query, please exercise your independent professional judgment. The purpose of this communication is to more accurately reflect the complexity of your patients condition. The fact that a question is asked does not imply that any particular answer is desired or expected. Thank you for your timely response to this clarification. Requestors name: Ellie Vieira [facility] Phone # ext [phone] or [phone] THIS PHYSICIAN QUERY FORM IS A PERMANENT PART OF THE MEDICAL RECORD ELLIE VIEIRA Oct 14, 2018 10:41 YODIT THOMPSON DO Oct 14, 2018 10:52
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
--- NOTE | 2018-10-14 12:47 | Progress Note-Urology ---
Progress Note-Urology Progress Notes/Assess & Plan Progress/Assessment & Plan TOV IN AM TOMORROW Final Diagnosis URINE RETENTION BECCA EVANS MD Oct 14, 2018 12:47
[2018-10-14] MEDS: MAGNESIUM OXIDE (MAG-OX)400 MG TAB PO SCH (16:47)
[2018-10-14] MEDS: TAMSULOSIN 0.4 MG (FLOMAX) CAP PO SCH (16:47)
[2018-10-14] MEDS: DOCUSATE SODIUM 100 MG (COLACE) CAP PO SCH (16:47)
[2018-10-14] MEDS ORDERED: fluCOnazole (DIFLUCAN) 100 MG TAB PO NR (17:00)
--- NOTE | 2018-10-14 17:00 | Progress Note (SOAP) ---
Subjective Date Seen by a Provider: Oct 14, 2018 Time Seen by a Provider: 12:15 Subjective/Events-last exam Fwup UTI with sepsis, paraplegia with neurogenic bladder, DM II. Feeling better. Wants to go home. You catheter in place. Focused Exam Lactate Level 10/12/18 17:37: Lactic Acid Level 1.09 10/13/18 03:40: Lactic Acid Level 2.00 10/14/18 02:10: Lactic Acid Level 1.84 Objective Exam Vital Signs Date Time Temp Pulse Resp B/P (MAP) Pulse Ox O2 Delivery O2 Flow Rate FiO2 10/14/18 16:30 98.0 88 22 113/78 (90) 95 Room Air 10/14/18 13:00 77 10/14/18 12:00 98.5 69 18 135/91 (106) 94 Room Air 10/14/18 09:00 68 103/52 (69) 10/14/18 08:00 96 Nasal Cannula 2.00 10/14/18 07:00 61 10/14/18 04:24 99.0 62 16 94/60 (71) 94 Room Air 10/14/18 01:00 55 10/14/18 00:06 98.6 70 18 105/67 (80) 96 Room Air 10/13/18 20:00 Nasal Cannula 2.00 10/13/18 19:59 97.9 64 20 101/59 (73) 96 Room Air 10/13/18 19:44 64 I & O 10/14/18 07:00 Intake Total 1790 ml Output Total 1300 ml Balance 490 ml Capillary Refill : Less Than 3 Seconds General Appearance: No Apparent Distress Neck: Supple Respiratory: Lungs Clear Cardiovascular: Regular Rate, Rhythm Gastrointestinal: normal bowel sounds, non tender, soft Extremity: Non Tender, No Calf Tenderness, No Pedal Edema Neurologic/Psychiatric: Alert, Oriented x3 Skin: Warm/Dry Results Lab Laboratory Tests 10/13/18 20:48: Glucometer 244H 10/14/18 02:10: Lactic Acid Level 1.84 10/14/18 05:12: Glucometer 157H 10/14/18 05:56: White Blood Count 14.6H, Red Blood Count 3.53L, Hemoglobin 8.9L, Hematocrit 28L, Mean Corpuscular Volume 79L, Mean Corpuscular Hemoglobin 25, Mean Corpuscular Hemoglobin Concent 32, Red Cell Distribution Width 15.8H, Platelet Count 194, Mean Platelet Volume 11.8H, Neutrophils (%) (Auto) 81H, Lymphocytes (%) (Auto) 12, Monocytes (%) (Auto) 7, Eosinophils (%) (Auto) 1, Basophils (%) (Auto) 0, Neutrophils # (Auto) 11.8H, Lymphocytes # (Auto) 1.7, Monocytes # (Auto) 1.0, Eosinophils # (Auto) 0.1, Basophils # (Auto) 0.0, Sodium Level 140, Potassium Level 3.8, Chloride Level 109H, Carbon Dioxide Level 22, Anion Gap 9, Blood Urea Nitrogen 7, Creatinine 0.64, Estimat Glomerular Filtration Rate > 60, BUN/Creatinine Ratio 11, Glucose Level 147H, Calcium Level 8.1L, Phosphorus Level 3.3, Magnesium Level 1.6L 10/14/18 11:35: Glucometer 180H 10/14/18 16:13: Glucometer 245H Microbiology 10/11/18 Blood Culture - Preliminary, Resulted No growth 10/11/18 MRSA Screen - Final, Complete MRSA not isolated 10/11/18 Urine Culture - Final, Complete Proteus mirabilis Assessment/Plan Assessment/Plan Assess & Plan/Chief Complaint 1. Acute UTI with Sepsis--Proteus mirabilis--switched to rocephin, add diflucan due to history of yeast infection when on antibiotics 2. Paraplegia with Neurogenic Bladder--you catheter in place, urology consulted--will need to know if they want him discharged with indwelling you catheter or if he is to resume his [place] catheter regimen 3. Diabetes mellitus II--back on home meds as well as SSI but has been refusing insulin stating it makes him feel bad so blood sugars have been running high Clinical Quality Measures DVT/VTE Risk/Contraindication: Risk Factor Score Per Nursin RFS Level Per Nursing on Admit: 4+=Very High CHELA PISANO DO Oct 14, 2018 17:00
[2018-10-14] MEDS: ASPIRIN E.C. 81 MG (ECOTRIN) TAB PO SCH (21:56)
[2018-10-14] MEDS: TEMAZEPAM 15 MG (RESTORIL) CAP PO PRN (21:57)
[2018-10-15 03:21] VITALS: BP 123/83
[2018-10-15 05:15] LABS: BASOPHILS # (AUTO) 0.1 10^3/uL (0.0-0.1); BASOPHILS % (AUTO) 1 % (0-10); EOSINOPHILS # (AUTO) 0.1 10^3/uL (0.0-0.3); EOSINOPHILS % (AUTO) 2 % (0-10); HEMATOCRIT 29 % (40-54); HEMOGLOBIN 9.2 G/DL (13.3-17.7); LYMPHOCYTES # (AUTO) 1.9 X 10^3 (1.0-4.0); LYMPHOCYTES % (AUTO) 25 % (12-44); MEAN CORPUSCULAR HEMOGLOBIN 26 PG (25-34); MEAN CORPUSCULAR HGB CONC 32 G/DL (32-36); MEAN CORPUSCULAR VOLUME 80 FL (80-99); MEAN PLATELET VOLUME 11.8 FL (7.4-10.4); MONOCYTES # (AUTO) 0.5 X 10^3 (0.0-1.0); MONOCYTES % (AUTO) 6 % (0-12); NEUTROPHILS # (AUTO) 4.9 X 10^3 (1.8-7.8); NEUTROPHILS % (AUTO) 66 % (42-75); PLATELET COUNT 219 10^3/uL (130-400); RED CELL DISTRIBUTION WIDTH 15.6 % (10.0-14.5); WHITE BLOOD COUNT 7.4 10^3/uL (4.3-11.0)
[2018-10-15 05:35] LABS: BUN/CREATININE RATIO 11; CALCIUM 8.1 MG/DL (8.5-10.1); CARBON DIOXIDE 24 MMOL/L (21-32); CHLORIDE 109 MMOL/L (98-107); CREATININE SERUM 0.66 MG/DL (0.60-1.30); GFR ESTIMATED > 60; GLUCOSE 135 MG/DL (70-105); MAGNESIUM 1.6 MG/DL (1.8-2.4); PHOSPHORUS 3.8 MG/DL (2.3-4.7); POTASSIUM 3.7 MMOL/L (3.6-5.0); SODIUM 142 MMOL/L (135-145)
[2018-10-15] MEDS: inSUlin ASPART (NovoLOG) 1 UNIT/0.01 ML (CHARGE PER UNIT) SC SCH ×2 (05:42→11:50)
[2018-10-15] MEDS: BETHANECHOL 25 MG (URECHOLINE) TAB PO SCH ×2 (06:11→11:50)
[2018-10-15] MEDS: ENOXAPARIN 40 MG/0.4 ML (LOVENOX) SYR SC SCH (06:12)
--- NOTE | 2018-10-15 07:57 | Diagnostic Imaging Report ---
INDICATION: Dyspnea. Comparison with 10/14/2018. FINDINGS: There continues to be obscuration of left hemidiaphragm. Left upper lung is clear. Right lung is clear. Heart is mildly enlarged. Right central line unchanged. No evidence of pneumothorax. IMPRESSION: Persistent opacification left hemidiaphragm likely secondary to some atelectasis and pleural effusion. No acute changes noted. Dictated by: Dictated on workstation # [id number]
[2018-10-15 08:00] VITALS: BP 156/89
[2018-10-15] MEDS: BACLOFEN 10 MG (LIORESAL) TAB PO SCH ×2 (11:05→13:42)
[2018-10-15] MEDS: MAGNESIUM OXIDE (MAG-OX)400 MG TAB PO SCH (11:05)
[2018-10-15] MEDS: PIOGLITAZONE 30MG (ACTOS) TAB PO SCH (11:05)
[2018-10-15] MEDS: cefTRIAXone 1,000 MG/SWFI 10 ML IV PUSH IV SCH ×2 (11:05)
[2018-10-15] MEDS: LINAGLIPTIN (TRADJENTA) 5 MG TABLET PO SCH (11:05)
[2018-10-15] MEDS: metFORMIN 850 MG (GLUCOPHAGE) TAB PO SCH (11:05)
[2018-10-15] MEDS: ASCORBIC ACID (VIT C) 500 MG TABLET PO SCH (11:05)
[2018-10-15] MEDS: PANTOPRAZOLE 40 MG (PROTONIX) VIAL IV SCH (11:05)
[2018-10-15] MEDS: BISACODYL 10 MG SUPP (DULCOLAX) RC SCH (11:05)
[2018-10-15 12:00] VITALS: BP 156/87
--- NOTE | 2018-10-15 12:25 | Progress Note-Urology ---
Progress Note-Urology Progress Notes/Assess & Plan Progress/Assessment & Plan VOIDING [facility] INTO [place] CATHETER. WE WILL CHECK BLADDER SCAN PVR Final Diagnosis URINE RETENTION BECCA EVANS MD Oct 15, 2018 12:25
[2018-10-15] MEDS ORDERED: AMOX-355 PO (12:40)
[2018-10-15] MEDS ORDERED: TAMS0.4C98 PO (12:40)
[2018-10-15] MEDS ORDERED: Bethanechol Chl PO (12:40)
[2018-10-15] MEDS ORDERED: FLUC100T6 PO (12:40)
--- NOTE | 2018-10-15 12:42 | D/C HH Face to Face Order ---
D/C Face to Face Orders Instructions for Patient [facility], Patient Instructions/FollowUp: Fwup with me in 2 weeks Physician to follow Patient: Floyd Discharge Diet for Home: ADA Diet, Low Sodium Diet Patient Data-Allergies,Ht & Wt Patient Allergies: Coded Allergies: povidone-iodine (Verified Allergy, Unknown, 05/25/08) soap (Verified Allergy, Unknown, 05/25/08) Height (Feet): 6 Height (Inches): 0.00 Weight (Pounds): 196 Weight (Ounces): 6.0 Home Health Need/Face to Face Date of Face to Face: Oct 15, 2018 Clinical Findings: Muscle weakness, Non-healing wound I have seen Pt [id number]: Yes Discharged To: Home Diagnosis/Conditions: UTI with sepsis Left heel pressure ulcer Paraplegia with Neurogenic Bladder Patient is Homebound due to: Muscle weakness Homebound Status Due to the above stated illness, injury or surgical procedure (medical condition or diagnosis) and associated clinical findings, the patient is homebound because of his/her inability to leave home except with aid of a supportive device and/or person AND leaving the home requires a considerable and taxing effort or is medically contraindicated. Pt req the following assistanc: Wheelchair Home Health Nursing Orders Home Health Services Order: Nursing Services Home Health Infusion Therapy Line Start Date: Oct 11, 2018 Certify Stmt I certify that this patient is under my care and that I, a nurse practitioner or a physician; a trading assistant working with me, had a face to face encounter that - meets the physician face to face encounter requirements with this patient as dated. CHELA PISANO DO Oct 15, 2018 12:42
--- NOTE | 2018-10-15 13:45 | NUR ---
CM/SS patient discharging this day. He stated that he had HHC with [facility] and it will just need resumed. Faxed paperwork to [facility] for resumption. Patient uses a power chair and has no transportation home, he was hoping to use the [facility]. Called [facility] and they can transport this day possibly if before 1500.
--- NOTE | 2018-10-15 15:16 | Pulmonary Progress Note ---
Subjective Time Seen by a Provider: 15:16 Subjective/Events-last exam No complications noted. Sepsis Event Evaluation Height, Weight, BMI Height: 6'0.00" Weight: 196lbs. 6.0oz. 89.127466ew; 26.6 BMI Method:Stated Focused Exam Lactate Level 10/12/18 17:37: Lactic Acid Level 1.09 10/13/18 03:40: Lactic Acid Level 2.00 10/14/18 02:10: Lactic Acid Level 1.84 Exam Exam Vital Signs Date Time Temp Pulse Resp B/P (MAP) Pulse Ox O2 Delivery O2 Flow Rate FiO2 10/15/18 13:00 65 10/15/18 12:00 97.3 68 18 156/87 (110) 94 Room Air 10/15/18 08:00 97.0 62 18 156/89 (111) 94 Room Air 10/15/18 07:00 65 10/15/18 03:21 98.2 70 16 123/83 (96) 93 NIV CPAP 10/15/18 01:00 68 10/14/18 23:19 98.9 66 18 110/71 (84) 94 NIV CPAP 10/14/18 20:00 96 Nasal Cannula 2.00 10/14/18 19:45 98.8 71 18 99/63 (75) 95 Room Air 10/14/18 19:00 72 10/14/18 16:30 98.0 88 22 113/78 (90) 95 Room Air I & O 10/15/18 07:00 Intake Total 2270 ml Output Total 2125 ml Balance 145 ml Height & Weight Height: 6'0.00" Weight: 196lbs. 6.0oz. 89.764866vj; 26.6 BMI Method:Stated General Appearance: No Apparent Distress HEENT: PERRL/EOMI, Normal ENT Inspection, Pharynx Normal, Moist Mucous Membranes Neck: Supple Respiratory: Lungs Clear Cardiovascular: Regular Rate, Rhythm Capillary Refill: Less Than 3 Seconds Gastrointestinal: normal bowel sounds, non tender, soft Extremity: Non Tender, No Calf Tenderness, No Pedal Edema Neurologic/Psychiatric: Alert, Oriented x3 Skin: Warm/Dry Lymphatic: No Adenopathy Results Lab Laboratory Tests 10/14/18 05:56 10/15/18 05:00 Assessment/Plan Assessment/Plan UTI with proteus-- improving -Rocephin -Await lord cultures atelectasis with hypoxia - improved now on RA -IS -Monitor Anemia -monitor Paraplegic with chronic oyu JUAN with obesity -currently on home CPAP LIBIA SIMONS DO Oct 15, 2018 15:16
[2018-10-15 16:23] VITALS: BP 125/79
[2018-10-15] MEDS ORDERED: fluCOnazole (DIFLUCAN) 100 MG TAB PO SCH (17:00)
--- NOTE | 2018-10-16 18:49 | Procedure/Intervention Note ---
Procedures/Interventions Lumen: triple Central Line Procedure: betadine prep (chlorhexidine prep), sterile drapes applied, sterile dressing applied Position: internal jugular (R) Anesthesia: Lidocaine (1% without epinephrine) Volume Anesthetic (ccs): 3 Complications: none Post Position: sutured, good blood return, position confirmed w/ CXR 10/11/18 7280: ICU Consent was obtained because of hypotension and the patient was alert and oriented through the whole procedure. No ectopy was noted on the monitor at any time. The patient was ascertained to have good access to the IJ on the right side using ultrasound so we cleaned his neck off using chlorhexidine preps and on the usual sterile gear. We draped the patient out appropriately and then using the introducer needle and ultrasound guidance we accessed the right IJ. Good return and flushed so a guidewire was easily passed. A small adrian in the skin was made with an 11 blade scalpel. With the introducer needle was then removed. We laced the dilator along the guidewire and back out. We then placed the central lumen of the flushed triple lumen 15 centimeter central line on the guidewire and threaded it in place at 13.5 cm. We stitched in place using the supplied suture and applied a Biopatch. We then applied a sterile dressing. The triple-lumen flushed and withdrew easily. The patient tolerated procedure well. Chest x-ray demonstrated good placement on the right side of the superior vena cava without evidence of pneumothorax. JULIÁN KHAN Oct 16, 2018 18:49
== END 2018-10-15 17:25 | disposition home health service (06) | DRG 698 ==
LOC: EDUNIT# 14:07 → ER 14:08 → ICU 16:11 → 4TH 10-13 08:23
PROVIDERS: ADMIT Internal Medicine; ATTEND Internal Medicine
PROC: 02HV33Z Insertion of Infusion Device into Superior Vena Cava, Percutaneous Approach (ICD-10-PCS; principal; 2018-10-11)
DX: T83.511A Infection and inflammatory reaction due to indwelling urethral catheter, initial encounter (principal); A41.89 Other specified sepsis; R65.20 Severe sepsis without septic shock; N30.01 Acute cystitis with hematuria; B96.4 Proteus (mirabilis) (morganii) as the cause of diseases classified elsewhere; G82.20 Paraplegia, unspecified; L89.523 Pressure ulcer of left ankle, stage 3; J98.11 Atelectasis; E87.2 Acidosis; N31.9 Neuromuscular dysfunction of bladder, unspecified; R33.8 Other retention of urine; E66.9 Obesity, unspecified; J44.9 Chronic obstructive pulmonary disease, unspecified; G47.33 Obstructive sleep apnea (adult) (pediatric); R09.02 Hypoxemia; E11.9 Type 2 diabetes mellitus without complications; D64.9 Anemia, unspecified; E83.42 Hypomagnesemia; K21.9 Gastro-esophageal reflux disease without esophagitis; M19.91 Primary osteoarthritis, unspecified site; M54.9 Dorsalgia, unspecified; M43.6 Torticollis; M62.838 Other muscle spasm; Z68.26 Body mass index [BMI] 26.0-26.9, adult; Z87.891 Personal history of nicotine dependence; V89.9XXS Person injured in unspecified vehicle accident, sequela
CPT/HCPCS: 36415; 51702; 71045; 80048; 80053; 81000; 82962; 83605; 83735; 83880; 84100; 85007; 85025; 85027; 85652; 87040; 87077; 87081; 87088; 87186; 93005; 96361; 96365; 96375

== ENCOUNTER → 2018-10-28 | Outpatient (CLI) | payer MEDICAID ==
[~2018-10-28] MED LIST changes: +AMOX-355 PO; +Bethanechol Chl PO; +FLUC100T6 PO; +TAMS0.4C98 PO
== END ==
LOC: LAB FS 11:35
PROVIDERS: ATTEND Family Medicine
DX: S91.302A Unspecified open wound, left foot, initial encounter (principal); G82.50 Quadriplegia, unspecified
CPT/HCPCS: 87070; 87205

== ENCOUNTER 2018-12-08 14:36 | Emergency (ER) | payer MEDICAID ==
[~2018-12-08] VITALS: Ht 182.9 cm; Wt 81.6 kg
[~2018-12-08 14:36] MED LIST changes: -BISA10SU6 RC; +BISA10SU8 RC; -PIOG1TAB18 PO; +PIOG1TAB30 PO
[2018-12-08 15:52] LABS: BASOPHILS # (AUTO) 0.1 10^3/uL (0.0-0.1); BASOPHILS % (AUTO) 1 % (0-10); EOSINOPHILS # (AUTO) 0.2 10^3/uL (0.0-0.3); EOSINOPHILS % (AUTO) 2 % (0-10); HEMATOCRIT 38 % (40-54); HEMOGLOBIN 12.1 G/DL (13.3-17.7); LYMPHOCYTES # (AUTO) 1.5 X 10^3 (1.0-4.0); LYMPHOCYTES % (AUTO) 17 % (12-44); MEAN CORPUSCULAR HEMOGLOBIN 25 PG (25-34); MEAN CORPUSCULAR HGB CONC 32 G/DL (32-36); MEAN CORPUSCULAR VOLUME 78 FL (80-99); MEAN PLATELET VOLUME 11.1 FL (7.4-10.4); MONOCYTES # (AUTO) 0.6 X 10^3 (0.0-1.0); MONOCYTES % (AUTO) 6 % (0-12); NEUTROPHILS # (AUTO) 6.7 X 10^3 (1.8-7.8); NEUTROPHILS % (AUTO) 75 % (42-75); PLATELET COUNT 285 10^3/uL (130-400); RED CELL DISTRIBUTION WIDTH 15.7 % (10.0-14.5)
--- NOTE | 2018-12-08 16:09 | Diagnostic Imaging Report ---
INDICATION: Shortness of breath and lightheadedness. Frontal chest obtained at 3:57 p.m. and compared to 10/15/2018. FINDINGS: Heart is borderline in size. There is no consolidation, pneumothorax, or pleural fluid. There is some linear scarring versus atelectasis in the left perihilar region. There is some chronic blunting of the left costophrenic angle. IMPRESSION: Borderline heart size with no consolidation or edema. There is some linear scarring or atelectasis in the left perihilar region. There is chronic blunting of the left costophrenic angle. Dictated by: Dictated on workstation # [id number]
[2018-12-08 16:14] LABS: CARBON DIOXIDE 20 MMOL/L (21-32); CHLORIDE 105 MMOL/L (98-107); CREATININE SERUM 0.72 MG/DL (0.60-1.30); SODIUM 139 MMOL/L (135-145)
[2018-12-08 16:15] LABS: ALANINE AMINOTRANSFERASE 17 U/L (0-55); ALBUMIN 4.3 GM/DL (3.2-4.5); ALKALINE PHOSPHATASE 64 U/L (40-136); BILIRUBIN,TOTAL 0.4 MG/DL (0.1-1.0); BUN/CREATININE RATIO 13; CALCIUM 9.7 MG/DL (8.5-10.1); GFR ESTIMATED > 60; GLUCOSE 113 MG/DL (70-105); TOTAL PROTEIN 8.2 GM/DL (6.4-8.2)
--- NOTE | 2018-12-08 17:37 | Diagnostic Imaging Report ---
PROCEDURE: CT angiography of the chest with contrast. TECHNIQUE: Multiple contiguous axial images were obtained through the chest after uneventful bolus administration of intravenous contrast. 3D reconstructed CTA MIP acquisitions were also performed. Auto Exposure Controls were utilized during the CT exam to meet ALARA standards for radiation dose reduction. INDICATION: Dyspnea with elevated D-dimer and lightheadedness. FINDINGS: There is good opacification of the pulmonary arteries without intraluminal filling defect identified. Thoracic aorta is of normal caliber without evidence of aneurysm or dissection. There is no significant pleural or pericardial fluid. There is mild ground-glass opacity throughout the lungs, which may be due to mild edema or pneumonitis. There is no significant pleural or pericardial fluid. Note is made of opacification of numerous chest wall collaterals which may be related to stenosis or occlusion of left brachiocephalic vein. IMPRESSION: No evidence of pulmonary embolism or other acute abnormality in the great vessels of the mediastinum, although there may be stenosis or occlusion of left brachiocephalic vein. Mild ground-glass density in the lungs would be compatible with edema or pneumonitis. Dictated by: Dictated on workstation # [id number]
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
[2018-12-08] MEDS ORDERED: APIX5TAB PO (18:02)
[2018-12-08 18:39] LABS: PROTHROMBIN TIME PATIENT 13.2 SEC (12.2-14.7)
[2018-12-08 18:44] VITALS: BP 125/86
== END 2018-12-08 18:44 | disposition home or self-care (01) ==
LOC: EDUNIT# 14:36 → ER 14:40
DX: R79.1 Abnormal coagulation profile (principal); G47.30 Sleep apnea, unspecified; J44.9 Chronic obstructive pulmonary disease, unspecified; K21.9 Gastro-esophageal reflux disease without esophagitis; E11.9 Type 2 diabetes mellitus without complications; Z87.440 Personal history of urinary (tract) infections; Z91.041 Radiographic dye allergy status; Z79.84 Long term (current) use of oral hypoglycemic drugs
CPT/HCPCS: 36415; 71045; 71275; 80053; 85025; 85379; 85610; 85730

== ENCOUNTER → 2018-12-23 | Outpatient (CLI) | payer MEDICAID ==
[~2018-12-23] MED LIST changes: +APIX5TAB PO
== END ==
LOC: CARD 08:37
PROVIDERS: ATTEND Family Medicine
DX: R06.00 Dyspnea, unspecified (principal); R07.9 Chest pain, unspecified
CPT/HCPCS: 93306

== ENCOUNTER 2019-12-08 08:29 | Inpatient (IN) | payer MEDICAID ==
[~2019-12-08] VITALS: Ht 182.9 cm; Wt 81.1 kg
[~2019-12-08 08:29] MED LIST changes: -TAMS0.4C98 PO; +TMSL.4C PO
[2019-12-08] MEDS ORDERED: ALPRAZolam 0.25 MG (XANAX) TAB PO PRN (10:30)
[2019-12-08] MEDS ORDERED: PATIENT MAY USE OWN MEDS, ALL PO SCH (10:30)
[2019-12-08] MEDS ORDERED: ACETAMINOPHEN 325 MG TABLET PO PRN (10:30)
--- NOTE | 2019-12-08 10:40 | History & Physical ---
History of Present Illness History of Present Illness Reason for visit/HPI This is a 54 year old quadriplegic male with a chronic indwelling you catheter who has a history of recurrent urinary tract infections who was found to have pseudomonas in his urine which was only sensitive to IV antibiotic therapy. He will be admitted for 3 days of IV antibiotic therapy. Date of Admission Date Seen by a Provider: Dec 08, 2019 Time Seen by a Provider: 10:35 I consulted on this patient on 12/08/19 10:35 Attending Physician Denia Barrientos DO Admitting Physician Denia Barrientos DO Consult Allergies and Home Medications Allergies Coded Allergies: povidone-iodine (Verified Allergy, Unknown, 05/25/08) soap (Verified Allergy, Unknown, 05/25/08) Home Medications Amoxicillin/Potassium Clav 1 Each Tablet, 1 EACH PO BID Prescribed by: DENIA BARRIENTOS on 10/15/18 1240 Apixaban 5 Mg Tablet, 5 MG PO BID Prescribed by: ELIJAH DUMONT on 12/08/18 1802 Ascorbate Calcium 500 Mg Tablet, 500 MG PO DAILY, (Reported) Aspirin 81 Mg Tablet.dr, 81 MG PO HS, (Reported) Baclofen 20 Mg Tablet, 20 MG PO TID, (Reported) Bisacodyl 10 Mg Supp.rect, 10 MG RC DAILY, (Reported) Cranberry Conc/Ascorbic Acid 1 Each Capsule, 1 CAP PO DAILY, (Reported) Docusate Sodium 100 Mg Capsule, 100 MG PO 1900, (Reported) Fluconazole 100 Mg Tablet, 100 MG PO DAILY@1700 Prescribed by: DENIA BARRIENTOS on 10/15/18 1240 Lansoprazole 30 Mg Capsule.dr, 30 MG PO DAILY PRN for HEARTBURN, (Reported) Pioglitazone HCl/Metformin HCl 1 Each Tablet, 1 TAB PO BID, (Reported) Sitagliptin Phosphate 100 Mg Tablet, 100 MG PO DAILY, (Reported) Tamsulosin HCl 0.4 Mg Cap, 0.4 MG PO DAILY@1800 Prescribed by: DENIA BARRIENTOS on 10/15/18 1240 [Bethanechol Chl] 25 MG TAB, 25 MG PO ACHS Prescribed by: DENIA BARRIENTOS on 10/15/18 1240 Patient Home Medication List Home Medication List Reviewed: Yes Past Rjfmonm-Gtzclz-Oihgnc Hx Past Med/Social Hx: Reviewed Nursing Past Med/Soc Hx Patient Social History Type Used: Cigarettes 2nd Hand Smoke Exposure: No Recent Hopitalizations: No Immunizations Up To Date Date of Pneumonia Vaccine: Jan 30, 2019 Date of Influenza Vaccine: Feb 05, 2018 Past Medical History Surgeries: Orthopedic Currently Using CPAP: Yes Neurological: Paralysis Reproductive: No Genitourinary: Kidney Infection, Bladder Infection, Neurogenic Bladder, UTI- Chronic Gastrointestinal: Gastroesophageal Reflux Musculoskeletal: Arthritis, Chronic Back Pain Endocrine: Diabetes, Non-Insulin dep History of Blood Disorders: No Review of Systems Constitutional: weakness EENTM: No see HPI, No no symptoms reported, No ear discharge, No hearing loss, No ear pain, No blurred vision, No double vision, No eye pain, No tearing, No vision loss, No dental problems, No hoarseness, No mouth pain, No mouth swelling, No epistaxis, No nose congestion, No nose pain, No throat pain, No throat swelling, No other Respiratory: No no symptoms reported, No see HPI, No cough, No dyspnea on exertion, No hemoptysis, No orthopnea, No phlegm, No short of breath, No stridor, No wheezing, No other Cardiovascular: No no symptoms reported, No see HPI, No chest pain, No edema, No Hx of Intervention, No palpitations, No syncope, No vascular heart diseas, No other Gastrointestinal: constipation Genitourinary: other (chronic indwelling you catheter) Musculoskeletal: muscle cramps, muscle twitching, muscle weakness Skin: No no symptoms reported, No see HPI, No change in color, No change in hair/nails, No dryness, No hx of skin cancer, No lesions, No lumps, No pruritus, No rash, No other Psychiatric/Neurological: Numbness, Pre-Existing Deficit, Weakness Physical Exam Vital Signs Capillary Refill : Height, Weight, BMI Height: 6'0" Weight: 180lbs. 6.0oz. 81.874597jb; 26.6 BMI Method:Stated General Appearance: No Apparent Distress Neck: Supple Respiratory: Lungs Clear Cardiovascular: Regular Rate, Rhythm, Gallop/S4 Gastrointestinal: Normal Bowel Sounds, Non Tender, Soft, Distended Rectal: Deferred Back: No CVA Tenderness Extremity: Non Tender, No Calf Tenderness, No Pedal Edema Neurologic/Psychiatric: Alert, Oriented x3, Motor Weakness (quadriplegic in wheelchair) Skin: Warm/Dry Assessment/Plan Assessment and Plan 1. UTI with Pseudomonas--admit and treat with IV zosyn 2. Neurogenic Bladder with Chronic Indwelling You Catheter 3. Diabete mellitus II--start accuchecks with SSI and home meds 4. Quadriplegia with Muscle Spasticity--resume baclofen Admission Diagnosis Admission Status: Inpatient Order (span 2 midnights) Reason for Inpatient Admission: Needs 3 days of IV antibiotics DENIA BARRIENTOS DO Dec 08, 2019 10:40
[2019-12-08] MEDS ORDERED: PIPERACILLIN/TAZO 4.5 GM/NS 100 ML IV NR ×2 (11:12)
--- OUTSIDE RECORDS SUMMARY | 2019-12-08 11:16 | XMS REPORT | Continuity of Care Document ---
Author Organization Unknown Address Unknown Phone Unavailable Allergies There is no data. Medications There is no data. Problems There is no data. Procedures There is no data. Results There is no data. Encounters ACCT No. Visit Date/Time Discharge Status Pt. Type Provider Facility Loc./Unit Complaint [id number] 01/25/2015 09:29:31 [facility] Document Registration
--- NOTE | 2019-12-08 11:20 | NUR ---
KENNETH HERRERA admitted to room 427-1, with an admitting diagnosis of UTI, on 12/08/19, accompanied by STAFF. KENNETH HERRERA introduced to surroundings, call light, bed controls, phone, TV, temperature control, lights, meal times, smoking policy, visitor policy, side rail policy, bathrooms and showers. Patient Rights given to patient in the handbook. KENNETH HERRERA verbalizes understanding that [facility] is not responsible for the loss or damage to any personal effects or valuables that are kept in the patients posession during their hospitalization. KENNETH HERRERA verbalizes understanding of Interdisciplinary Patient Education. Patient and/or family were informed about the Rapid Response Team and its purpose.
[2019-12-08 11:57] LABS: BASOPHILS # (AUTO) 0.1 10^3/uL (0.0-0.1); BASOPHILS % (AUTO) 1 % (0-10); EOSINOPHILS # (AUTO) 0.3 10^3/uL (0.0-0.3); EOSINOPHILS % (AUTO) 3 % (0-10); HEMATOCRIT 37 % (40-54); HEMOGLOBIN 12.4 G/DL (13.3-17.7); LYMPHOCYTES # (AUTO) 1.3 X 10^3 (1.0-4.0); LYMPHOCYTES % (AUTO) 16 % (12-44); MEAN CORPUSCULAR HEMOGLOBIN 26 PG (25-34); MEAN CORPUSCULAR HGB CONC 33 G/DL (32-36); MEAN CORPUSCULAR VOLUME 79 FL (80-99); MEAN PLATELET VOLUME 11.5 FL (7.4-10.4); MONOCYTES # (AUTO) 0.4 X 10^3 (0.0-1.0); MONOCYTES % (AUTO) 4 % (0-12); NEUTROPHILS # (AUTO) 6.4 X 10^3 (1.8-7.8); NEUTROPHILS % (AUTO) 76 % (42-75); PLATELET COUNT 237 10^3/uL (130-400); RED CELL DISTRIBUTION WIDTH 15.7 % (10.0-14.5); WHITE BLOOD COUNT 8.3 10^3/uL (4.3-11.0)
[2019-12-08 12:00] VITALS: BP 93/60
[2019-12-08 12:11] LABS: ALANINE AMINOTRANSFERASE 14 U/L (0-55); ALBUMIN 4.1 GM/DL (3.2-4.5); ALKALINE PHOSPHATASE 52 U/L (40-136); BILIRUBIN,TOTAL 0.5 MG/DL (0.1-1.0); BUN/CREATININE RATIO 17; CARBON DIOXIDE 18 MMOL/L (21-32); CHLORIDE 104 MMOL/L (98-107); CREATININE SERUM 0.64 MG/DL (0.60-1.30); GFR ESTIMATED > 60; GLUCOSE 112 MG/DL (70-105); POTASSIUM 4.5 MMOL/L (3.6-5.0); SODIUM 136 MMOL/L (135-145); TOTAL PROTEIN 7.6 GM/DL (6.4-8.2)
[2019-12-08] MEDS: inSUlin ASPART (NovoLOG) 1 UNIT/0.01 ML (CHARGE PER UNIT) SC SCH ×4 (12:40→21:34)
[2019-12-08] MEDS ORDERED: TMSL.4C PO (13:17)
[2019-12-08] MEDS ORDERED: ASPI325T32 PO (13:17)
[2019-12-08] MEDS ORDERED: BETH25TA11 PO (13:17)
[2019-12-08] MEDS ORDERED: BUSP7.5T5 PO (13:17)
[2019-12-08] MEDS ORDERED: ALPR0.254 PO (13:17)
[2019-12-08] MEDS ORDERED: NITR100C10 PO (13:17)
[2019-12-08] MEDS ORDERED: MULT-1136 PO (13:17)
[2019-12-08] MEDS ORDERED: CHOL10002 PO (13:17)
[2019-12-08 13:49] LABS: BILIRUBIN,URINE NEGATIVE (NEGATIVE); CLARITY,URINE CLEAR; COLOR,URINE YELLOW; GLUCOSE, URINE (UA) NEGATIVE (NEGATIVE); KETONES,URINE NEGATIVE (NEGATIVE); LEUKOCYTE ESTERASE ,URINE NEGATIVE (NEGATIVE); NITRITE,URINE NEGATIVE (NEGATIVE); PROTEIN,URINE NEGATIVE (NEGATIVE)
[2019-12-08 13:56] LABS: BACTERIA,URINE NEGATIVE /HPF; WBC,URINE RARE /HPF
--- NOTE | 2019-12-08 14:11 | NUR ---
DR PISANO NOTIFIED OF UA AND BLADDER SCAN RESULTS
--- NOTE | 2019-12-08 14:15 | NUR ---
SPOKE WITH THE PT AND WENT THRU THE EXT MED HISTORY TO COMPLETE THE MED REC PT WAS ABLE TO NAME ALL HIS MEDICATIONS WELL WHEN/HOW HE TAKES EACH BISACODYL 10MG RECT SUPP- DIRECTIONS SHOW 1 SUPP BID BUT PT IS ONLY USING 1 SUPP EVERY OTHER DAY BUSPAR 7.5MG- DIRECTIONS 1 TAB BID BUT PT ONLY TAKES 1 TAB DAILY NITROFURANTOIN- PT TAKES DAILY FOR UTI PREVENTION OTC MEDS: ASPIRIN 325MG VIT C VIT D CRANBERRY DOCUSATE [employer]
[2019-12-08] MEDS: BACLOFEN 10 MG (LIORESAL) TAB PO SCH ×2 (15:09→21:13)
[2019-12-08] MEDS: ENOXAPARIN 40 MG/0.4 ML (LOVENOX) SYR SC SCH (15:09)
[2019-12-08 15:36] VITALS: BP 93/60
[2019-12-08 15:40] VITALS: BP 116/76
[2019-12-08] MEDS: metFORMIN XR 500 MG (GLUCOPHAGE XR) TAB PO SCH (16:43)
[2019-12-08] MEDS: BETHANECHOL 25 MG (URECHOLINE) TAB PO SCH ×2 (16:43→21:13)
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
[2019-12-08] MEDS: TAMSULOSIN 0.4 MG (FLOMAX) CAP PO SCH (17:58)
[2019-12-08 19:05] VITALS: BP 152/84
[2019-12-08 23:30] VITALS: BP 105/57
[2019-12-08] MEDS: PIPERACILLIN/TAZOBACTAM (BULK) 4.5 GM in NS (IVPB) 100 ML IV SCH (23:36)
[2019-12-09 04:30] VITALS: BP 137/69
[2019-12-09] MEDS: BETHANECHOL 25 MG (URECHOLINE) TAB PO SCH ×4 (05:50→22:13)
[2019-12-09] MEDS: inSUlin ASPART (NovoLOG) 1 UNIT/0.01 ML (CHARGE PER UNIT) SC SCH ×4 (05:52→21:12)
[2019-12-09] MEDS: metFORMIN XR 500 MG (GLUCOPHAGE XR) TAB PO SCH ×2 (05:52→16:26)
[2019-12-09] MEDS: PIOGLITAZONE 30MG (ACTOS) TAB PO SCH (05:52)
[2019-12-09] MEDS: PIPERACILLIN/TAZOBACTAM (BULK) 4.5 GM in NS (IVPB) 100 ML IV SCH ×3 (07:45→23:54)
[2019-12-09 08:00] VITALS: BP 125/83
[2019-12-09] MEDS: fluCOnazole (DIFLUCAN) 100 MG TAB PO SCH (08:47)
[2019-12-09] MEDS: BACLOFEN 10 MG (LIORESAL) TAB PO SCH ×3 (08:47→22:13)
[2019-12-09 12:00] VITALS: BP 120/71
[2019-12-09] MEDS: ENOXAPARIN 40 MG/0.4 ML (LOVENOX) SYR SC SCH (12:10)
--- NOTE | 2019-12-09 14:36 | Physician Query Clarification ---
PQ-Link Infection to Dev/Proc Admission/Discharge Admission Date: Dec 08, 2019 at 11:06 Discharge Date: The medical record reflects the following clinical scenario: Dr. Barrientos, History/Risk Factors: Quadriplegia Neurogenic bladder UTI Chronic indwelling you catheter Clinical Findings:Patient was found to have pseudomonas in his urine which was sensitive to IV antibiotic therapy. Treatment:IV Zosyn 4.5 gm. Question: Can you specify if the UTI is due to/associated with the chronic indwelling you catheter? Please document a response in Progress Note or Discharge Summary. 1. Yes - UTI is due to/associated with chronic indwelling you catheter. 2. No - UTI is not due to/associated with chronic indwelling you catheter. 3. Other, with explanation of the clinical findings. 4. Clinically undetermined, no explanation for the clinical findings. PHYSICIAN RESPONSE Specify if infection: 1 Please remember a lack of response to the above will prompt a phone page by [facility] /Coding staff. In responding to this query, please exercise your independent professional judgment. The purpose of this communication is to more accurately reflect the complexity of your patients condition. The fact that a question is asked does not imply that any particular answer is desired or expected. Thank you for your timely response to this clarification. Requestors name: Ellie Vieira [facility] Phone # ext [phone] or [phone] THIS PHYSICIAN QUERY FORM IS A PERMANENT PART OF THE MEDICAL RECORD ELLIE VIEIRA Dec 09, 2019 14:36 CHELA BARRIENTOS DO Dec 09, 2019 17:28
[2019-12-09 15:22] VITALS: BP 125/85
[2019-12-09] MEDS: TAMSULOSIN 0.4 MG (FLOMAX) CAP PO SCH (16:26)
--- NOTE | 2019-12-09 17:34 | Progress Note ---
Subjective Date Seen by a Provider: Dec 09, 2019 Time Seen by a Provider: 12:35 Subjective/Events-last exam Fwup UTI, neurogenic bladder, DMII, quadriplegia. Urine is clearing up but did have to have you inserted because had residual with his chronic [place] catheter. Objective Exam Vital Signs Date Time Temp Pulse Resp B/P (MAP) Pulse Ox O2 Delivery O2 Flow Rate FiO2 12/09/19 15:22 37.0 70 18 125/85 (98) 97 Room Air 12/09/19 12:00 36.8 73 18 120/71 (87) 97 NIV CPAP 12/09/19 08:00 36.8 69 18 125/83 (97) 100 NIV CPAP 12/09/19 08:00 Room Air 12/09/19 04:30 37.0 52 20 137/69 (91) 96 NIV CPAP 12/08/19 23:30 36.6 71 20 105/57 (73) 96 Room Air 12/08/19 20:30 96 Room Air 12/08/19 19:05 152/84 (106) I & O 12/09/19 07:00 Intake Total 4045 ml Output Total 2925 ml Balance 1120 ml Capillary Refill : Less Than 3 Seconds General Appearance: No Apparent Distress Respiratory: Lungs Clear Cardiovascular: Regular Rate, Rhythm Gastrointestinal: normal bowel sounds, non tender, soft Extremity: Non Tender, No Calf Tenderness, No Pedal Edema Neurologic/Psychiatric: Alert, Oriented x3 Results Lab Laboratory Tests 12/08/19 18:02: Glucometer 78 Assessment/Plan Assessment/Plan Assess & Plan/Chief Complaint 1. UTI with Pseudomonas--on zosyn 2. Neurogenic Bladder--increase urecholine to 50mg QID 3. DMII--on home meds with accuchecks and SSI Clinical Quality Measures Admission Status Admission Dx 1. UTI with Pseudomonas--admit and treat with IV zosyn 2. Neurogenic Bladder with Chronic Indwelling You Catheter 3. Diabete mellitus II--start accuchecks with SSI and home meds 4. Quadriplegia with Muscle Spasticity--resume baclofen DVT/VTE Risk/Contraindication: Risk Factor Score Per Nursin RFS Level Per Nursing on Admit: 4+=Very High CHELA PISANO DO Dec 09, 2019 17:34
[2019-12-09 19:39] VITALS: BP 134/91
[2019-12-09] MEDS ORDERED: DOCUSATE SODIUM 100 MG (COLACE) CAP PO SCH (21:00)
[2019-12-09] MEDS ORDERED: BISACODYL 10 MG SUPP (DULCOLAX) PR SCH (21:15)
[2019-12-10 00:20] VITALS: BP 124/77
[2019-12-10 04:32] VITALS: BP 142/72
[2019-12-10] MEDS: inSUlin ASPART (NovoLOG) 1 UNIT/0.01 ML (CHARGE PER UNIT) SC SCH ×3 (06:40→17:26)
[2019-12-10] MEDS: PIOGLITAZONE 30MG (ACTOS) TAB PO SCH (06:40)
[2019-12-10] MEDS: BETHANECHOL 25 MG (URECHOLINE) TAB PO SCH ×3 (06:40→17:35)
[2019-12-10] MEDS: metFORMIN XR 500 MG (GLUCOPHAGE XR) TAB PO SCH ×2 (06:40→17:27)
[2019-12-10 08:00] VITALS: BP 118/55
[2019-12-10] MEDS: PIPERACILLIN/TAZOBACTAM (BULK) 4.5 GM in NS (IVPB) 100 ML IV SCH ×2 (08:50→17:26)
[2019-12-10] MEDS: LACTOBACILLUS ACIDOPHILUS (PROBIOTIC) CAPSULE PO SCH ×2 (08:50→12:00)
[2019-12-10] MEDS: fluCOnazole (DIFLUCAN) 100 MG TAB PO SCH (08:50)
[2019-12-10] MEDS: BACLOFEN 10 MG (LIORESAL) TAB PO SCH ×2 (08:51→12:59)
[2019-12-10 12:00] VITALS: BP 136/87
[2019-12-10] MEDS: ENOXAPARIN 40 MG/0.4 ML (LOVENOX) SYR SC SCH (13:00)
[2019-12-10 16:00] VITALS: BP 133/74
[2019-12-10] MEDS ORDERED: BETH25TA11 PO (16:51)
[2019-12-10] MEDS ORDERED: TMSL.4C PO (16:51)
--- NOTE | 2019-12-10 17:14 | Discharge Summary ---
Diagnosis/Chief Complaint Date of Admission Dec 08, 2019 at 11:06 Date of Discharge Discharge Date: Dec 10, 2019 Discharge Diagnosis 1. UTI with Pseudomonas from chronic catheter use--improved 2. Urinary Retention/Neurogenic Bladder--meds adjusted during stay 3. Diabetes mellitus II--BS stable 4. Quadriplegia--wheelchair bound Reason Hospital Visit This is a 54 year old quadriplegic male with a chronic indwelling you catheter who has a history of recurrent urinary tract infections who was found to have pseudomonas in his urine which was only sensitive to IV antibiotic therapy. He will be admitted for 3 days of IV antibiotic therapy. Discharge Summary Hospital Course Was the Problem List Reviewed?: Yes Hospital Course This is a 54 year old quadriplegic male with a chronic indwelling you catheter who has a history of recurrent urinary tract infections who was found to have pseudomonas in his urine which was only sensitive to IV antibiotic therapy. He will be admitted for 3 days of IV antibiotic therapy. He was admitted to the medical floor and given IV zosyn. Bladder scans were done after his postvoid residuals and Texas catheter and were greater than 800cc so a you catheter was inserted and his urecholine and flomax doses were increased. The day of discharge, his you catheter was discontinued and after voiding and using his Texas catheter then a postvoid bladder scan was done showing less than 400cc of residual. The patient will be sent home on the higher doses of urecholine and flomax and fwup with wa in 1 week. Labs Laboratory Tests 12/08/19 11:47: Hemoglobin 12.4L, Hematocrit 37L, Mean Corpuscular Volume 79L, Red Cell Distribution Width 15.7H, Mean Platelet Volume 11.5H, Neutrophils (%) (Auto) 76H , Carbon Dioxide Level 18L, Glucose Level 112H 12/08/19 13:35: 12/08/19 15:46: Glucometer 115H 12/08/19 18:02: 12/08/19 21:33: Glucometer 119H 12/09/19 02:58: Glucometer 122H 12/09/19 05:46: Glucometer 112H 12/09/19 15:28: Glucometer 154H 12/09/19 20:59: Glucometer 161H 12/10/19 06:40: Glucometer 143H 12/10/19 11:26: Glucometer 170H 12/10/19 15:18: Glucometer 145H Procedures None. Discharge Physical Examination Allergies: Coded Allergies: povidone-iodine (Verified Allergy, Unknown, 05/25/08) soap (Verified Allergy, Unknown, 05/25/08) Vitals & I&Os Vital Signs Date Time Temp Pulse Resp B/P (MAP) Pulse Ox O2 Delivery O2 Flow Rate FiO2 12/10/19 16:00 36.0 58 18 133/74 (93) 95 Room Air General Appearance: Alert, Oriented X3, Cooperative Respiratory: Clear to Auscultation Cardiovascular: Regular Rate Abdominal: Normal Bowel Sounds, Soft, No Tenderness Extremities: No Clubbing, No Cyanosis, No Edema Psych/Mental Status: Mental Status NL, Mood NL Discharge Home Medications Reviewed and agree with Discharge Medication list on patient's Discharge Instruction sheet Instructions to Patient/Family Please see electronic discharge instructions given to patient. Clinical Quality Measures DVT/VTE Risk/Contraindication: Risk Factor Score Per Nursin RFS Level Per Nursing on Admit: 4+=Very High CHELA PISANO DO Dec 10, 2019 17:14
[2019-12-10 17:44] VITALS: BP 133/74
--- NOTE | 2019-12-10 17:45 | NUR ---
KENNETH HERRERA demonstrates understanding of discharge instructions and accurately returns instructions upon questioning. Copy of Post-Discharge Instructions and Medication Discharge Instructions given to PT. KENNETH HERRERA is able to manage continuing needs after discharge. Patients belongings returned to PT. Skin dry and intact; no breakdown noted. Patient discharged from [facility] on at 1745 . KENNETH HERRERA left floor via WC, accompanied by STAFF.
== END 2019-12-10 17:45 | disposition home or self-care (01) | DRG 698 ==
LOC: 4TH 11:06
PROVIDERS: ADMIT Family Medicine; ATTEND Family Medicine
DX: T83.511A Infection and inflammatory reaction due to indwelling urethral catheter, initial encounter (principal); G82.50 Quadriplegia, unspecified; N39.0 Urinary tract infection, site not specified; B96.5 Pseudomonas (aeruginosa) (mallei) (pseudomallei) as the cause of diseases classified elsewhere; N31.9 Neuromuscular dysfunction of bladder, unspecified; E11.9 Type 2 diabetes mellitus without complications; K21.9 Gastro-esophageal reflux disease without esophagitis; M19.91 Primary osteoarthritis, unspecified site; M54.9 Dorsalgia, unspecified; R53.1 Weakness; Z87.891 Personal history of nicotine dependence; Z79.84 Long term (current) use of oral hypoglycemic drugs
CPT/HCPCS: 36415; 80053; 81000; 82962; 85025

== ENCOUNTER 2020-07-13 12:53 | Emergency (ER) | payer MEDICAID ==
[~2020-07-13] VITALS: Ht 182 cm; Wt 84.0 kg
[~2020-07-13 12:53] MED LIST changes: +ALPR.25T PO; +ASPI-1238 PO; -ASPI-983 PO; +ASPI325T32 PO; +BETH25TA11 PO; +BUSP7.5T5 PO; +CHOL-34 PO; +MULT-1136 PO; +NITR100C10 PO
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
[2020-07-13 14:30] VITALS: BP 134/86
[2020-07-13 14:31] LABS: BILIRUBIN,URINE NEGATIVE (NEGATIVE); COLOR,URINE YELLOW; GLUCOSE, URINE (UA) NEGATIVE (NEGATIVE); KETONES,URINE NEGATIVE (NEGATIVE); LEUKOCYTE ESTERASE ,URINE NEGATIVE (NEGATIVE); NITRITE,URINE NEGATIVE (NEGATIVE); PROTEIN,URINE NEGATIVE (NEGATIVE)
[2020-07-13 14:39] LABS: BACTERIA,URINE NEGATIVE /HPF; CLARITY,URINE CLEAR; URINE OTHER MOD SPERM /HPF
== END 2020-07-13 14:34 | disposition home or self-care (01) ==
LOC: EDUNIT# 12:53 → ER 12:59
DX: N39.0 Urinary tract infection, site not specified (principal); E11.9 Type 2 diabetes mellitus without complications; K21.9 Gastro-esophageal reflux disease without esophagitis; J44.9 Chronic obstructive pulmonary disease, unspecified; Z87.891 Personal history of nicotine dependence; Z16.29 Resistance to other single specified antibiotic; Z86.69 Personal history of other diseases of the nervous system and sense organs; Z79.82 Long term (current) use of aspirin; Z79.84 Long term (current) use of oral hypoglycemic drugs
CPT/HCPCS: 51701; 81000

== ENCOUNTER 2020-10-04 11:54 | Outpatient (RCR) | payer MEDICAID ==
[2020-09-21 10:20] VITALS: BP 98/77
[~2020-10-04] VITALS: Ht 182 cm; Wt 84.0 kg
[2020-10-04 11:50] VITALS: BP 95/74
[~2020-10-04 11:54] MED LIST changes: +CEFEPIME 2,000 MG/SWFI 20 ML IV PUSH IV SCH
== END 2020-10-04 12:00 | disposition home or self-care (01) ==
LOC: SDC 11:54
PROVIDERS: ATTEND Pediatrics
DX: N39.0 Urinary tract infection, site not specified (principal); G82.20 Paraplegia, unspecified
CPT/HCPCS: 36410; 76937; 96374; C1751

== ENCOUNTER 2020-12-12 05:48 | Outpatient (CLI) | payer MEDICAID ==
[~2020-12-12] VITALS: Ht 182.9 cm; Wt 81.8 kg
[~2020-12-12 05:48] MED LIST changes: -CEFEPIME 2,000 MG/SWFI 20 ML IV PUSH IV SCH; -SULF1TAB35 PO; +SULF1TAB38 PO
[2020-12-12] MEDS ORDERED: BETH50TA2 PO (11:14)
[2020-12-12] MEDS ORDERED: TMSL.4C PO (11:14)
[2020-12-12] MEDS ORDERED: CIPR250T3 PO (11:14)
== END 2020-12-12 11:19 | disposition home or self-care (01) ==
LOC: PREOP 05:48
PROVIDERS: ATTEND Urology
DX: Z01.818 Encounter for other preprocedural examination (principal)

== ENCOUNTER 2020-12-14 06:46 | Day surgery (SDC) | payer MEDICAID ==
[2020-12-14] VITALS (10 sets, daily range): BP systolic 77–127; BP diastolic 51–79
[~2020-12-14] VITALS: Ht 182.9 cm; Wt 81.8 kg
[~2020-12-14 06:46] MED LIST changes: +BETH50TA2 PO
[2020-12-14] MEDS ORDERED: cefTRIAXone 1,000 MG in WATER (STERILE) FOR INJECTION 10 ML IV ONE (07:00)
--- NOTE | 2020-12-14 07:03 | Progress Note-Pre Operative ---
Pre-Operative Progress Note H&P Reviewed The H&P was reviewed, patient examined and no changes noted. Date Seen by Provider: Dec 14, 2020 Time Seen by Provider: 07:02 Date H&P Reviewed: Dec 14, 2020 Time H&P Reviewed: 07:02 Pre-Operative Diagnosis: NEUROGENIC BLADDER WITH RETENTION AND INCONTINENCE BECCA EVANS MD Dec 14, 2020 07:03
--- NOTE | 2020-12-14 07:06 | Progress Note-Post Operative ---
Post-Operative Progess Note Surgeon (s)/Yard Truck Driver (s) Surgeon BECCA EAVNS MD Yard Truck Driver: TRISHA LIRA DO Pre-Operative Diagnosis NEUROGENIC BLADDER WITH RETENTION AND INCONTINENCE Post-Operative Diagnosis SAME Procedure & Operative Findings Date of Procedure 12/14/20 Procedure Performed/Findings SUPRAPUBIC TUBE PLACEMENT Anesthesia Type GENERAL Estimated Blood Loss Estimated blood loss (mL): NEGLIGIBLE Specimens/Packing Specimens Removed NONE Packing: NONE BECCA EAVNS MD Dec 14, 2020 07:06
[2020-12-14] MEDS ORDERED: GENTAMICIN 40 MG/ML 2 ML INJ SDV ONE (07:11)
[2020-12-14] MEDS ORDERED: LIDOCAINE 1% INJ 20 ML 20 ML VIAL ONE (07:11)
[2020-12-14] MEDS: LACTATED RINGERS 1,000 ML IV PRN ×2 (07:15→07:55)
[2020-12-14] MEDS ORDERED: fentaNYL INJ 100 MCG/2 ML AMP ONE (07:16)
[2020-12-14] MEDS ORDERED: ONDANSETRON 4 MG/2 ML (SDV) Z0FRAN ONE (07:16)
[2020-12-14] MEDS ORDERED: proPOfol 200 MG/20 ML (DIPRIVAN) VIAL IV ONE (07:16)
[2020-12-14] MEDS ORDERED: LIDOCAINE PF 2% 5 ML (XYLOCAINE) VIAL ONE (07:16)
[2020-12-14] MEDS ORDERED: MIDAZOLAM 2 MG/2 ML (VERSED) VIAL ONE (07:17)
[2020-12-14] MEDS ORDERED: SEVOFLURANE (ULTANE) 15 ML INHAL SOLN ONE (08:18)
[2020-12-14] MEDS ORDERED: ONDANSETRON 4 MG/2 ML (SDV) Z0FRAN IVP PRN (08:45)
[2020-12-14] MEDS ORDERED: morphine INJ 10 MG/ML 1ML (SYR OR VIAL) IVP ONE (08:45)
[2020-12-14] MEDS ORDERED: fentaNYL INJ 100 MCG/2 ML AMP IVP ONE (08:45)
--- NOTE | 2020-12-14 08:50 | Anesthesia-General Post-Op ---
General Patient Condition Mental Status/LOC: Same as Preop Cardiovascular: Satisfactory Nausea/Vomiting: Absent Respiratory: Satisfactory Pain: Controlled Complications: Absent Post Op Complications Complications None Follow Up Care/Instructions Patient Instructions None needed. Anesthesia/Patient Condition Patient Condition Patient is doing well, no complaints, stable vital signs, no apparent adverse anesthesia problems. No complications reported per nursing. SHOBHA VU CRNA Dec 14, 2020 08:50
[2020-12-14] MEDS ORDERED: ALPRAZolam 0.25 MG (XANAX) TAB PO PRN (09:45)
[2020-12-14] MEDS ORDERED: LACTATED RINGERS 1,000 ML IV SCH (09:45)
[2020-12-14] MEDS ORDERED: metFORMIN 850 MG (GLUCOPHAGE) TAB PO SCH (10:06)
[2020-12-14] MEDS: busPIRone 15 MG (BUSPAR) TABLET PO SCH ×2 (10:13→20:31)
[2020-12-14] MEDS: PIOGLITAZONE 30MG (ACTOS) TAB PO SCH ×2 (10:14→18:12)
[2020-12-14] MEDS: ASCORBIC ACID (VIT C) 500 MG TABLET PO SCH (10:14)
--- NOTE | 2020-12-14 10:37 | OPERATIVE REPORT ---
DATE OF SERVICE: 12/14/2020 PREOPERATIVE DIAGNOSIS: Neurogenic bladder with retention and incontinence. POSTOPERATIVE DIAGNOSIS: Neurogenic bladder with retention and incontinence. OPERATION PERFORMED: Suprapubic tube placement. SURGEON: Oscar Evans MD. EEG TECH: Christiano Kilgore DO. ANESTHESIA: General. COMPLICATIONS: None. DESCRIPTION OF PROCEDURE: Under satisfactory general anesthesia, the patient in supine position, the abdomen, genitalia and thigh were prepped and draped in the usual sterile fashion. Before doing so, a Sánchez catheter was inserted in the bladder that was drained and then filled with 400 mL of fluid with antibiotic and the catheter was clamped. An incision was made from the symphysis pubis toward the umbilicus for a few centimeters, carried through the skin, subcutaneous tissue and fascia. The recti were identified. The midline was entered. The bladder was identified. The dissection was carried over the anterior wall. It was confirmed to be the bladder by a syringe and needle draining fluid. A stab wound was performed through which I inserted a 22-Armenian 2-way 5 mL balloon catheter, inflated the balloon to 10 mL and connected to gravity. There was no need for suture and there was no leakage whatsoever and no need for a drain. Closure was performed in layers, the fascia with interrupted 0 Vicryl, the skin with luz marina, and the suprapubic tube was secured in position with an 0 silk suture. Needle, sponge, instruments correct x2. Estimated blood loss negligible, none of which was replaced. The patient tolerated the procedure and anesthesia well and was sent to recovery room in stable condition. Job ID: [id number] DocumentID: [id number] Dictated Date: 12/14/2020 08:37:16 Insurance Plan Specialist Date: 12/14/2020 10:36:47 Dictated By: OSCAR EVANS MD
[2020-12-14 16:27] LABS: POTASSIUM 4.2 MMOL/L (3.6-5.0)
[2020-12-14 16:32] LABS: CREATININE SERUM 0.74 MG/DL (0.60-1.30)
--- NOTE | 2020-12-14 16:33 | Consultation ---
HPI History of Present Illness: 55 yo male with spinal cord injury and history of recurrent UTI with neurogenic bladder, admitted after suprapubic catheter placement per Dr. Harden. His main concern is making sure he gets bipap which he uses at home every time he sleeps. He was not expecting to be admitted and did not bring his machine. Source: patient Date seen by provider: Dec 14, 2020 Time Seen by Provider: 14:45 Attending Physician Oscar Harden MD [facility] Consult Date of Admission Home Medications Home Medications Reviewed patient Home Medication Reconciliation performed by pharmacy medication reconciliations metallurgy laboratory technician and/or nursing. Patients Allergies have been reviewed. Allergies Coded Allergies: povidone-iodine (Verified Allergy, Unknown, 05/25/08) soap (Verified Allergy, Unknown, 05/25/08) EVE-Cvqqzd-Qvjnze Hx Patient Social History 2nd Hand Smoke Exposure: No Recent Hopitalizations: No Immunizations Up To Date Date of Pneumonia Vaccine: Jan 30, 2019 Date of Influenza Vaccine: Feb 06, 2020 Past Medical History PMHx: C3 spinal cord injury Neurogenic bladder Sleep apnea Diabetes Family Medical History Significant Family History: No Pertinent Family Hx Review of Systems ([facility]) Constitutional: No fever Respiratory: No cough, No short of breath Cardiovascular: No chest pain Gastrointestinal: no symptoms reported Reviewed Test Results Reviewed Test Results Lab Laboratory Tests Test 12/14/20 07:11 12/14/20 15:52 Range/Units Glucometer 133 H 70-110 MG/DL Sodium Level 135 135-145 MMOL/L Potassium Level 4.2 3.6-5.0 MMOL/L Chloride Level 103 98-107 MMOL/L Carbon Dioxide Level 18 L 21-32 MMOL/L Anion Gap 14 5-14 MMOL/L Blood Urea Nitrogen 9 7-18 MG/DL Creatinine 0.74 0.60-1.30 MG/DL Estimat Glomerular Filtration Rate 110 BUN/Creatinine Ratio 12 Glucose Level 179 H 70-105 MG/DL Calcium Level 9.4 8.5-10.1 MG/DL Physical Exam-([facility]) Physical Exam Vital Signs VS - Last 72 Hours, by Label 12/14/20 12/14/20 12/14/20 12/14/20 08:25 08:25 08:30 08:40 Temp 36.4 Resp 18 16 20 B/P (MAP) 116/77 (90) 105/68 (80) 95/65 (75) Pulse Ox 96 96 95 O2 Delivery OxyMask OxyMask OxyMask OxyMask O2 Flow Rate 6 6 4 2 12/14/20 12/14/20 12/14/20 12/14/20 08:45 08:50 09:00 09:00 Temp 36.2 Pulse 66 Resp 18 20 16 B/P (MAP) 117/79 (92) 77/51 (60) 127/77 (94) Pulse Ox 97 95 94 O2 Delivery OxyMask Room Air Room Air Room Air O2 Flow Rate 2 12/14/20 12/14/20 12/14/20 12/14/20 09:00 09:10 09:13 09:52 Temp 36.2 Pulse Resp 16 B/P (MAP) 120/76 (91) Pulse Ox 95 O2 Delivery Room Air Room Air Room Air Room Air 12/14/20 12/14/20 12/14/20 12/14/20 11:59 16:08 19:26 21:09 Temp 36.3 36.4 36.6 Pulse 64 76 78 Resp 18 18 16 B/P (MAP) 86/56 (66) 78/54 (62) 94/68 (77) Pulse Ox 94 96 98 97 O2 Delivery Room Air Room Air Room Air O2 Flow Rate 21.00 Capillary Refill : General Appearance: no apparent distress Respiratory: lungs clear, normal breath sounds Cardiovascular: regular rate, rhythm, no murmur Gastrointestinal: normal bowel sounds, non tender, soft Neurologic/Psychiatric: alert, normal mood/affect, other (able to move arms at shoulders, wrists and fingers in flexion without movement) Skin: normal color, warm/dry Assessment/Plan Assessment/Plan (1) Sleep apnea Status: Chronic Assessment & Plan: Bipap when sleeping (2) Paraplegia Status: Chronic (3) Diabetes mellitus, type 2 Status: Chronic Assessment & Plan: Diabetic diet, resume home meds Qualifiers: Qualified Codes: E11.69 - Type 2 diabetes mellitus with other specified complication (4) Neurogenic bladder Status: Chronic Assessment & Plan: s/p suprapubic catheter per PIPPA Wood MD Dec 14, 2020 16:33
[2020-12-14 16:55] LABS: CALCIUM 9.4 MG/DL (8.5-10.1)
[2020-12-14] MEDS: BACLOFEN 10 MG (LIORESAL) TAB PO PRN (20:35)
[2020-12-14] MEDS ORDERED: DOCUSATE SODIUM 100 MG (COLACE) CAP PO SCH (21:00)
[2020-12-14] MEDS ORDERED: PANTOPRAZOLE 40 MG (PROTONIX) TAB PO SCH (21:00)
[2020-12-15] VITALS: BP 100/65
[2020-12-15 04:17] VITALS: BP 91/55
[2020-12-15] MEDS: ASCORBIC ACID (VIT C) 500 MG TABLET PO SCH (06:44)
[2020-12-15 06:52] LABS: POTASSIUM 4.2 MMOL/L (3.6-5.0)
[2020-12-15 06:57] LABS: CREATININE SERUM 0.71 MG/DL (0.60-1.30)
[2020-12-15] MEDS ORDERED: MULTIVIT W/MINERALS TAB (THERAGRAN M) PO SCH (07:00)
[2020-12-15 07:37] VITALS: BP 103/64
[2020-12-15] MEDS: PIOGLITAZONE 30MG (ACTOS) TAB PO SCH (08:34)
[2020-12-15] MEDS: BACLOFEN 10 MG (LIORESAL) TAB PO PRN (08:34)
[2020-12-15] MEDS: busPIRone 15 MG (BUSPAR) TABLET PO SCH (08:34)
[2020-12-15] MEDS ORDERED: NON-FORMULARY MEDICATION 1 EA EA (Cranberry Conc/Ascorbic Acid (Cranberry Plus Vitamin C S PO SCH (09:00)
[2020-12-15] MEDS ORDERED: VITAMIN D3 25 MCG (1,000 UNITS) TABLET PO SCH (09:00)
--- NOTE | 2020-12-15 09:02 | Progress Note - Urology ---
Progress Note-Urology Progress Notes/Assess & Plan Progress/Assessment & Plan RECOVERED VERY WELL. NO COMPLAINTS. HOME WITH INSTRUCTIONS Final Diagnosis NEUROGENIC BLADDER WITH RETENTION AND INCONTINENCE BECCA EVANS MD Dec 15, 2020 09:02
--- NOTE | 2020-12-15 09:07 | Discharge Inst-Urology ---
Discharge Inst-Urology Reconcile Patient Problems Problems Reviewed?: Yes Final Diagnosis NEUROGENIC BLADDER WITH RETENTION AND INCONTINENCE Patient Instructions/Follow Up Plan/Assessment/Instructions Please make appointment to been seen in office in 2 weeks. Rest till then Rocephin 1gm iv before discharge Hold Cipro, ASA, Flomax, and Bethanechol Discharge on leg bag day time and large bag with instructions. Make sure patient secure catheter at all times Change dressing to a public health one or off per patient choice Showers no bath Keep bowels soft and moving Increase oral fluids for 48 hours and then as needed. Diet as tolerated. If questions or concerns contact your physician Or seek help at emergency department. BECCA EVANS MD Dec 15, 2020 09:07
[2020-12-15] MEDS ORDERED: cefTRIAXone 1,000 MG in WATER (STERILE) FOR INJECTION 10 ML IV ONE ×2 (09:45→10:15)
--- NOTE | 2020-12-15 14:17 | Anesthesia-General Post-Op ---
General Patient Condition Mental Status/LOC: Same as Preop Cardiovascular: Satisfactory Nausea/Vomiting: Absent Respiratory: Satisfactory Pain: Controlled Complications: Absent Post Op Complications Complications None Follow Up Care/Instructions Patient Instructions None needed. Anesthesia/Patient Condition Patient Condition Patient is doing well, no complaints, stable vital signs, no apparent adverse anesthesia problems. No complications reported per nursing. ROSEY ALVARES CRNA Dec 15, 2020 14:17
== END 2020-12-15 11:15 ==
LOC: SDC 06:46 → 4TH 09:23 → SDC 12-15 11:15
PROVIDERS: ATTEND Urology
DX: N31.8 Other neuromuscular dysfunction of bladder (principal); R32 Unspecified urinary incontinence; R33.9 Retention of urine, unspecified; G82.50 Quadriplegia, unspecified; G47.33 Obstructive sleep apnea (adult) (pediatric); J44.9 Chronic obstructive pulmonary disease, unspecified; K21.9 Gastro-esophageal reflux disease without esophagitis; E11.9 Type 2 diabetes mellitus without complications; Z87.891 Personal history of nicotine dependence; Z99.89 Dependence on other enabling machines and devices; Z79.899 Other long term (current) drug therapy; Z79.82 Long term (current) use of aspirin; Z79.84 Long term (current) use of oral hypoglycemic drugs
CPT/HCPCS: 36415; 80048; 82947; 87081; 94660

== ENCOUNTER 2021-10-15 13:36 | Emergency (ER) | payer MEDICAID ==
[~2021-10-15] VITALS: Ht 182 cm; Wt 83.9 kg
[~2021-10-15 13:36] MED LIST changes: +FLUC100T10 PO; -FLUC100T6 PO; +PIOG1TAB23 PO; -PIOG1TAB30 PO
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
[2021-10-15 14:31] LABS: BILIRUBIN,URINE NEGATIVE (NEGATIVE); CLARITY,URINE CLEAR; COLOR,URINE YELLOW; GLUCOSE, URINE (UA) NEGATIVE (NEGATIVE); KETONES,URINE NEGATIVE (NEGATIVE); LEUKOCYTE ESTERASE ,URINE 1+ (NEGATIVE); NITRITE,URINE NEGATIVE (NEGATIVE); PH,URINE 7.5 (5-9); PROTEIN,URINE 1+ (NEGATIVE)
[2021-10-15 14:34] VITALS: BP 166/92
[2021-10-15 14:40] LABS: BACTERIA,URINE MODERATE /HPF
== END 2021-10-15 14:34 | disposition home or self-care (01) ==
LOC: EDUNIT# 13:36 → ER 13:39
DX: T83.010A Breakdown (mechanical) of cystostomy catheter, initial encounter (principal); E66.9 Obesity, unspecified; G47.30 Sleep apnea, unspecified; F17.290 Nicotine dependence, other tobacco product, uncomplicated; Z68.25 Body mass index [BMI] 25.0-25.9, adult; Z99.89 Dependence on other enabling machines and devices
CPT/HCPCS: 51702; 81000; 87077; 87088

== ENCOUNTER 2021-11-22 12:36 | Emergency (ER) | payer MEDICAID ==
[~2021-11-22] VITALS: Ht 182.8 cm; Wt 83.9 kg
[~2021-11-22 12:36] MED LIST changes: -BETH50TA2 PO; +BETH50TA3 PO
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
[2021-11-22 15:00] VITALS: BP 93/59
== END 2021-11-22 15:10 | disposition home or self-care (01) ==
LOC: EDUNIT# 12:36 → ER 12:38
DX: T83.091A Other mechanical complication of indwelling urethral catheter, initial encounter (principal); G47.30 Sleep apnea, unspecified; J44.9 Chronic obstructive pulmonary disease, unspecified; Z99.89 Dependence on other enabling machines and devices
CPT/HCPCS: 99282

== ENCOUNTER → 2022-08-28 | Outpatient (CLI) | payer MEDICAID ==
--- NOTE | 2022-08-28 17:30 | Diagnostic Imaging Report ---
EXAMINATION: CT abdomen and pelvis without contrast. TECHNIQUE: Multiple contiguous axial images were obtained through the abdomen and pelvis without the use of intravenous contrast. All CT scans use one or more of the following dose optimizing techniques: automated exposure control, MA and/or KvP adjustment based on patient size and exam type or iterative reconstruction. HISTORY: Kidney stones and hematuria. COMPARISON: 07/08/2014 FINDINGS: Lung bases: Bibasilar dependent atelectasis. Solid organs: The liver is normal. The gallbladder is surgically absent. There is no biliary ductal dilation. Pancreas is normal. Spleen is normal. Adrenal glands are normal. The kidneys are normal without visualized calculus or hydronephrosis. Bowel: The stomach and small bowel are normal without obstruction. The colon is normal. The appendix is normal. Peritoneum: There is no intraperitoneal free fluid or free air. No suspicious lymphadenopathy. Vasculature: Calcification of the aorta without aneurysm. Musculoskeletal: Degenerative changes of the spine without suspicious osseous lesion or compression fracture. Pelvis: The prostate gland is normal. There is mild bladder wall thickening with a percutaneous suprapubic catheter in place. IMPRESSION: 1. No acute abnormality in the abdomen or pelvis. 2. Mild bladder wall thickening. Recommend correlation with any signs or symptoms of cystitis. 3. No visualized renal calculus or hydronephrosis. Dictated by: Dictated on workstation # [id number]
== END ==
LOC: RAD 11:09
PROVIDERS: ATTEND Urology
DX: N32.89 Other specified disorders of bladder (principal); N21.0 Calculus in bladder; N31.9 Neuromuscular dysfunction of bladder, unspecified; T83.010A Breakdown (mechanical) of cystostomy catheter, initial encounter; Z91.040 Latex allergy status
CPT/HCPCS: 74176

== ENCOUNTER → 2023-01-30 | Outpatient (CLI) | payer MEDICAID ==
[2023-01-30 15:16] LABS: BASOPHILS # (AUTO) 0.1 10^3/uL (0.0-0.1); BASOPHILS % (AUTO) 1 % (0-10); EOSINOPHILS # (AUTO) 0.4 10^3/uL (0.0-0.3); EOSINOPHILS % (AUTO) 4 % (0-10); HEMATOCRIT 38 % (40-54); HEMOGLOBIN 12.4 g/dL (13.3-17.7); LYMPHOCYTES # (AUTO) 1.3 10^3/uL (1.0-4.0); LYMPHOCYTES % (AUTO) 16 % (12-44); MEAN CORPUSCULAR HEMOGLOBIN 26 pg (25-34); MEAN CORPUSCULAR HGB CONC 33 g/dL (32-36); MEAN CORPUSCULAR VOLUME 80 fL (80-99); MEAN PLATELET VOLUME 11.5 fL (9.0-12.2); MONOCYTES # (AUTO) 0.6 10^3/uL (0.0-1.0); MONOCYTES % (AUTO) 7 % (0-12); NEUTROPHILS # (AUTO) 5.9 10^3/uL (1.8-7.8); NEUTROPHILS % (AUTO) 70 % (42-75); PLATELET COUNT 249 10^3/uL (130-400); WHITE BLOOD COUNT 8.4 10^3/uL (4.3-11.0)
[2023-01-30 15:29] LABS: ALBUMIN 4.2 GM/DL (3.2-4.5)
[2023-01-30 15:30] LABS: CALCIUM 9.1 MG/DL (8.5-10.1)
[2023-01-30 15:31] LABS: TOTAL PROTEIN 7.7 GM/DL (6.4-8.2)
[2023-01-30 15:33] LABS: BILIRUBIN,TOTAL 0.8 MG/DL (0.1-1.0)
[2023-01-30 15:35] LABS: CREATININE SERUM 0.64 MG/DL (0.60-1.30)
== END ==
LOC: LAB 14:17
PROVIDERS: ATTEND Family Medicine
DX: R53.83 Other fatigue (principal); E11.65 Type 2 diabetes mellitus with hyperglycemia; E78.2 Mixed hyperlipidemia
CPT/HCPCS: 36415; 80053; 80061; 83036; 85025